=== PATIENT | female | born 1945 | race African-American/Black ===

== ENCOUNTER → 2016-08-08 | Day surgery (SDC) | payer MEDICARE ==
[~2016-08-08] MED LIST: ACET1TAB86 PO; AMLO5 PO; APIX5TAB PO; ASPI-99 PO; ASPI325T PO; ASPI81CH PO; ATEN50TA PO; ATOR20TA15 PO; BENT20TA PO; CELE100C PO; CIPR-9 PO; CLON.1 PO; CLON.2 PO; CLOTCRE TOPICAL; COUG100S PO; DOCU1CAP39 PO; FAMO20TA2 PO; FERR325T20 PO; FLUO20CA12 PO; GABA100C4 PO; GLIP10TA6 PO; HYDR-3516 PO; HYDR-3533 PO; HYDR12.57 PO; ISOS10TA PO; ISOS30TA3 PO; LACTATED RINGER'S 1000 ML INJ 1,000 ML ONE; LANTINJ SQ; LATA0.002 EACH EYE; LEVEMIR SQ; LIDOCAINE HCL 1% 50 ML VIAL ONE; LISI-515 PO; METF500 PO; METF850T PO; MIDAZOLAM HCL 2 MG/2 ML VIAL ONE; NALO1TAB2 PO; NEXI40CA PO; NORC5TAB PO; OXYB5TAB PO; OXYB5TAB10 PO; PANT40TA3 PO; PERC7.5T13 PO; POLY17S PO; PRAV40TA PO; PRAV40TA2 PO; PROPOFOL 200 MG/20 ML AMP IV ONE; TRIAMCINOLONE ACETONIDE 40 MG/ML VIAL ONE; VITA500T2 PO; XARE20TA PO
--- NOTE | 2016-08-08 14:06 | TN ---
cc: KATHLEEN MACDONALD M.D. DATE OF SURGERY: 08/08/2016 PREOPERATIVE DIAGNOSIS Right hip osteoarthritis, arthrogryposis (hip stiffness). POSTOPERATIVE DIAGNOSIS Right hip osteoarthritis, arthrogryposis (hip stiffness). PROCEDURE Right hip manipulation, intraarticular steroid injection, fluoroscopic guidance of needle under anesthesia. SURGEON Patrice Macdonald MD ASSESSMENT Staff SPECIMEN None. ESTIMATED BLOOD LOSS None. COMPLICATIONS None. ANESTHESIA General, TIVA. DRAINS None. CONDITION Stable PLAN OF ACTIVITY Per orders. DETAILS OF PROCEDURE The patient was brought into the operating room, had satisfactory TIVA anesthesia by the Department of Anesthesia. The right hip and lower extremity was prepped and draped in the usual sterile manner. Under fluoroscopic guidance an 18-gauge spinal needle was introduced into the right hip joint. The hip was injected with 1 cc of Kenalog 40 and 5 cc of 1% plain lidocaine. The needle was withdrawn. A Band-Aid was placed over the injection site. The hip was manipulated under anesthesia. Flexion was to 110 degrees, abduction was to 40 degrees with good rotation. The patient tolerated the procedure well and arrived in the recovery room in stable and satisfactory addition. X-ray of the right hip, one view AP, shows status post right hip manipulation, satisfactory position of the 18-gauge spinal needle in the right hip joint. Right hip osteoarthritis. No obvious fracture, dislocation or subluxation. MD LOKI Ngo/MARIELY /1:49 PM /2:01 PM
== END | disposition home or self-care (01) ==
LOC: ESDC 12:04
PROVIDERS: ATTEND Orthopaedic Surgery Orthopaedic Surgery of the Spine
DX: M16.11 Unilateral primary osteoarthritis, right hip (principal); Q68.8 Other specified congenital musculoskeletal deformities; E11.9 Type 2 diabetes mellitus without complications; Z79.4 Long term (current) use of insulin
CPT/HCPCS: 01200; 27275; 73501; 76000; 82948; J2250; J3010; J3301; J7120

== ENCOUNTER 2016-10-30 12:01 | Day surgery (SDC) | payer MEDICARE ==
[~2016-10-30] VITALS: Ht 160 cm; Wt 95.5 kg
[~2016-10-30 12:01] MED LIST changes: -ACET1TAB86 PO; -AMLO5 PO; -APIX5TAB PO; -ASPI-99 PO; -ASPI325T PO; -ATOR20TA15 PO; -CIPR-9 PO; -CLON.1 PO; -CLON.2 PO; -COUG100S PO; -DOCU1CAP39 PO; -FAMO20TA2 PO; -FERR325T20 PO; -FLUO20CA12 PO; -GABA100C4 PO; -HYDR-3516 PO; -ISOS10TA PO; -ISOS30TA3 PO; +LACTATED RINGER'S 1000 ML INJ 1,000 ML IV ONE; -LACTATED RINGER'S 1000 ML INJ 1,000 ML ONE; -LEVEMIR SQ; -LIDOCAINE HCL 1% 50 ML VIAL ONE; -LISI-515 PO; -METF500 PO; -MIDAZOLAM HCL 2 MG/2 ML VIAL ONE; +NEOSTIGMINE 3 MG/3 ML SYR IV ONE; +ONDANSETRON HCL 4 MG/2 ML VIAL IV PUSH ONE; -OXYB5TAB10 PO; -PANT40TA3 PO; -PERC7.5T13 PO; +PHENYLEPH/NS 1000 MCG/10 ML SYR IV ONE; -POLY17S PO; -PRAV40TA PO; -TRIAMCINOLONE ACETONIDE 40 MG/ML VIAL ONE; -VITA500T2 PO; -XARE20TA PO; +ePHEDrine/NS 25 MG/5 ML SYR IV ONE
[2016-10-30] MEDS ORDERED: ATOR20TA15 PO (12:59)
[2016-10-30 13:00] VITALS: BP 163/80; PULSE 79; RESP 16; TEMP 98; O2SAT 98
[2016-10-30] MEDS ORDERED: XARE20TA PO (13:23)
[2016-10-30] MEDS ORDERED: CHLORHEXIDINE GLUCONATE 4% SOLN 120 ML BTL TOPICAL SCH (13:45)
[2016-10-30] MEDS ORDERED: ceFAZolin 1,000 MG/NS 100 ML IV SCH ×2 (13:45)
[2016-10-30] MEDS ORDERED: INSULIN HUMAN REGULAR 1,000 UNITS/10 ML VIAL SQ PRN (13:45)
[2016-10-30] MEDS ORDERED: CHLORHEXIDINE GLUCONATE 2 % 1 PACK (2 CLOTHS) TOPICAL PRN (13:45)
[2016-10-30] MEDS ORDERED: METOPROLOL TARTRATE 25 MG TAB PO PRN (13:45)
[2016-10-30] MEDS ORDERED: POVIDONE IODINE 5% (ANTISEPSIS KIT) 4 APPLICATIONS EACH NARE PRN (13:45)
[2016-10-30] MEDS ORDERED: SODIUM CHLORID 0.9% 500 ML IV PRN (13:45)
[2016-10-30] MEDS ORDERED: LACTATED RINGER'S 1000 ML IV PRN (13:45)
[2016-10-30] MEDS ORDERED: ceFAZolin INJ 1,000 MG VIAL ONE (13:55)
[2016-10-30] MEDS ORDERED: GENTAMICIN SULFATE 80 MG/2 ML VIAL IRRIGATION ONE (15:30)
[2016-10-30] MEDS ORDERED: BUPIVACAINE/EPINEPHRINE 0.25% 50 ML VIAL INFIL ONE (15:30)
[2016-10-30] MEDS ORDERED: fentaNYL CITRATE 250 MCG/5 ML AMP ONE (17:15)
[2016-10-30] MEDS ORDERED: *ENALAPRILAT 1.25 MG/ML VIAL PERIprocedural Use ONLY ONE (17:32)
[2016-10-30] MEDS ORDERED: *ONDANSETRON 4 MG VIAL PERIprocedural Use ONLY ONE (17:44)
[2016-10-30] MEDS ORDERED: ACETAMINOPHEN/HYDROcodone 325 MG/7.5 MG TAB ONE (18:00)
--- NOTE | 2016-10-30 18:04 | RADRPT ---
EXAM DATE/TIME: 10/30/2016 16:26 [facility] COMPARISON: No previous studies available for comparison. INDICATIONS : Lumbar spine L4-5 laminectomy. OR. MEDICAL HISTORY : Cardiovascular disease. Hypertension Arthritis. Diabetes. SURGICAL HISTORY : Hysterectomy. ENCOUNTER: Initial ACUITY: 1 day PAIN SCORE: Non-responsive. LOCATION: Lumbar L4-5 FINDINGS: A single lateral view of the lumbar spine was performed. A localizer is identified above and below th e L5 lamina. CONCLUSION: Level localizers at the L5 level. Héctor Barrios MD on October 30, 2016 at 18:01 Board Certified Radiologist. This report was verified electronically.
[2016-10-30] MEDS ORDERED: ACETAMINOPHEN/HYDROcodone 325 MG/7.5 MG TAB PO PRN ×2 (18:15)
[2016-10-30] MEDS ORDERED: DO NOT ADM ANY ANTICOAGULANT DRUGS PRN (18:30)
[2016-10-30 18:45] VITALS: BP 175/78; PULSE 82; RESP 18; O2SAT 94
--- NOTE | 2016-10-31 15:52 | EKG ---
Date Performed: 10/30/2016 Time Performed: 13:51:19 PTAGE: 71 years EKG: Sinus rhythm LEFT VENTRICULAR HYPERTROPHY AND ST-T CHANGE POSSIBLE ANTERIOR MYOCARDIAL INFARCTION , OF INDETERMIN ATE AGE Compared to prior tracing no significant change ABNORMAL ECG PREVIOUS TRACING : 06/21/2016 10.30 DOCTOR: Evangelina Huston Interpretating Date/Time 10/31/2016 15:48:31
--- NOTE | 2016-11-01 08:16 | MP ---
cc: KATHLEEN TUCKER M.D., ELIZABETH M.D. MILLER, CRAIG D.O. DHAND, ARUN M.D. DATE OF SURGERY: 10/30/2016 PREOPERATIVE DIAGNOSIS 1. L4-5 moderately severe spinal stenosis. 2. L4-5 grade 1 spondylolisthesis. 3. Left greater right lumbar radiculitis with left greater than right lower extremity weakness, left foot drop. 4. Lumbar spine degenerative disk disease, osteoarthritis. POSTOPERATIVE DIAGNOSIS 1. L4-5 moderately severe spinal stenosis. 2. L4-5 grade 1 spondylolisthesis. 3. Left greater right lumbar radiculitis with left greater than right lower extremity weakness, left foot drop. 4. Lumbar spine degenerative disk disease, osteoarthritis. PROCEDURE L4-5 bilateral decompressive hemilaminectomy, bilateral foraminotomy, bilateral partial facetectomy with decompression of the nerve roots. SURGEON Patrice Tucker MD DAIRY LAB TECHNICIAN DESMOND Gonzalez. ESTIMATED BLOOD LOSS 200 ccs. SPECIMEN None. ANESTHESIA General. DRAIN None. CONDITION Stable. PLAN OF ACTIVITY As per orders. PROCEDURE By conventions assistant DESMOND Gonzalez was present for the entire surgical case. She was medically necessary for the entire case because of the complexity of the case and to facilitate the performance of the procedure. The OFFICIAL GREETER at the back table was not a skill set for this case to manipulate the instruments, e.g., multiple different types of soft tissue retractors and nerve root retractors. The patient was brought in the operating room and had satisfactory general endotracheal anesthesia by Dr. Drake, Department of Anesthesia. Because of the patient's obesity great care was made to protect all pressure points. The lumbosacral spine was prepped and draped in usual sterile manner. Localizing x-ray was used to confirm the L4-5 interspace. 0.25% Marcaine with epinephrine was used to infiltrate the operative site to provide postoperative analgesia and hemostasis. Small midline incision was made over L4-5. Dissection was carried through skin and subcutaneous tissue down to the tips of the posterior spinous processes. The paraspinal musculature was gently removed from the posterior elements. A bilateral localizing x-ray again was used to confirm the L4-5 interspace. A bilateral decompressive hemilaminectomy was performed at L4-5. The decompression was carried down to just below the pedicle of L5 and just to above the interspace at L4-5. The patient was found to have moderately severe to severe spinal stenosis, significant foraminal stenosis. The bilateral decompressive hemilaminectomy was performed, and also bilateral foraminotomy, partial facetectomies. With this the patient was found to have very excellent decompression of the neurological elements. There is no evidence of any CSF leaks or bleeding. SurgiFlo was used to maintain hemostasis. The wound was irrigated with copious amounts of sterile saline antibiotic solution. The wound itself was dry. The wound was closed in routine layers, fascia was closed with #2 Tycron suture, subcu layer with 2-0 Vicryl, skin was approximated with a running subcuticular 3-0 Vicryl with Dermabond on the skin. Sterile dressings were applied. The patient tolerated the procedure well and arrived in the recovery room in stable and satisfactory condition. MD LOKI Ngo/HARPER /4:57 PM /7:58 AM
== END 2016-10-30 18:45 | disposition home or self-care (01) ==
LOC: HSDC 12:01
PROVIDERS: ATTEND Orthopaedic Surgery Orthopaedic Surgery of the Spine
DX: M48.06 Spinal stenosis, lumbar region (principal); M43.16 Spondylolisthesis, lumbar region; M21.372 Foot drop, left foot; M54.16 Radiculopathy, lumbar region; R53.1 Weakness; M51.36 Other intervertebral disc degeneration, lumbar region; R94.31 Abnormal electrocardiogram [ECG] [EKG]; E11.9 Type 2 diabetes mellitus without complications; I10 Essential (primary) hypertension; I25.10 Atherosclerotic heart disease of native coronary artery without angina pectoris; Z79.4 Long term (current) use of insulin
CPT/HCPCS: 00630; 63030; 72020; 76000; 82948; 93005; J0690; J1580; J2370; J2405; J2710; J3010; J7120

== ENCOUNTER 2016-11-01 09:56 | Inpatient (IN) | payer MEDICARE ==
[~2016-11-01] VITALS: Ht 165.1 cm; Wt 103.3 kg
[2016-11-01] VITALS (14 sets, daily range): BP systolic 146–232; BP diastolic 61–106; PULSE 85–111; RESP 16–23; TEMP 98.4–102.8; O2SAT 91–100
[~2016-11-01 09:56] MED LIST changes: +ATOR20TA15 PO; -BENT20TA PO; -CLOTCRE TOPICAL; -HYDR-3533 PO; -LACTATED RINGER'S 1000 ML INJ 1,000 ML IV ONE; -NALO1TAB2 PO; -NEOSTIGMINE 3 MG/3 ML SYR IV ONE; -NORC5TAB PO; -ONDANSETRON HCL 4 MG/2 ML VIAL IV PUSH ONE; -PHENYLEPH/NS 1000 MCG/10 ML SYR IV ONE; -PRAV40TA2 PO; -PROPOFOL 200 MG/20 ML AMP IV ONE; +XARE20TA PO; -ePHEDrine/NS 25 MG/5 ML SYR IV ONE
[2016-11-01] MEDS ORDERED: PERC7.5T13 PO (10:30)
--- NOTE | 2016-11-01 10:54 | PD ---
HPI Chief Complaint: Back/ Neck Pain or Injury Time Seen by Provider: 10:15 Travel History International Travel<30 days: No Contact w/Intl Traveler<30days: No Traveled to known affect area: No History of Present Illness HPI 71yo F with PMH of HTN, IDDM presents to the ED with c/o inability to bear weight on either leg. Pt had L4-5 bilateral decompressive hemilaminectomy, bilateral foraminotomy, bilateral partial facetectomy with decompression of nerve roots by Dr. Miller on 10/30/16. As per daughter, pt has been more lethargic since the surgery and last took oxycodone at 1am today and only took half. States she has not been as active and has not gotten out of bed. States that she is having worsening pain and weakness on left leg and now is unable to bear weight on right leg which is new. Denies any new numbness. Pt feels warm at home but no documented fever. On review of systems, pt states she has chest pain but cannot elaborate on it. PFSH Past Medical History Hx Anticoagulant Therapy: No (off for a week though, xarelto) Arthritis: Yes Blood Disorders: No Cancer: No Cardiovascular Problems: Yes (htn) High Cholesterol: Yes Diabetes: Yes (metformin) Patient Takes Glucophage: Yes Diminished Hearing: No Diverticulitis: Yes Gastrointestinal Disorders: Yes (GERD) GERD: Yes Genitourinary: No Hypertension: Yes Immune Disorder: No Musculoskeletal: Yes Neurologic: Yes (FOOT DROP ON LEFT) Psychiatric: No Reproductive: No Respiratory: No Tetanus Vaccination: > 5 Years Influenza Vaccination: No ?: Not : 5 Para: 5 Miscarriage: 0 : 0 Past Surgical History Abdominal Surgery: No AICD: No Cardiac Surgery: Yes (CARDIAC CATH) Ear Surgery: No Endocrine Surgery: No Eye Surgery: No Genitourinary Surgery: No Gynecologic Surgery: No Hysterectomy: Yes Joint Replacement: No Oral Surgery: No Pacemaker: No Thoracic Surgery: No Other Surgery: Yes (partial hysterectomy 20 yrs ) Social History Alcohol Use: No Tobacco Use: No Substance Use: No Allergies-Medications (Allergen,Severity, Reaction): Coded Allergies: Darvocet-N 100 (Verified Allergy, Severe, RASH, 11/01/16) Reported Meds & Prescriptions Reported Meds & Active Scripts Active Reported Percocet (Oxycodone-Acetaminophen) 7.5-325 mg Tab 1 Tab PO Q4H PRN Xarelto (Rivaroxaban) 20 Mg Tab 20 Mg PO DAILY Atorvastatin (Atorvastatin Calcium) 20 Mg Tab 20 Mg PO DAILY Celebrex (Celecoxib) 100 Mg Cap 100 Mg PO BID Nexium (Esomeprazole DR) 40 Mg Capdr 40 Mg PO DAILY Oxybutynin ER 24 HR (Oxybutynin Chloride) 5 Mg Tab 5 Mg PO DAILY Latanoprost Opth Drops (Latanoprost) 0.005% Drops 1 Drop EACH EYE HS Refrigerate until opened. Lantus Solostar Pen Inj (Insulin Glargine) 300 Unit/3 Ml Pen 15 Units SQ BID Metformin (Metformin HCl) 850 Mg Tab 850 Mg PO TIDPC With meals Glipizide 10 Mg Tab 10 Mg PO BIDAC Take 30 minutes before a meal Atenolol 50 Mg Tab 50 Mg PO DAILY Aspirin 81 Mg Chew 81 Mg PO DAILY Review of Systems Except as stated in HPI: all other systems reviewed are Neg Physical Exam Narrative GENERAL: 71yo F not in acute distress. SKIN: Focused skin assessment warm/dry. HEAD: Atraumatic. Normocephalic. EYES: Pupils equal and round. EOMI. No scleral icterus. No injection or drainage. ENT: No nasal bleeding or discharge. Mucous membranes pink and moist. NECK: Trachea midline. No JVD. CARDIOVASCULAR: Regular rate and rhythm. No murmur appreciated. RESPIRATORY: No accessory muscle use. Clear to auscultation. Breath sounds equal bilaterally. GASTROINTESTINAL: Abdomen soft, non-tender, nondistended. BACK: +midline lumbar surgical scar, no erythema, drainage, hematoma, or mass. MUSCULOSKELETAL: No obvious deformities. No clubbing. No cyanosis. No edema. NEUROLOGICAL: Arousable and answers questions but sleepy. AAOx2. Pt is more lethargic as per family. No obvious cranial nerve deficits. Bilateral upper extremity 5/5 muscle strength. Decreased muscle strength in bilateral lower extremities, left more than right. Sensation intact. Data Data Last Documented VS Vital Signs Date Time Temp Pulse Resp B/P Pulse Ox O2 Delivery O2 Flow Rate FiO2 11/01/16 12:01 101 16 183/79 95 Nasal Cannula 2 11/01/16 09:59 98.7 Orders Electrocardiogram (11/01/16 ) Ammonia (11/01/16 10:41) Basic Metabolic Panel (Bmp) (11/01/16 10:41) Complete Blood Count With Diff (11/01/16 10:41) Creatine Kinase (Cpk) (11/01/16 10:41) Prothrombin Time / Inr (Pt) (11/01/16 10:41) Act Partial Throm Time (Ptt) (11/01/16 10:41) Troponin I (11/01/16 10:41) Thyroid Stimulating Hormone (11/01/16 10:41) Lactic Acid Sepsis Protocol (11/01/16 10:41) Urinalysis - C+S If Indicated (11/01/16 10:41) Blood Culture (11/01/16 10:41) Chest, Single Ap (11/01/16 10:41) Ct Brain W/O Iv Contrast(Rout) (11/01/16 10:41) Blood Glucose (11/01/16 10:41) Ecg Monitoring (11/01/16 10:41) Iv Access Insert/Monitor (11/01/16 10:41) Oximetry (11/01/16 10:41) Urinary Catheter Insert/Apply (11/01/16 10:41) Alcohol (Ethanol) (11/01/16 10:41) Hydralazine Inj (Apresoline Inj) (11/01/16 11:00) Beta Hydroxybutyrate (Acetone) (11/01/16 10:45) Urine Culture (11/01/16 11:05) CKMB (11/01/16 10:45) CKMB% (11/01/16 10:45) Vancomycin Inj (Vancomycin Inj) (11/01/16 12:30) Piperacil-Tazo 3.375 Gm Premix (Zosyn 3. (11/01/16 12:30) Sodium Chlor 0.9% 1000 Ml Inj (Ns 1000 M (11/01/16 12:30) Sodium Chlor 0.9% 1000 Ml Inj (Ns 1000 M (11/01/16 12:45) Mri Brain W/O Contrast (11/01/16 ) Mra Brain W/O Contrast (Cow) (11/01/16 ) Admit Order (Ed Use Only) (11/01/16 13:22) Mri L Spine W&W/O Contrast (11/01/16 ) Labs Laboratory Tests Test 11/01/16 11/01/16 10:45 11:05 White Blood Count 13.0 TH/MM3 Red Blood Count 4.19 MIL/MM3 Hemoglobin 11.9 GM/DL Hematocrit 37.1 % Mean Corpuscular Volume 88.5 FL Mean Corpuscular Hemoglobin 28.5 PG Mean Corpuscular Hemoglobin 32.2 % Concent Red Cell Distribution Width 14.5 % Platelet Count 204 TH/MM3 Mean Platelet Volume 8.9 FL Neutrophils (%) (Auto) 84.0 % Lymphocytes (%) (Auto) 9.4 % Monocytes (%) (Auto) 5.9 % Eosinophils (%) (Auto) 0.2 % Basophils (%) (Auto) 0.5 % Neutrophils # (Auto) 11.0 TH/MM3 Lymphocytes # (Auto) 1.2 TH/MM3 Monocytes # (Auto) 0.8 TH/MM3 Eosinophils # (Auto) 0.0 TH/MM3 Basophils # (Auto) 0.1 TH/MM3 CBC Comment DIFF FINAL Differential Comment Prothrombin Time 14.4 SEC Prothromb Time International 1.3 RATIO Ratio Activated Partial 32.8 SEC Thromboplast Time Sodium Level 132 MEQ/L Potassium Level 4.0 MEQ/L Chloride Level 92 MEQ/L Carbon Dioxide Level 30.2 MEQ/L Anion Gap 10 MEQ/L Blood Urea Nitrogen 8 MG/DL Creatinine 0.85 MG/DL Estimat Glomerular Filtration 80 ML/MIN Rate Random Glucose 278 MG/DL Lactic Acid Level 2.1 mmol/L Calcium Level 9.1 MG/DL Magnesium Level 1.1 MG/DL Ammonia LESS THAN 10 MCMOL/L Total Creatine Kinase 645 U/L Creatine Kinase MB 1.4 NG/ML Creatine Kinase MB % 0.2 % Troponin I 0.15 NG/ML Lipase 62 U/L Thyroid Stimulating Hormone 0.709 uIU/ML 3rd Gen Ethyl Alcohol Level LESS THAN 3 MG/DL B-Hydroxybutyrate 0.45 MMOL/L Urine Color YELLOW Urine Turbidity HAZY Urine pH 6.5 Urine Specific [place] 1.014 Urine Protein 30 mg/dL Urine Glucose (UA) 300 mg/dL Urine Ketones 10 mg/dL Urine Occult Blood TRACE Urine Nitrite NEG Urine Bilirubin NEG Urine Urobilinogen LESS THAN 2.0 MG/DL Urine Leukocyte Esterase TRACE Urine RBC 1 /hpf Urine WBC 4 /hpf Urine Squamous Epithelial 8 /hpf Cells Urine Transitional Epithelial <1 /hpf Cells Urine Bacteria RARE /hpf Urine Hyaline Casts 1 /lpf Urine Yeast (Budding) RARE Microscopic Urinalysis Comment CATH-CULTURE IND MDM Medical Decision Making Medical Screen Exam Complete: Yes Emergency Medical Condition: Yes Interpretation(s) EKG: NSR 92bpm. LAD. LVH. 1mm ST elevation V1, V2 similar to prior. PVC. Laboratory Tests Test 11/01/16 11/01/16 10:45 11:05 White Blood Count 13.0 TH/MM3 (4.0-11.0) Red Blood Count 4.19 MIL/MM3 (4.00-5.30) Hemoglobin 11.9 GM/DL (11.6-15.3) Hematocrit 37.1 % (35.0-46.0) Mean Corpuscular Volume 88.5 FL (80.0-100.0) Mean Corpuscular Hemoglobin 28.5 PG (27.0-34.0) Mean Corpuscular Hemoglobin 32.2 % Concent (32.0-36.0) Red Cell Distribution Width 14.5 % (11.6-17.2) Platelet Count 204 TH/MM3 (150-450) Mean Platelet Volume 8.9 FL (7.0-11.0) Neutrophils (%) (Auto) 84.0 % (16.0-70.0) Lymphocytes (%) (Auto) 9.4 % (9.0-44.0) Monocytes (%) (Auto) 5.9 % (0.0-8.0) Eosinophils (%) (Auto) 0.2 % (0.0-4.0) Basophils (%) (Auto) 0.5 % (0.0-2.0) Neutrophils # (Auto) 11.0 TH/MM3 (1.8-7.7) Lymphocytes # (Auto) 1.2 TH/MM3 (1.0-4.8) Monocytes # (Auto) 0.8 TH/MM3 (0-0.9) Eosinophils # (Auto) 0.0 TH/MM3 (0-0.4) Basophils # (Auto) 0.1 TH/MM3 (0-0.2) CBC Comment DIFF FINAL Differential Comment Prothrombin Time 14.4 SEC (9.8-11.6) Prothromb Time International 1.3 RATIO Ratio Activated Partial 32.8 SEC Thromboplast Time (24.3-30.1) Sodium Level 132 MEQ/L (136-145) Potassium Level 4.0 MEQ/L (3.5-5.1) Chloride Level 92 MEQ/L (98-107) Carbon Dioxide Level 30.2 MEQ/L (21.0-32.0) Anion Gap 10 MEQ/L (5-15) Blood Urea Nitrogen 8 MG/DL (7-18) Creatinine 0.85 MG/DL (0.50-1.00) Estimat Glomerular Filtration 80 ML/MIN (>89) Rate Random Glucose 278 MG/DL (74-106) Lactic Acid Level 2.1 mmol/L (0.4-2.0) Calcium Level 9.1 MG/DL (8.5-10.1) Ammonia LESS THAN 10 MCMOL/L (11-32) Total Creatine Kinase 645 U/L (26-192) Creatine Kinase MB 1.4 NG/ML (0.5-3.6) Creatine Kinase MB % 0.2 % (0.0-4.0) Troponin I 0.15 NG/ML (0.02-0.05) Thyroid Stimulating Hormone 0.709 uIU/ML 3rd Gen (0.358-3.740) Ethyl Alcohol Level LESS THAN 3 MG/DL (0-5) B-Hydroxybutyrate 0.45 MMOL/L (0.00-0.39) Urine Color YELLOW (YELLW/STRAW) Urine Turbidity HAZY (CLEAR) Urine pH 6.5 (5.0-8.5) Urine Specific [place] 1.014 (1.002-1.035) Urine Protein 30 mg/dL (NEG-TRACE) Urine Glucose (UA) 300 mg/dL (NEG) Urine Ketones 10 mg/dL (NEG) Urine Occult Blood TRACE (NEG) Urine Nitrite NEG (NEG) Urine Bilirubin NEG (NEG) Urine Urobilinogen LESS THAN 2.0 MG/DL (LESS THAN 2.0) Urine Leukocyte Esterase TRACE (NEG) Urine RBC 1 /hpf (0-3) Urine WBC 4 /hpf (0-5) Urine Squamous Epithelial 8 /hpf (0-5) Cells Urine Transitional Epithelial <1 /hpf (NONE) Cells Urine Bacteria RARE /hpf (NONE) Urine Hyaline Casts 1 /lpf (RARE) Urine Yeast (Budding) RARE (NONE) Microscopic Urinalysis Comment CATH-CULTURE IND Last Impressions Head CT 11/01/16 1041 Signed Impressions: Service Date/Time: Tuesday, November 01, 2016 11:29 - CONCLUSION: 1. No acute intracranial abnormality. 2. Pineal cyst. Zhen Arboleda MD Chest X-Ray 11/01/16 1041 Signed Impressions: Service Date/Time: Tuesday, November 01, 2016 12:04 - CONCLUSION: Cardiomegaly with patchy airspace disease as described above. Considerations include both congestive failure an a inflammatory process. Dameon Simmons MD FACR Differential Diagnosis CVA vs. hypertensive emergency vs. nerve compression vs. hematoma Narrative Course 71yo F with AMS and inability to bear weight since her surgery 2 days ago. I discussed with Dr. Galvan who thinks that left pain and weakness is expected. Surgical site looks well in lumbar spine. No erythema, drainage or abscess. Labs reviewed, leukocytosis at 13.0. Elevated lactic acid at 2.1. Glucose 278. No increased anion gap. Ammonia is negative. TSH normal. Troponin mildly elevated at 0.15. b-Hydroxybutyrate elevated at 0.45. Pt is very dry, given NS IVF. Pt did have chest pain, but elevated troponin may be secondary to sepsis, will trend. UA showed trace leukocyte. Pt empirically given vancomycin and zosyn. Blood pressure was elevated and given hydralazine 10mg IV. CXR showed cardiomegaly with patchy airspace disease. CT brain showed no acute intracranial abnormality. Discussed with Dr. Fagan and accepted to his service for altered mental status. Critical Care Narrative Aggregate critical care time was 60 minutes. Time to perform other separately billable procedures was not included in the critical care time. My time did not include minutes spent treating any other patients simultaneously or on activities that did not directly contribute to the patient's treatment. The services I provided to this patient were to treat and/or prevent clinically significant deterioration that could result in: cardiovascular collapse or . I provided critical care services requiring my management, as noted below: Chart data review, documentation time, medication orders and management, vital sign assessments/reviewing monitor data, ordering and reviewing lab tests, ordering and interpreting/reviewing x-rays and diagnostic studies, care of the patient and discussion of the patient with the admitting physicians. Diagnosis Primary Impression: Sepsis Qualified Code: A41.9 - Sepsis, due to unspecified organism Additional Impression: Altered mental state Qualified Code: R41.82 - Altered mental status, unspecified altered mental status type Admitting Information Admitting Physician Requests: it Loni Hernandez DO November 01, 2016 10:54
[2016-11-01] MEDS ORDERED: hydrALAZINE HCL 20 MG/ML VIAL IV PUSH ONE (11:00)
[2016-11-01 11:10] LABS: BASOPHIL # 0.1 TH/MM3 (0-0.2); BASOPHIL % 0.5 % (0.0-2.0); EOSINOPHIL % 0.2 % (0.0-4.0); HEMATOCRIT 37.1 % (35.0-46.0); HEMO FLAGS DIFF FINAL; LYMPH % 9.4 % (9.0-44.0); LYMPHOCYTE # 1.2 TH/MM3 (1.0-4.8); MEAN CELL VOLUME 88.5 FL (80.0-100.0); MEAN CORPUSCULAR HEMOGLOBIN 28.5 PG (27.0-34.0); MEAN CORPUSCULAR HGB CONC 32.2 % (32.0-36.0); MONO % 5.9 % (0.0-8.0); PLATELET COUNT 204 TH/MM3 (150-450); RED BLOOD COUNT 4.19 MIL/MM3 (4.00-5.30); RED CELL DISTRIBUTION WIDTH 14.5 % (11.6-17.2)
[2016-11-01 11:23] LABS: BACTERIA, URINE RARE /hpf; BLOOD, URINE TRACE (NEG); GLUCOSE,URINE 300 mg/dL (NEG); HYALINE CAST, URINE 1 /lpf (RARE); KETONE, URINE 10 mg/dL (NEG); NITRITE,URINE NEG (NEG); PH, URINE 6.5 (5.0-8.5); SQUAMOUS EPITHELIAL CELL URINE 8 /hpf (0-5); TRANSITIONAL EPI CELLS, URINE <1 /hpf; URINE COLOR YELLOW (YELLW/STRAW)
[2016-11-01 11:25] LABS: APTT (PATIENT) 32.8 SEC (24.3-30.1); INTERNATIONAL NORMALIZED RATIO 1.3 RATIO; PROTHROMBIN TIME - PATIENT 14.4 SEC (9.8-11.6)
[2016-11-01 11:29] LABS: COMMENT (UR) CATH-CULTURE IND; CULTURE IF INDICATED CATH CULTURE IND
[2016-11-01 11:35] LABS: ANION GAP 10 MEQ/L (5-15); BETA-HYDROXYBUTYRATE 0.45 MMOL/L (0.00-0.39); BICARBONATE 30.2 MEQ/L (21.0-32.0); BLOOD UREA NITROGEN 8 MG/DL (7-18); CHLORIDE 92 MEQ/L (98-107); CREATINE KINASE 645 U/L (26-192); GLOMERULAR FILTRATION RATE 80 ML/MIN (>89); SODIUM (NA) 132 MEQ/L (136-145)
--- NOTE | 2016-11-01 11:44 | RADRPT ---
EXAM DATE/TIME: 11/01/2016 11:29 [facility] COMPARISON: No previous studies available for comparison. INDICATIONS : Altered mental status, lethargic. RADIATION DOSE: 62.65 CTDIvol (mGy) MEDICAL HISTORY : Hypertension. Cardiac cath SURGICAL HISTORY : Hysterectomy. ENCOUNTER: Initial ACUITY: 1 day PAIN SCALE: 0/10 LOCATION: TECHNIQUE: Multiple contiguous axial images were obtained of the head. Using automated exposure control and adj ustment of the mA and/or kV according to patient size, radiation dose was kept as low as reasonably a chievable to obtain optimal diagnostic quality images. FINDINGS: CEREBRUM: The ventricles are normal for age. No evidence of midline shift, mass lesion, hemorrhage or acute in farction. No extra-axial fluid collections are seen. POSTERIOR FOSSA: The cerebellum and brainstem are intact. Partially calcified pineal cyst seen. The 4th ventricle is m idline. The cerebellopontine angle is unremarkable. EXTRACRANIAL: The visualized portion of the orbits is intact. SKULL: The calvaria is intact. No evidence of skull fracture. CONCLUSION: 1. No acute intracranial abnormality. 2. Pineal cyst. Zhen Arboleda MD on November 01, 2016 at 11:40 Board Certified Radiologist. This report was verified electronically.
[2016-11-01 11:50] LABS: CKMB 1.4 NG/ML (0.5-3.6)
--- NOTE | 2016-11-01 12:27 | RADRPT ---
EXAM DATE/TIME: 11/01/2016 12:04 [facility] COMPARISON: No previous studies available for comparison. INDICATIONS : Weakness and chest pain. MEDICAL HISTORY : Hypertension. Cardiac cath SURGICAL HISTORY : Hysterectomy. ENCOUNTER: Initial ACUITY: 1 day PAIN SCORE: Non-responsive. LOCATION: Bilateral chest FINDINGS: The lungs are under aerated. The heart is enlarged. Minimal patchy airspace disease is present that may be related to congestive failure. Early inflammatory process would be consideration. The portio n of the bony skeleton visualized is unremarkable. CONCLUSION: Cardiomegaly with patchy airspace disease as described above. Considerations include both congestive failure an a inflammatory process. Dameon Simmons MD FACR on November 01, 2016 at 12:23 Board Certified Radiologist. This report was verified electronically.
[2016-11-01] MEDS ORDERED: SODIUM CHLOR 0.9% 1000 ML INJ 1,000 ML IV ONE ×2 (12:30→12:45)
[2016-11-01] MEDS ORDERED: PIPERACIL-TAZO 3.375 GM PREMIX 50 ML IV ONE (12:30)
[2016-11-01] MEDS ORDERED: VANCOMYCIN INJ 1,000 MG in SODIUM CHLOR 0.9% 250 ML INJ 250 ML IV ONE (12:30)
[2016-11-01 12:59] LABS: LACTIC ACID GHOST NOT REPORTABLE
[2016-11-01] MEDS ORDERED: DEXTROSE 50% IN WATER 50 ML VIAL(D50) IV PUSH PRN (13:30)
[2016-11-01] MEDS ORDERED: Vancomycin Consult Pharmacy 1 EA OTHER SCH (13:30)
[2016-11-01] MEDS ORDERED: GLUCAGON 1 MG/ML VIAL OTHER PRN (13:30)
[2016-11-01] MEDS ORDERED: MISCELLANEOUS NURSING INFORMATION XX SCH (13:45)
[2016-11-01] MEDS ORDERED: SODIUM CHLORIDE 0.9% FLUSH 10 ML FLUSH IV FLUSH PRN ×2 (13:45→18:15)
[2016-11-01] MEDS ORDERED: CHLORHEXIDINE GLUCONATE 2 % 1 PACK (2 CLOTHS) TOP PRN (13:45)
[2016-11-01] MEDS ORDERED: RESP: ALBUTEROL 2.5 MG/3 ML NEB (PRN) INH (14:00)
[2016-11-01] MEDS ORDERED: ONDANSETRON HCL 4 MG/2 ML VIAL IV PRN (14:00)
--- NOTE | 2016-11-01 14:28 | HHI.HP ---
[facility] Service Critical Care Medicine Primary Care Physician Non-Staff Admission Diagnosis Sepsis, Altered mental status Diagnosis: (1) Abdominal pain Diagnosis: Principal (2) Altered mental state Diagnosis: Principal (3) Hypertension Diagnosis: Principal (4) Elevated troponin Diagnosis: Principal (5) Gastro-esophageal reflux Diagnosis: Principal (6) Diabetes mellitus Diagnosis: Principal (7) Left foot drop Diagnosis: Principal (8) History of DVT (deep vein thrombosis) Diagnosis: Principal (9) Overflow incontinence Diagnosis: Principal (10) UTI (urinary tract infection) Diagnosis: Principal (11) Diverticulosis Diagnosis: Principal (12) Glaucoma Diagnosis: Principal (13) History of lumbar laminectomy Diagnosis: Principal (14) Severe sepsis Diagnosis: Principal Chief Complaint: Consolidation/increasing bilateral lower extremities weakness status post L4/L5 bilateral decompressive hemilaminectomy/bilateral foraminotomy, bilateral partial facetectomy with decompression of the nerve roots by Dr. Burgess Travel History International Travel<30 Days: No Contact w/Intl Traveler <30 Da: No Traveled to Known Affected Are: No Sepsis Criteria SIRS Criteria (2 or more): WBC > 82140, < 4000 or > 10% bands Sepsis Criteria (SIRS+source): Infect source susp/known Severe Sepsis (+one): Lactate >2 Criteria Outcome: Meets severe sepsis criteria History of Present Illness 71-year-old AAF. Date of admission 11/01/2016. Past medical history includes recent (10/30/16) L4/L5 bilateral decompressive hemilaminectomy, bilateral foraminotomy, bilateral partial facet colectomy with decompression the nerve roots secondary to L4/L5 moderate severe spinal stenosis, left greater than right lumbar radiculitis with left greater than right lower extremity weakness and left foot drop. 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 She presents to [facility] with the following history. According to family,, patient has had weakness in her left leg and has been previously able to stand on her right leg. However since surgery, noticed increasing weakness in left and now in right lower extremity. She is able to walk once last night and was brought in by family for evaluation. Last received pain medication at 1 AM. There was concern that she is unable to stand/bear weight on the right foot . Upon presentation, she had a blood pressure 230 systolic. For this she was given [address] head revealed no acute intracranial findings. Chest x-ray shows no signs of focal pneumonia. He has a urinary tract infection and a rapid cell count of 13,000. Troponin was elevated 0.15. EKG revealed ST elevation in V1 and V2 with ST depression in leads a/aVF, V3 through V6, left axis deviation with sinus rhythm. There was vague complaints of chest pain radiating down her back towards her coccyx. This is not pressure. This does not radiate to her neck or down her shoulder. It is not sharp. On examination, she does have subjective weakness to her left lower extremity. She has range of motion her right lower extremity but unable to stand. Dr. Dhaval Tucker was notified by ED physician. He does not believe this is infectious etiology. He states that the patient might not recover function in her left lower extremity. On examination, the surgical site is clean dry and intact. Without erythema or drainage. There are no meningeal signs on examination. Review of Systems Constitutional: DENIES: Fever, Weight gain, Weight loss Endocrine: DENIES: Polydipsia, Polyuria Eyes: DENIES: Blurred vision, Double Vision Ears, nose, mouth, throat: DENIES: Tinnitus, Sinus Pain Respiratory: DENIES: Apneas Cardiovascular: COMPLAINS OF: Chest pain, DENIES: Claudication Gastrointestinal: COMPLAINS OF: Abdominal pain, DENIES: Constipation, Nausea, Vomiting Genitourinary: DENIES: Urinary frequency Musculoskeletal: DENIES: Joint Swelling Integumentary: DENIES: Abnormal pigmentation Hematologic/lymphatic: DENIES: Bruising Immunologic/allergic: DENIES: Eczema Neurologic: COMPLAINS OF: Abnormal gait, Localized weakness, Poor Balance, DENIES: Headache Psychiatric: COMPLAINS OF: Confusion, DENIES: Anxiety, Depression Past Family Social History Allergies: Coded Allergies: Darvocet-N 100 (Verified Allergy, Severe, RASH, 11/01/16) Past Medical History Glaucoma Chronic Xarelto use Hypertension Diverticulosis Gastroesophageal reflux disease Diabetes mellitus Left foot drop Spinal stenosis Overflow incontinence History of left lower extremity DVT Past Surgical History L4/L5 decompressive hemilaminectomy Partial hysterectomy cardiac catheterization - Dr. Shae Patel - per family negative Reported Medications Xarelto 20 mg by mouth daily Atenolol 50 mg by mouth daily Oxybutynin 5 mg by mouth 3 times a day Metformin 850 mill grams by mouth 3 times a day Glipizide 10 mg by mouth twice a day Nexium 40 mg by mouth daily Latanoprost 0.005 percent one drop each eye at night Celebrex 100 mg by mouth twice a day Aspirin 81 mg by mouth daily Active Ordered Medications Reviewed in EMR Family History Systolic hypertension. Social History No tobacco, alcohol or IV drug use ever Physical Exam Vital Signs Vital Signs Date Time Temp Pulse Resp B/P Pulse Ox O2 Delivery O2 Flow Rate FiO2 11/01/16 12:01 101 16 183/79 95 Nasal Cannula 2 11/01/16 10:58 18 94 Room Air 11/01/16 10:10 94 20 11/01/16 09:59 98.7 85 18 232/106 91 Physical Exam GENERAL: 71-year-old critically ill female currently resting in bed in no acute distress SKIN: Warm and dry. No rash. Lumbar postsurgical incision site clean dry and intact without erythema or drainage HEAD: Atraumatic. Normocephalic. EYES: Pupils equal and round about 3 mm bilaterally and reactive. No scleral icterus. No injection or drainage. ENT: No nasal bleeding or discharge. Mucous membranes pink and moist. NECK: Trachea midline. No JVD. No meningismus signs CARDIOVASCULAR: Regular rate and rhythm. S1, S2. No S4 without murmur RESPIRATORY: Clear to auscultation. Breath sounds equal bilaterally. GASTROINTESTINAL: Abdomen soft, non-tender, nondistended. Hypoactive bowel sounds are apparent MUSCULOSKELETAL: Extremities with trace bilateral lower extremity nonpitting edema. No obvious deformities. NEURO: Cranial nerves II through XII grossly intact. Strength is 5 out of 5 in the bilateral upper extremity. 3 out of 5 in the left lower extremity. 4 out of 5 in the right lower extremity. Normal sensation to light touch and pinprick. Awake and oriented to person and time. Not place. Knows she is 71. Recognizes sister and daughter at bedside. Laboratory Laboratory Tests Test 11/01/16 11/01/16 10:45 11:05 White Blood Count 13.0 Red Blood Count 4.19 Hemoglobin 11.9 Hematocrit 37.1 Mean Corpuscular Volume 88.5 Mean Corpuscular Hemoglobin 28.5 Mean Corpuscular Hemoglobin 32.2 Concent Red Cell Distribution Width 14.5 Platelet Count 204 Mean Platelet Volume 8.9 Neutrophils (%) (Auto) 84.0 Lymphocytes (%) (Auto) 9.4 Monocytes (%) (Auto) 5.9 Eosinophils (%) (Auto) 0.2 Basophils (%) (Auto) 0.5 Neutrophils # (Auto) 11.0 Lymphocytes # (Auto) 1.2 Monocytes # (Auto) 0.8 Eosinophils # (Auto) 0.0 Basophils # (Auto) 0.1 CBC Comment DIFF FINAL Differential Comment Prothrombin Time 14.4 Prothromb Time International 1.3 Ratio Activated Partial 32.8 Thromboplast Time Sodium Level 132 Potassium Level 4.0 Chloride Level 92 Carbon Dioxide Level 30.2 Anion Gap 10 Blood Urea Nitrogen 8 Creatinine 0.85 Estimat Glomerular Filtration 80 Rate Random Glucose 278 Lactic Acid Level 2.1 Calcium Level 9.1 Ammonia LESS THAN 10 Total Creatine Kinase 645 Creatine Kinase MB 1.4 Creatine Kinase MB % 0.2 Troponin I 0.15 Thyroid Stimulating Hormone 0.709 3rd Gen Ethyl Alcohol Level LESS THAN 3 B-Hydroxybutyrate 0.45 Urine Color YELLOW Urine Turbidity HAZY Urine pH 6.5 Urine Specific [place] 1.014 Urine Protein 30 Urine Glucose (UA) 300 Urine Ketones 10 Urine Occult Blood TRACE Urine Nitrite NEG Urine Bilirubin NEG Urine Urobilinogen LESS THAN 2.0 Urine Leukocyte Esterase TRACE Urine RBC 1 Urine WBC 4 Urine Squamous Epithelial 8 Cells Urine Transitional Epithelial <1 Cells Urine Bacteria RARE Urine Hyaline Casts 1 Urine Yeast (Budding) RARE Microscopic Urinalysis Comment CATH-CULTURE IND Date/Time Procedure Status Source Growth 11/01/16 11:05 Urine Culture Received Urine Catheterized Urine Pending 11/01/16 10:45 Aerobic Blood Culture Received Blood Peripheral Pending 11/01/16 10:45 Anaerobic Blood Culture Received Blood Peripheral Pending Result Diagram: 11/01/16 1045 11/01/16 1045 Imaging Last Impressions Head CT 11/01/16 1041 Signed Impressions: Service Date/Time: Tuesday, November 01, 2016 11:29 - CONCLUSION: 1. No acute intracranial abnormality. 2. Pineal cyst. Zhen Arboleda MD Chest X-Ray 11/01/16 1041 Signed Impressions: Service Date/Time: Tuesday, November 01, 2016 12:04 - CONCLUSION: Cardiomegaly with patchy airspace disease as described above. Considerations include both congestive failure an a inflammatory process. Dameon Simmons MD FACR Septic Shock Reassessment Heart: Regular rate and rhythm Lungs: Clear Skin: Warm, Dry Peripheral Pulses: Bounding Right Radial Bounding Left Radial Bounding Right Popliteal Bounding Left Popliteal Bounding Right Dorsalis Pedis Bounding Left Dorsalis Pedis Bounding Right Posterior Tibial Bounding Left Posterior Tibial Capillary Refill: Brisk Assessment and Plan Assessment and Plan Neuro/Psych: Acute encephalopathy - toxic metabolic # Left foot drop Glaucoma Postop day #3 L4/5 bilateral decompressive hemilaminectomy, bilateral foraminotomy , bilateral partial facetectomy with depression nerve roots secondary to L4/5 severe spinal stenosis, right lumbar radiculitis with left greater than right lower extremity weakness, left foot drop CT head 11/01 revealed no acute intracranial findings. 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 EEG ordered Check MRI brain/MRA brain and neck and MRI L-spine today rule out subclinical CVA/hematoma with underlying altered mental status and left lower extremity weakness Holding aspirin 81 mg daily light of recent surgery Neurochecks Acetaminophen for fever Continue with latanoprost 0.005-1 drop each eye at night CV: Hypertensive crisis Elevated troponin On atenolol 50 mg by mouth daily at home Cycle troponins every 6 hours 3 Resp: Nasal cannula to maintain saturations greater than equal to 92% GI: Gastroesophageal reflux disease History diverticulosis Currently nothing by mouth Protonix for GI prophylaxis. On Nexium 40 mg daily at home Colace/as needed Senokot for bowel regimen : Overflow incontinence Continue treatment Ditropan 5 mg by mouth 3 times a day UA with elevated with gastritis Endo: Diabetes mellitus Home medication Lantus 15 units subcutaneous twice a day with sliding scale insulin along with metformin 850 3 times a day and glipizide 10 mg twice a day currently on hold Sliding scale insulin/low with Accu-Cheks every 4 hours to maintain euglycemia TSH within normal limits Renal: Creatinine currently within normal limits. Recheck BMP in a.m. Heme: Leukocytosis Monitor CBC daily. Follow trends ID: Given vancomycin/Zosyn the ED. We'll place on cefepime/vancomycin for recent lumbar/neurosurgery per Becker recommendations Blood cultures 2, urine pending MSK: Osteoarthritis PT evaluate and treat FEN: Replace electrolytes as clinically indicated. Access - Utilize peripheral IV. Central line if indicated Prophylaxis - GI - Protonix - DVT - SCD/holding pharmacological prophylaxis in light of recent lumbar surgery Critical Care: The total critical care time was 55 minutes. Time to perform other separately billable procedures was not included in the critical care time. Addendum Spoke with Dr. Dhaval Tucker, surgeon. MRI brain revealed a couple areas of decreased diffusion in the centrum semiovale ovale and in KAMLESH distribution. He is okay with full dose aspirin. He would not recommend anticoagulation 1 week post lumbar surgery due to high risk of bleeding/lumbar hematoma. MRA brain revealed significant atherosclerotic disease. We will consult neurology, however stroke could've happened within the past 2 days. She is not a candidate for TPA secondary to recent lumbar surgery and unknown timing of stroke.. Started on aspirin, lipid-lowering agent and will monitor blood pressure closely. PT/OT will evaluate and treat. Echocardiogram revealed EF 70%. Mildly thickened aortic valve/calcification but knows obvious signs of embolic source currently. Code Status Full code Discussed Condition With Patient's daughter and sister. Dr. Hernandez/ED physician. Patient. Care plan discussed all questions answered. Problem Qualifiers (1) Abdominal pain: Qualified Code: R10.9 - Abdominal pain, unspecified location (2) Altered mental state: Qualified Code: R41.82 - Altered mental status, unspecified altered mental status type (3) Hypertension: Qualified Code: I10 - Essential hypertension (4) Gastro-esophageal reflux: Qualified Code: K21.9 - Gastroesophageal reflux disease, esophagitis presence not specified (5) Diabetes mellitus: Qualified Code: E11.8 - Type 2 diabetes mellitus with complication, with long- term current use of insulin (6) UTI (urinary tract infection): Qualified Code: N30.00 - Acute cystitis without hematuria (7) Diverticulosis: (8) Glaucoma: Qualified Code: H40.9 - Glaucoma of both eyes, unspecified glaucoma García Fagan MD November 01, 2016 14:28
[2016-11-01 14:46] LABS: MAGNESIUM 1.1 MG/DL (1.5-2.5)
[2016-11-01] MEDS: SODIUM CHLOR 0.9% 1000 ML INJ 1,000 ML IV SCH (15:08)
[2016-11-01] MEDS: hydrALAZINE HCL 20 MG/ML VIAL IV PUSH PRN (15:08)
[2016-11-01] MEDS: CEFEPIME INJ 2,000 MG in SODIUM CHLORIDE 0.9% INJ 100 ML IV SCH ×2 (15:17→20:56)
[2016-11-01] MEDS: RESP: ALBUTEROL 2.5 MG/IPRATROPIUM 0.5 MG NEB (SCH) INH ×2 (15:26→21:38)
[2016-11-01] MEDS ORDERED: POTASSIUM PHOSPHATE MONOBASIC 500 MG TAB PO/TUBE PRN (15:30)
[2016-11-01] MEDS ORDERED: POTASSIUM CHLOR 20 MEQ PREMIX 100 ML IV PRN ×2 (15:30)
[2016-11-01] MEDS ORDERED: MAGNESIUM SULFATE INJ 4 GM in SODIUM CHLORIDE 0.9% INJ 92 ML IV PRN (15:30)
[2016-11-01] MEDS ORDERED: POTASSIUM PHOSPHATE MONOBASIC 500 MG TAB PO PRN (15:30)
[2016-11-01] MEDS ORDERED: MAGNESIUM OXIDE 400 MG TAB PO PRN (15:30)
[2016-11-01] MEDS ORDERED: POTASSIUM CHLORIDE 25 MEQ EFFERVESCENT TAB PO PRN (15:30)
[2016-11-01] MEDS ORDERED: MAGNESIUM SULFATE INJ 2 GM in SODIUM CHLORIDE 0.9% INJ 96 ML IV PRN (15:30)
[2016-11-01] MEDS ORDERED: SODIUM PHOSPHATE INJ 30 MMOL in SODIUM CHLOR 0.9% 250 ML INJ 240 ML IV PRN (15:30)
[2016-11-01] MEDS ORDERED: POTASSIUM CHLOR 40 MEQ PREMIX 100 ML IV PRN ×2 (15:30)
[2016-11-01] MEDS: LABETALOL HCL 100 MG/20 ML VIAL IV PUSH PRN (15:56)
[2016-11-01] MEDS: INSULIN NovoLIN REGULAR SUPPLEMENTAL SCALE SQ SCH ×2 (16:03→20:00)
--- NOTE | 2016-11-01 17:23 | RADRPT ---
EXAM DATE/TIME: 11/01/2016 16:35 [facility] COMPARISON: No previous studies available for comparison. INDICATIONS : Altered mental status. MEDICAL HISTORY : Hypertension. Diabetes mellitus type 2. Gastroesophageal reflux disease. SURGICAL HISTORY : Hysterectomy. Lumbar laminectomy. ENCOUNTER: Initial ACUITY: 2 day PAIN SCORE: 0/10 LOCATION: Head Please note a normal MRA of the brain does not entirely exclude the possibility of a small aneurysm, nor the possibility of distal intracranial vessel disease. TECHNIQUE: 3D time of flight MRA was performed. Source images, multiplanar STS MIP, and 3D volume MIP reconstru ctions were reviewed. FINDINGS: Moderate atherosclerotic and cranial vascular disease is present. Focal stenoses are seen throughout most of the first and second order branches evident. There is no major branch vessel occlusion. CONCLUSION: Significant intracranial atherosclerotic vascular disease. Dameon Simmons MD FACR on November 01, 2016 at 17:16 Board Certified Radiologist. This report was verified electronically.
[2016-11-01] MEDS ORDERED: GADODIAMIDE PF 287 MG/ML 20 ML VIAL (for RAD MRI) IV ONE (17:36)
--- NOTE | 2016-11-01 17:39 | RADRPT ---
EXAM DATE/TIME: 11/01/2016 16:35 [facility] COMPARISON: No previous studies available for comparison. INDICATIONS : Altered mental status. MEDICAL HISTORY : Diabetes mellitus type 2. Gastroesophageal reflux disease. Hypertension. SURGICAL HISTORY : Hysterectomy. Lumbar laminectomy. ENCOUNTER: Initial ACUITY: 2 day PAIN SCORE: 0/10 LOCATION: Head TECHNIQUE: Multiplanar, multisequence MRI of the brain was performed without contrast. FINDINGS: Patchy areas of restricted diffusion are seen high in the right centrum semiovale and i n the corpus callosum. There is mild central and cortical atrophy with dilatation of ventricular and sulcal spaces. There is no parenchymal hemorrhage identified. The patient has a very prominent empty sella. CONCLUSION: Focal areas of restricted diffusion as described above. Location is unusual for an e mbolic process. However, this can occur with isolated embolus to the pericallosal artery. The secon d area of ischemia is in the distal anterior cerebral artery branches, both on the same side of the h emisphere. Dameon Simmons MD FACR on November 01, 2016 at 17:16 Board Certified Radiologist. This report was verified electronically.
--- NOTE | 2016-11-01 17:50 | EC ---
Study Study Date:11/01/2016 STUDY CONCLUSIONS SUMMARY - Left ventricle: The cavity size was normal. Wall thickness was increased in a pattern of mild LVH. Systolic function was normal. The estimated ejection fraction was 70%. Wall motion was normal; there were no regional wall motion abnormalities. - Pulmonary arteries: Systolic pressure was mildly increased. PA peak pressure: 43mm Hg (S). If LV function is below 40, please consider prescribing an ACEI or ARB or document rationale for non-use. PROCEDURE DATA STUDY STATUS: Elective. Procedure: Transthoracic echocardiography. Image quality was good. Scanning was performed from the parasternal, apical, and subcostal acoustic windows. Study completion: The patient tolerated the procedure well. Transthoracic echocardiography. M-mode, complete 2D, complete spectral Doppler, and color Doppler. Height: Height: 63in. Weight: Weight: 208.6lb. Body mass index: BMI: 37kg/m^2. Body surface area: BSA: 1.97m^2. Patient status: Inpatient. CARDIAC ANATOMY LEFT VENTRICLE: The cavity size was normal. Wall thickness was increased in a pattern of mild LVH. Systolic function was normal. The estimated ejection fraction was 70%. Wall motion was normal; there were no regional wall motion abnormalities. AORTIC VALVE: Trileaflet; mildly thickened, mildly calcified leaflets. Doppler: Transvalvular velocity was within the normal range. There was no stenosis. No regurgitation. Valve area: 2.23cm^2(VTI). Indexed valve area: 1.13cm^2/m^2 (VTI). Valve area: 1.91cm^2 (Vmax). Indexed valve area: 0.97cm^2/m^2 (Vmax). Mean gradient: 4mm Hg (S). AORTA: Aortic root: The aortic root was normal in size. MITRAL VALVE: Structurally normal valve. Doppler: Transvalvular velocity was within the normal range. There was no evidence for stenosis. Trace regurgitation. LEFT ATRIUM: The atrium was normal in size. RIGHT VENTRICLE: The cavity size was normal. Wall thickness was normal. PULMONIC VALVE: Doppler: Transvalvular velocity was within the normal range. There was no evidence for stenosis. No regurgitation. TRICUSPID VALVE: Structurally normal valve. Doppler: Transvalvular velocity was within the normal range. Trace regurgitation. PULMONARY ARTERY: The main pulmonary artery was normal-sized. Systolic pressure was mildly increased. RIGHT ATRIUM: The atrium was normal in size. PERICARDIUM: There was no pericardial effusion. SYSTEMIC VEINS: Inferior vena cava: The vessel was normal in size. Patient weight: 208.6lb _Ejection fraction:_ 65-75% _Fractional shortening:_ 32% up to 5Kg 5-11.5Kg 11.6-22.9Kg 23-45Kg 45-57Kg Aortic Root 7-13 <17 13-22 17-27 17-27 LA diam 6-13 <23 24-38 33-47 37-40 RVID 10-17 7-15 7-15 7-18 8-17 LVIDd 12-22 <32 24-38 33-47 37-40 LVPW 2-4 3-6 5-7 6-8 7-8 IVS 2-4 3-6 5-7 6-8 7-8 BASIC MEASUREMENTS ADULT NORMAL Left ventricle LV internal dimension, ED, chordal *38.8 mm 43-52 level, PLAX LV internal dimension, ES, chordal 24.7 mm 23-38 level, PLAX Fractional shortening, chordal level, 36 % >29 PLAX LV posterior wall thickness, ED 13 mm IVS/LVPW ratio, ED 1 <1.3 Ventricular septum Septal thickness, ED 13 mm Aortic valve Leaflet separation 19 mm 15-26 Aorta Root diameter, ED 24 mm Left atrium Anterior-posterior dimension 30 mm Anterior-posterior dimension index 1.52 cm/m^2 <2.2 BASIC MEASUREMENTS ADULT NORMAL Aortic valve Leaflet separation 19 mm 15-26 DOPPLER MEASUREMENTS ADULT NORMAL Main pulmonary artery Pressure, S *43 mm Hg =30 Aortic valve Peak velocity, S 134 cm/s Mean velocity, S 90.5 cm/s VTI, S 19.6 cm Mean gradient, S 4 mm Hg Valve area, VTI 2.23 cm^2 Valve area index, VTI 1.13 cm^2/m^2 Valve area, Vmax 1.91 cm^2 Valve area index, Vmax 0.97 cm^2/m^2 Mitral valve Peak E-wave velocity 64.7 cm/s Peak A-wave velocity 99.2 cm/s Deceleration time 173 ms 150-230 Peak E/A ratio 0.7 Tricuspid valve Regurgitant peak velocity 233 cm/s Peak RV-RA gradient, S 22 mm Hg Maximal regurgitant velocity 233 cm/s Systemic veins Estimated CVP 10 mm Hg Right ventricle RV pressure, S *45 mm Hg <30 Pulmonic valve Peak velocity, S 78.2 cm/s LEGEND: Mean values are shown as u=mean value. Asterisk (*) lopez values outside specified normal range. Bandar Elizabeth [id number]
--- NOTE | 2016-11-01 17:55 | RADRPT ---
EXAM DATE/TIME: 11/01/2016 16:35 [facility] COMPARISON: No previous studies available for comparison. INDICATIONS : Unable to bear weight post laminectomy 2 days ago. CONTRAST: 20 cc Omniscan (gadodiamide) IV MEDICAL HISTORY : Hypertension. Diabetes mellitus type 2. SURGICAL HISTORY : Hysterectomy. Lumbar laminectomy. ENCOUNTER: Initial ACUITY: 2 day PAIN SCORE: 3/10 LOCATION: L- spine TECHNIQUE: Multiplanar multisequence MRI of the lumbar spine was performed with and without contr ast. FINDINGS: Postsurgical changes are seen at the L4-5 level. There is no evidence for a hematoma. There are postsurgical enhancements in the operative site. Very small fluid collection is seen in the subcutaneous tissues, nonspecific. There are minimal degenerative changes at the L3-4 and L1-2 levels. CONCLUSION: Postoperative changes as described above. I do not see an etiology for the patient's inability to bear weight. Dameon Simmons MD FACR on November 01, 2016 at 17:43 Board Certified Radiologist. This report was verified electronically.
[2016-11-01] MEDS: MAGNESIUM SULFATE 1 GM PREMIX 100 ML IV SCH ×3 (17:56→20:56)
[2016-11-01] MEDS: ARTIFICIAL TEARS OPTH SOLN 15 ML BTL EACH EYE SCH (17:56)
[2016-11-01] MEDS: ACETAMINOPHEN 325 MG TAB PO PRN (17:57)
[2016-11-01] MEDS ORDERED: ASPIRIN 81 MG CHEW TAB CHEW ONE (18:15)
--- NOTE | 2016-11-01 19:10 | EKG ---
Date Performed: 11/01/2016 Time Performed: 10:48:58 PTAGE: 71 years EKG: Sinus rhythm WITH OCCASIONAL VENTRICULAR PREMATURE COMPLEXES BORDERLINE LEFT AXIS DEVIATION LEFT VENTRICULAR HYPE RTROPHY AND ST-T CHANGE ABNORMAL ECG PREVIOUS TRACING : 10/30/2016 13.51 Compared to prior tracing no significant change DOCTOR: Bandar Alfaro Interpretating Date/Time 11/01/2016 19:08:45
[2016-11-01] MEDS: PRAVASTATIN SOD 40 MG TAB PO SCH (20:54)
[2016-11-01] MEDS: VANCOMYCIN INJ 1,500 MG in SODIUM CHLORID 0.9% 500 ML INJ 500 ML IV SCH (20:54)
[2016-11-01] MEDS: DOCUSATE SODIUM 100 MG CAP PO SCH (20:54)
[2016-11-01] MEDS: SODIUM CHLORIDE 0.9% FLUSH 10 ML FLUSH IV FLUSH SCH (20:54)
[2016-11-01] MEDS: LATANOPROST 0.005% OPHT SOLN 2.5 ML BTL EACH EYE SCH (20:55)
[2016-11-01] MEDS ORDERED: SODIUM CHLORIDE 0.9% FLUSH 10 ML FLUSH IV FLUSH SCH (21:00)
--- NOTE | 2016-11-01 22:22 | PD.ORT.PN ---
Subjective Subjective Remarks POD#2 L4-5 Kofi decompressive laminectomy fo spinal stenosis. Pre-op patient had L>R LE weakness with foot drop;post-op patient and family stated that she had excellent recovery of LE weakness Patient today developed L UE/LE weakness;we told her and family to go to ED for evaluation Reviewed MRI Lumbar spine: satisfactory decompression,no evidence of post op hematoma MRI Brain c/w R sided CVA Since patient has been in hospital,good improvement of L UE motor,speech and mental status alertness;patient still has L LE weakness Objective Vitals Vital Signs Date Time Temp Pulse Resp B/P Pulse Ox O2 Delivery O2 Flow Rate FiO2 11/01/16 18:00 108 11/01/16 18:00 102.8 108 18 192/86 98 11/01/16 17:37 102.8 111 18 181/78 96 Nasal Cannula 2 11/01/16 16:08 111 18 179/78 94 Nasal Cannula 2 11/01/16 15:41 96 21 11/01/16 15:32 108 18 193/81 96 Nasal Cannula 2 11/01/16 15:22 97 Nasal Cannula 2.00 11/01/16 14:40 101 18 199/84 96 Nasal Cannula 2 11/01/16 13:30 101 18 194/81 96 Nasal Cannula 2 11/01/16 12:01 101 16 183/79 95 Nasal Cannula 2 11/01/16 10:58 18 94 Room Air 11/01/16 10:10 94 20 11/01/16 09:59 98.7 85 18 232/106 91 Result Diagram: 11/01/16 1045 11/01/16 1045 Other Results Laboratory Tests Test 11/01/16 10:45 Prothrombin Time 14.4 SEC (9.8-11.6) Prothromb Time International 1.3 RATIO Ratio Imaging Last [address] 11/01/16 1041 Signed Impressions: Service Date/Time: Tuesday, November 01, 2016 11:29 - CONCLUSION: 1. No acute intracranial abnormality. 2. Pineal cyst. Zhen Arboleda MD Chest X-Ray 11/01/16 1041 Signed Impressions: Service Date/Time: Tuesday, November 01, 2016 12:04 - CONCLUSION: Cardiomegaly with patchy airspace disease as described above. Considerations include both congestive failure an a inflammatory process. Dameon Simmons MD FACR Head Magnetic Resonance Angiography 11/01/16 0000 Signed Impressions: Service Date/Time: Tuesday, November 01, 2016 16:35 - CONCLUSION: Significant intracranial atherosclerotic vascular disease. Dameon Simmons MD FACR Brain MRI 11/01/16 0000 Signed Impressions: Service Date/Time: Tuesday, November 01, 2016 16:35 - CONCLUSION: Focal areas of restricted diffusion as described above. Location is unusual for an embolic process. However, this can occur with isolated embolus to the pericallosal artery. The second area of ischemia is in the distal anterior cerebral artery branches, both on the same side of the hemisphere. Dameon Simmons MD FACR Objective Remarks Lumbar spine wound looks good;no swelling Excellent L UE strength,L LE 0/5 Assessment & Plan Assessment and Plan Spoke at length with patient,2 daughters,son,and granddaughter.Explained to them her clinical condition;answered multiple questions Continue medical management Dhaval Tucker MD November 01, 2016 22:22
[2016-11-01 22:33] LABS: HEMOGLOBIN A1a 2.2 %; HEMOGLOBIN A1b 3.3 %; HEMOGLOBIN Ao 75.9 %
[2016-11-02] VITALS (15 sets, daily range): BP systolic 160–190; BP diastolic 69–83; PULSE 82–103; RESP 19–24; TEMP 98.2–99; O2SAT 93–100
[2016-11-02] MEDS: SODIUM CHLOR 0.9% 1000 ML INJ 1,000 ML IV SCH ×2 (01:26→13:21)
[2016-11-02] MEDS: LABETALOL HCL 100 MG/20 ML VIAL IV PUSH PRN ×2 (03:04→13:19)
[2016-11-02] MEDS: CHLORHEXIDINE GLUCONATE 2 % 1 PACK (2 CLOTHS) TOP SCH (03:48)
[2016-11-02] MEDS: INSULIN NovoLIN REGULAR SUPPLEMENTAL SCALE SQ SCH ×3 (03:52→07:50)
--- NOTE | 2016-11-02 05:10 | RADRPT ---
EXAM DATE/TIME: 11/02/2016 04:04 [facility] COMPARISON: CHEST SINGLE AP, November 01, 2016, 12:04. INDICATIONS : Shortness of breath, possible pulmonary disease. MEDICAL HISTORY : Hypertension. SURGICAL HISTORY : Hysterectomy. ENCOUNTER: Subsequent ACUITY: 2 days PAIN SCORE: Non-responsive. LOCATION: Bilateral chest FINDINGS: Breathing motion artifact degrades the current study. Heart small enlarged. Lungs are grossly clear. No effusions. Degenerative spine. CONCLUSION: Limited by breathing motion artifact. Clear lungs. Flash Kinsey Jr., MD on November 02, 2016 at 5:08 Board Certified Radiologist. This report was verified electronically.
[2016-11-02] MEDS: RESP: ALBUTEROL 2.5 MG/IPRATROPIUM 0.5 MG NEB (SCH) INH ×4 (05:12→22:19)
--- NOTE | 2016-11-02 05:28 | MG ---
cc: CARLI SMILEY M.D. Lab No: [id number] Date: 11/01/2016 Age: 71 Sex: F Race: DATE OF 1945 AGE [age] years old EEG NUMBER [id number] REFERRING PHYSICIAN MD Rylan ROOM E57 NOTE With photic stimulation only. Awake, drowsy, asleep study. INDICATIONS CT shows pineal cyst, bilateral decompression hemilaminectomy, bilateral facetectomy with decompression of the nerve roots. This is probably not on CT of the head. CT of the head showed only pineal cyst. She is apparently more lethargic since surgery and not able to get out of bed with a history of hypertension, weakness, confusion, hyperlipidemia. CURRENT MEDICINES 1. Zosyn. 2. Vancomycin. 3. Hydralazine. DESCRIPTION OF RECORD The patient does exhibit some slowing predominately 5 Hz theta frequency. Some muscle artifact. Apparently she is moving about, talking. Photic stimulation shows minimal driving response. EKG artifactual, difficult to interpret. No epileptic activity. IMPRESSION Background slowing, predominately of theta frequency without any epileptiform features. May be due to diffuse encephalopathic process of various etiology but no epileptiform features in this one recording. Clinical correlation. MD SHAN Galvez/MICHELLE /8:51 PM /5:13 AM
[2016-11-02] MEDS: CEFEPIME INJ 2,000 MG in SODIUM CHLORIDE 0.9% INJ 100 ML IV SCH ×3 (06:01→22:24)
[2016-11-02] MEDS: DOCUSATE SODIUM 100 MG CAP PO SCH ×2 (07:53→20:48)
[2016-11-02] MEDS: PANTOPRAZOLE SOD 40 MG DELAYED RELEASE TAB PO SCH (07:53)
[2016-11-02] MEDS: ASPIRIN 325 MG TAB PO SCH (07:54)
[2016-11-02 08:30] LABS: AUTOMATED NEUTROPHIL # 7.4 TH/MM3 (1.8-7.7); BASOPHIL % 0.2 % (0.0-2.0); EOSINOPHIL % 0.2 % (0.0-4.0); HEMATOCRIT 32.2 % (35.0-46.0); HEMO FLAGS DIFF FINAL; LYMPHOCYTE # 1.2 TH/MM3 (1.0-4.8); MEAN CELL VOLUME 86.5 FL (80.0-100.0); MEAN CORPUSCULAR HEMOGLOBIN 29.6 PG (27.0-34.0); MEAN CORPUSCULAR HGB CONC 34.2 % (32.0-36.0); MONO % 8.4 % (0.0-8.0); NEUT % 78.2 % (16.0-70.0); PLATELET COUNT 181 TH/MM3 (150-450); RED BLOOD COUNT 3.73 MIL/MM3 (4.00-5.30); RED CELL DISTRIBUTION WIDTH 14.5 % (11.6-17.2); WHITE BLOOD COUNT 9.5 TH/MM3 (4.0-11.0)
[2016-11-02 08:31] LABS: APTT (PATIENT) 35.3 SEC (24.3-30.1); INTERNATIONAL NORMALIZED RATIO 1.2 RATIO; PROTHROMBIN TIME - PATIENT 12.8 SEC (9.8-11.6)
[2016-11-02] MEDS: ARTIFICIAL TEARS OPTH SOLN 15 ML BTL EACH EYE SCH ×3 (08:46→17:24)
[2016-11-02] MEDS ORDERED: PANTOPRAZOLE SODIUM 40 MG VIAL IV SCH (09:00)
[2016-11-02] MEDS ORDERED: ATENOLOL 50 MG TAB PO SCH (09:00)
[2016-11-02 09:12] LABS: ALKALINE PHOSPHATASE 60 U/L (45-117); ALT (GPT) 15 U/L (10-53); ANION GAP 9 MEQ/L (5-15); AST (GOT) 15 U/L (15-37); BICARBONATE 29.9 MEQ/L (21.0-32.0); BLOOD UREA NITROGEN 7 MG/DL (7-18); CHLORIDE 96 MEQ/L (98-107); GLOMERULAR FILTRATION RATE 105 ML/MIN (>89); HDL CHOLESTEROL 42.8 MG/DL (40.0-60.0); LDL CHOLESTEROL 83 MG/DL (0-99); MAGNESIUM 1.9 MG/DL (1.5-2.5); SODIUM (NA) 135 MEQ/L (136-145); TOTAL BILIRUBIN ADULT 0.5 MG/DL (0.2-1.0)
[2016-11-02 09:16] LABS: POTASSIUM 2.9 MEQ/L (3.5-5.1)
[2016-11-02] MEDS: VANCOMYCIN INJ 1,500 MG in SODIUM CHLORID 0.9% 500 ML INJ 500 ML IV SCH ×2 (09:49→20:50)
[2016-11-02] MEDS: SODIUM CHLORIDE 0.9% FLUSH 10 ML FLUSH IV FLUSH SCH ×3 (09:49→20:51)
[2016-11-02] MEDS ORDERED: SODIUM PHOSPHATE INJ 30 MMOL in SODIUM CHLOR 0.9% 250 ML INJ 250 ML IV ONE (10:00)
[2016-11-02] MEDS: POTASSIUM CHLORIDE 20 MEQ CONTROLLED RELEASE TAB PO SCH ×2 (10:36→20:48)
[2016-11-02] MEDS: TOLTERODINE TARTRATE 2 MG CAP LA PO SCH (10:37)
--- NOTE | 2016-11-02 11:49 | RADRPT ---
EXAM DATE/TIME: 11/02/2016 10:56 [facility] COMPARISON: No previous studies available for comparison. INDICATIONS : Weakness. MEDICAL HISTORY : Hypertension. Hypercholesterolemia. Diverticulitis. Abdominal pain. GERD. Arthritis. Gait problems. D iabetes. Anticoagulant therapy, Xarelto. SURGICAL HISTORY : Hysterectomy. Cardiac cath. Laminectomy. ENCOUNTER: Initial ACUITY: 1 day PAIN SCORE: 1/10 LOCATION: Bilateral neck PEAK SYSTOLIC VELOCITIES (cm/sec): ICA/CCA RATIO: Right: 0.7 Left: 0.9 ICA: Right: 65 Left: 83 CCA: Right: 90 Left: 87 ECA: Right: 116 Left: 84 VERTEBRAL: Right: 60 antegrade Left: 62 antegrade Elevated flow velocities and ICA/CCA ratios have been found to correlate with increased degrees of vessel stenosis, calculated as percentage of diameter relative to a normal segment of distal ICA/CCA FINDINGS: RIGHT CAROTID: No significant stenosis is visualized. The waveforms are within normal limits. LEFT CAROTID: No significant stenosis is visualized. The waveforms are within normal limits. VERTEBRAL ARTERIES: Antegrade flow is seen in both vertebral arteries. MISCELLANEOUS: None. CONCLUSION: 1. Calcified plaque noted in the carotid arteries bilaterally especially around the carotid bifurcati ons but without hemodynamically significant stenosis. Vertebral artery flow antegrade bilaterally. Kurt Bolanos MD on November 02, 2016 at 11:44 Board Certified Radiologist. This report was verified electronically.
--- NOTE | 2016-11-02 13:20 | PD.ORT.PN ---
Subjective Subjective Remarks pt has no orthopedic complaints, still unable to move left leg two grandchildren in room with her Objective Vitals Vital Signs Date Time Temp Pulse Resp B/P Pulse Ox O2 Delivery O2 Flow Rate FiO2 11/02/16 12:00 98.6 85 22 190/83 100 11/02/16 12:00 85 11/02/16 10:00 82 11/02/16 08:00 98.2 84 20 175/69 100 11/02/16 08:00 84 11/02/16 07:17 99 Nasal Cannula 2.00 11/02/16 06:00 93 11/02/16 04:00 92 11/02/16 04:00 98.8 92 19 185/79 93 11/02/16 02:00 90 11/02/16 00:00 98.4 87 19 160/71 100 11/02/16 00:00 87 11/01/16 22:00 85 11/01/16 21:38 100 Nasal Cannula 2.00 11/01/16 20:00 93 11/01/16 20:00 98.4 93 23 146/61 94 11/01/16 18:00 108 11/01/16 18:00 102.8 108 18 192/86 98 11/01/16 17:37 102.8 111 18 181/78 96 Nasal Cannula 2 11/01/16 16:08 111 18 179/78 94 Nasal Cannula 2 11/01/16 15:41 96 21 11/01/16 15:32 108 18 193/81 96 Nasal Cannula 2 11/01/16 15:22 97 Nasal Cannula 2.00 11/01/16 14:40 101 18 199/84 96 Nasal Cannula 2 11/01/16 13:30 101 18 194/81 96 Nasal Cannula 2 I/O 11/01/16 11/01/16 11/01/16 11/02/16 11/02/16 11/02/16 07:00 15:00 23:00 07:00 15:00 23:00 Intake Total 1119 ml 579 ml Output Total 400 ml 640 ml Balance 719 ml -61 ml Intake Oral 0 ml 0 ml IV Total 1119 ml 579 ml Output Urine Total 400 ml 640 ml Stool Total 0 ml 0 ml Result Diagram: 11/02/16 0755 11/02/16 0755 Other Results Laboratory Tests Test 11/02/16 07:55 Prothrombin Time 12.8 SEC (9.8-11.6) Prothromb Time International 1.2 RATIO Ratio Imaging Last [address] 11/01/16 1041 Signed Impressions: Service Date/Time: Tuesday, November 01, 2016 11:29 - CONCLUSION: 1. No acute intracranial abnormality. 2. Pineal cyst. Zhen Arboleda MD Chest X-Ray 11/01/16 1041 Signed Impressions: Service Date/Time: Tuesday, November 01, 2016 12:04 - CONCLUSION: Cardiomegaly with patchy airspace disease as described above. Considerations include both congestive failure an a inflammatory process. Dameon Simmons MD FACR Head Magnetic Resonance Angiography 11/01/16 0000 Signed Impressions: Service Date/Time: Tuesday, November 01, 2016 16:35 - CONCLUSION: Significant intracranial atherosclerotic vascular disease. Dameon Simmons MD FACR Brain MRI 11/01/16 0000 Signed Impressions: Service Date/Time: Tuesday, November 01, 2016 16:35 - CONCLUSION: Focal areas of restricted diffusion as described above. Location is unusual for an embolic process. However, this can occur with isolated embolus to the pericallosal artery. The second area of ischemia is in the distal anterior cerebral artery branches, both on the same side of the hemisphere. Dameon Simmons MD FACR Objective Remarks Lumbar spine wound healing well, dressing in place Good motor strength to RLE and bilateral upper extremities L LE 0/5, does have sensation to touch though Assessment & Plan Assessment and Plan POD # 3 s/p L4-5 laminectomy dry dressing daily await neurology consult aspirin now, may resume xarelto on sunday from orthopedic point of view in regards to back sx Continue medical management Cammy Castillo November 02, 2016 13:20
--- NOTE | 2016-11-02 13:28 | HHI.CCPN ---
Subjective Remarks/Hospital Course 71-year-old AAF. Date of admission 11/01/2016. Past medical history includes recent (10/30/16) L4/L5 bilateral decompressive hemilaminectomy, bilateral foraminotomy, bilateral partial facet colectomy with decompression the nerve roots secondary to L4/L5 moderate severe spinal stenosis, left greater than right lumbar radiculitis with left greater than right lower extremity weakness and left foot drop. 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 She presents to [facility] with the following history. According to family,, patient has had weakness in her left leg and has been previously able to stand on her right leg. However since surgery, noticed increasing weakness in left and now in right lower extremity. She is able to walk once last night and was brought in by family for evaluation. Last received pain medication at 1 AM. There was concern that she is unable to stand/bear weight on the right foot . Upon presentation, she had a blood pressure 230 systolic. For this she was given [address] head revealed no acute intracranial findings. Chest x-ray shows no signs of focal pneumonia. He has a urinary tract infection and a rapid cell count of 13,000. Troponin was elevated 0.15. EKG revealed ST elevation in V1 and V2 with ST depression in leads a/aVF, V3 through V6, left axis deviation with sinus rhythm. There was vague complaints of chest pain radiating down her back towards her coccyx. This is not pressure. This does not radiate to her neck or down her shoulder. It is not sharp. On examination, she does have subjective weakness to her left lower extremity. She has range of motion her right lower extremity but unable to stand. Dr. Dhaval Tucker was notified by ED physician. He does not believe this is infectious etiology. He states that the patient might not recover function in her left lower extremity. On examination, the surgical site is clean dry and intact. Without erythema or drainage. There are no meningeal signs on examination. Subjective 11/02: Noted CVA/right side. Discussed with family at bedside yesterday and today. Patient more awake and alert and functional today. Currently afebrile. Objective Vital Signs Date Time Temp Pulse Resp B/P Pulse Ox O2 Delivery O2 Flow Rate FiO2 11/02/16 12:00 98.6 85 22 190/83 100 11/02/16 07:17 Nasal Cannula 2.00 11/01/16 15:41 21 Intake and Output 11/01/16 11/01/16 11/02/16 08:00 16:00 00:00 Intake Total 1119 ml Output Total 400 ml Balance 719 ml Result Diagram: 11/02/16 0755 11/02/16 0755 Other Results Microbiology Date/Time Procedure Status Source Growth 11/01/16 11:05 Urine Culture - Preliminary Resulted Urine Catheterized Urine NO GROWTH IN 24 HOURS. 11/01/16 10:45 Aerobic Blood Culture - Preliminary Resulted Blood Peripheral NO GROWTH IN 1 DAY 11/01/16 10:45 Anaerobic Blood Culture - Preliminary Resulted Blood Peripheral NO GROWTH IN 1 DAY Imaging Last Impressions Chest X-Ray 11/02/16 0000 Signed Impressions: Service Date/Time: October 04:04 - CONCLUSION: Limited by breathing motion artifact. Clear lungs. Flash Kinsey Jr., MD Carotid Artery Ultrasound 11/02/16 0000 Signed Impressions: Service Date/Time: October 10:56 - CONCLUSION: 1. Calcified plaque noted in the carotid arteries bilaterally especially around the carotid bifurcations but without hemodynamically significant stenosis. Vertebral artery flow antegrade bilaterally. Kurt Bolanos MD Head CT 11/01/16 1041 Signed Impressions: Service Date/Time: Tuesday, November 01, 2016 11:29 - CONCLUSION: 1. No acute intracranial abnormality. 2. Pineal cyst. Zhen Arboleda MD Head Magnetic Resonance Angiography 11/01/16 0000 Signed Impressions: Service Date/Time: Tuesday, November 01, 2016 16:35 - CONCLUSION: Significant intracranial atherosclerotic vascular disease. Dameon Simmons MD FACR Brain MRI 11/01/16 0000 Signed Impressions: Service Date/Time: Tuesday, November 01, 2016 16:35 - CONCLUSION: Focal areas of restricted diffusion as described above. Location is unusual for an embolic process. However, this can occur with isolated embolus to the pericallosal artery. The second area of ischemia is in the distal anterior cerebral artery branches, both on the same side of the hemisphere. Dameon Simmons MD FACR Objective Remarks GENERAL: 71-year-old critically ill female currently resting in bed in no acute distress SKIN: Warm and dry. No rash. Lumbar postsurgical incision site clean dry and intact without erythema or drainage HEAD: Atraumatic. Normocephalic. EYES: Pupils equal and round about 3 mm bilaterally and reactive. No scleral icterus. No injection or drainage. ENT: No nasal bleeding or discharge. Mucous membranes pink and moist. NECK: Trachea midline. No JVD. No meningismus signs CARDIOVASCULAR: Regular rate and rhythm. S1, S2. No S4 without murmur RESPIRATORY: Clear to auscultation. Breath sounds equal bilaterally. GASTROINTESTINAL: Abdomen soft, non-tender, nondistended. Hypoactive bowel sounds are apparent MUSCULOSKELETAL: Extremities with trace bilateral lower extremity nonpitting edema. No obvious deformities. NEURO: Cranial nerves II through XII grossly intact. Strength is 5 out of 5 in the bilateral upper extremity. 3 out of 5 in the left lower extremity. 4 out of 5 in the right lower extremity. Normal sensation to light touch and pinprick. 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 EEG 11/01 revealed no epileptiform activity MRI brain revealed CVA and right KAMLESH distribution along with right centrum semiovale ovale and corpus callosum MRA brain revealed significant efforts chronic disease without focal stenosis Carotid Dopplers revealed plaquing at the carotid bulb without hemodynamic limiting flow MRI L-spine revealed no surgical findings with no hematoma/abscess noted Holding aspirin 81 mg daily light of recent surgery Neurochecks Acetaminophen for fever Continue with latanoprost 0.005-1 drop each eye at night Neurologist been consulted/routine. Okay for aspirin 325 daily per orthopedics Okay to resume Xarelto on Sunday per orthopedics. CV: Hypertensive crisis Elevated troponin On atenolol 50 mg by mouth daily at home Are trending down currently 0.21. Currently chest pain-free Echocardiogram revealed EF of 70% She sees Dr. Shae Patel as an outpatient Resp: Nasal cannula to maintain saturations greater than equal to 92% Incentive spirometry while awake GI: Gastroesophageal reflux disease History diverticulosis ADA diet Protonix for GI prophylaxis. On Nexium 40 mg daily at home Colace/as needed Senokot for bowel regimen : Overflow incontinence Continue treatment Ditropan 5 mg by mouth 3 times a day UA with elevated leukoesterase Endo: Diabetes mellitus Home medication Lantus 15 units subcutaneous twice a day with sliding scale insulin along with metformin 850 3 times a day and glipizide 10 mg twice a day currently on hold Sliding scale insulin/low with Accu-Cheks every 4 hours to maintain euglycemia TSH within normal limits Renal: Creatinine currently within normal limits. Recheck BMP in a.m. Heme: Normocytic anemia Monitor CBC daily. Follow trends ID: Given vancomycin/Zosyn the ED. We'll place on cefepime/vancomycin for recent lumbar/neurosurgery per Becker recommendations Blood cultures 2, urine pending MSK: POD # 3 s/p L4-5 laminectomy Osteoarthritis PT /OT evaluate and treat Followed by Dr. Tucker FEN: Hypokalemia Receiving 40 mEq by mouth twice a day today recheck in a.m. Replace electrolytes as clinically indicated. Access - Utilize peripheral IV. Central line if indicated Prophylaxis - GI - Protonix - DVT - SCD/holding pharmacological prophylaxis in light of recent lumbar surgery Critical Care: The total care time was 35 minutes. Time to perform other separately billable procedures was not included in the critical care time. Patient is stable from a critical care medicine standpoint. We will assign care to hospitalist in a.m. 11/03 García Fagan MD November 02, 2016 13:28
[2016-11-02] MEDS ORDERED: INSULIN NovoLIN REGULAR SUPPLEMENTAL SCALE SQ SCH (16:00)
[2016-11-02] MEDS ORDERED: SODIUM CHLORIDE 0.9% FLUSH 10 ML FLUSH IV FLUSH PRN (20:45)
[2016-11-02] MEDS ORDERED: GLUCAGON 1 MG/ML VIAL IM/SQ PRN (20:45)
[2016-11-02] MEDS ORDERED: DEXTROSE 50% IN WATER 50 ML VIAL(D50) IV PUSH PRN (20:45)
[2016-11-02] MEDS: ATENOLOL 50 MG TAB PO SCH (20:48)
[2016-11-02] MEDS: PRAVASTATIN SOD 40 MG TAB PO SCH (20:48)
[2016-11-02] MEDS: LATANOPROST 0.005% OPHT SOLN 2.5 ML BTL EACH EYE SCH (20:50)
--- NOTE | 2016-11-02 20:52 | MB ---
cc: TY FARIAS M.D. DATE OF CONSULTATION: 11/02/2016 REASON FOR CONSULTATION: Stroke. HISTORY OF PRESENT ILLNESS: Ms. Contreras is a very pleasant 71-year-old female who has a history of lumbar stenosis. She underwent lumbar spine surgery last Sunday and was discharged home. Apparently she became hypertensive and developed some symptoms of confusion and left leg weakness. PAST MEDICAL HISTORY: 1. She has a history of lumbar spine spondylosis and stenosis. 2. History of left leg DVT for which she was on Xarelto which was on hold for the surgery. 3. History of glaucoma. 4. Hypertension. 5. Diverticulosis. 6. Gastroesophageal reflux. 7. Diabetes. 8. Left foot drop from spinal stenosis. 9. Partial hysterectomy. MEDICATIONS: Her current medications are: 1. Lipitor 20 milligrams daily. 2. Apresoline 25 milligrams q. 8 hours. 3. Atenolol 50 milligrams twice a day. 4. Protonix 40 milligrams daily. 5. Detrol. 6. Aspirin 325 milligrams daily. NEUROLOGICAL EXAMINATION: VITAL SIGNS: Blood pressure is 186/79, pulse 93 and she is in sinus rhythm, respiratory rate is 24, temperature 99 degrees. HIGHER CORTICAL FUNCTIONS: Higher cortical functions are normal. CRANIAL NERVES: Cranial nerves intact. MOTOR: On motor exam, she has normal strength in both upper extremities. She is weak in the left leg rated about 2/5 in the iliopsoas, quadriceps, hamstrings, tibialis anterior and she has normal strength in the right leg. SENSORY: Sensory exam is diminished in the left leg diffusely. REFLEXES: Reflexes are 1+ symmetric for the biceps, triceps, brachioradialis, 2+ patella symmetric and absent ankle reflexes. Babinski is equivocal bilaterally. IMAGING STUDIES: CT scan of the brain shows no acute change. MRI of the brain on diffusion images indicates areas of restricted diffusion in the high right centrum semiovale adjacent to the corpus callosum as well as in the corpus callosum. No hemorrhage is seen. They both are in the distribution of the pericallosal artery as well as the anterior cerebral artery. MR angiogram of the brain reveals significant atherosclerosis throughout the cerebral hemispheres. Carotid ultrasound reveals calcified plaque noted but no significant stenosis. Echocardiogram showed an ejection fraction of 70%. Left ventricular function normal with no regional wall motion abnormalities. The aortic valve is normal. Aortic root was normal. Mitral valve was within normal limits. A trace regurgitation. Left atrial size is normal. Right ventricle was normal. Pulmonic valve normal. Tricuspid valve was normal with trace regurgitation. Pulmonary artery systolic pressure mildly decreased. The right atrium is normal in size. Pericardium is normal. LABORATORY DATA: The white count is 9500, hemoglobin 11, hematocrit 32.2% platelet count is 181,000. Sodium is 135, potassium 2.9, chloride 96, the BUN is 7, creatinine 0.67, glucose 177, AST 15, ALT 15. LDL cholesterol 83, cholesterol 143, HDL 42.8. IMPRESSION: The patient has evidence of stroke in the right anterior cerebral artery territory and the pericallosal artery. RECOMMENDATIONS: 1. Continue the aspirin. 2. We will get a CT angiogram of the vessels in the neck to further evaluate the carotid arteries as well. 3. Will consult physical therapy as well. MD RENETTA Jarrell/ELIANA /8:29 PM /8:39 PM
[2016-11-02] MEDS: INSULIN ASPART SUPPLEMENTAL SCALE SQ SCH (21:00)
[2016-11-02] MEDS: ISOSORBIDE DINITRATE 10 MG TAB PO SCH (22:24)
[2016-11-02] MEDS: hydrALAZINE HCL 25 MG TAB PO SCH (22:24)
[2016-11-03] VITALS (14 sets, daily range): BP systolic 154–178; BP diastolic 68–79; PULSE 86–98; RESP 17–31; TEMP 97.8–101; O2SAT 95–100
[2016-11-03] MEDS: RESP: ALBUTEROL 2.5 MG/IPRATROPIUM 0.5 MG NEB (SCH) INH ×4 (03:21→21:02)
[2016-11-03] MEDS: CHLORHEXIDINE GLUCONATE 2 % 1 PACK (2 CLOTHS) TOP SCH (04:00)
[2016-11-03] MEDS: CEFEPIME INJ 2,000 MG in SODIUM CHLORIDE 0.9% INJ 100 ML IV SCH ×3 (05:52→23:32)
[2016-11-03] MEDS: ISOSORBIDE DINITRATE 10 MG TAB PO SCH ×3 (05:52→22:44)
[2016-11-03] MEDS: hydrALAZINE HCL 25 MG TAB PO SCH ×3 (05:52→22:12)
[2016-11-03] MEDS: INSULIN ASPART SUPPLEMENTAL SCALE SQ SCH ×4 (06:54→22:45)
--- NOTE | 2016-11-03 07:46 | PD.ORT.PN ---
Subjective Subjective Remarks pt slightly agitated this morning, does have feeling in left leg but no motor strength \ daughter Jolene in room Objective Vitals Vital Signs Date Time Temp Pulse Resp B/P Pulse Ox O2 Delivery O2 Flow Rate FiO2 11/03/16 07:18 97 21 11/03/16 06:00 91 11/03/16 04:00 96 11/03/16 04:00 97.8 96 31 166/72 100 11/03/16 02:00 93 11/03/16 00:00 99.0 97 23 154/68 99 11/03/16 00:00 97 11/02/16 23:00 102 11/02/16 22:21 100 High Flow Nasal Cannula 2.00 11/02/16 22:00 97 11/02/16 20:00 98.9 103 21 182/79 99 11/02/16 20:00 103 11/02/16 18:00 85 11/02/16 16:00 99.0 93 24 186/79 100 11/02/16 16:00 93 11/02/16 14:00 90 11/02/16 13:16 22 11/02/16 12:00 98.6 85 22 190/83 100 11/02/16 12:00 85 11/02/16 10:00 82 11/02/16 08:00 98.2 84 20 175/69 100 11/02/16 08:00 84 I/O 11/02/16 11/02/16 11/02/16 11/03/16 11/03/16 11/03/16 07:00 15:00 23:00 07:00 15:00 23:00 Intake Total 579 ml 2104 ml 1328 ml 885 ml Output Total 640 ml 800 ml 600 ml 600 ml Balance -61 ml 1304 ml 728 ml 285 ml Intake Oral 0 ml 640 ml 480 ml 240 ml IV Total 579 ml 1464 ml 848 ml 645 ml Output Urine Total 640 ml 800 ml 600 ml 600 ml Stool Total 0 ml 0 ml 0 ml Result Diagram: 11/02/16 0755 11/02/16 0755 Other Results Laboratory Tests Test 11/02/16 07:55 Prothrombin Time 12.8 SEC (9.8-11.6) Prothromb Time International 1.2 RATIO Ratio Imaging Last [address] 5/10/17 1041 Signed Impressions: Service Date/Time: Tuesday, November 01, 2016 11:29 - CONCLUSION: 1. No acute intracranial abnormality. 2. Pineal cyst. Zhen Arboleda MD Chest X-Ray 11/01/161040 Signed Impressions: Service Date/Time: Tuesday, November 01, 2016 12:04 - CONCLUSION: Cardiomegaly with patchy airspace disease as described above. Considerations include both congestive failure an a inflammatory process. Dameon Simmons MD FACR Head Magnetic Resonance Angiography 11/01/16 0000 Signed Impressions: Service Date/Time: Tuesday, November 01, 2016 16:35 - CONCLUSION: Significant intracranial atherosclerotic vascular disease. Dameon Simmons MD FACR Brain MRI 11/01/16 0000 Signed Impressions: Service Date/Time: Tuesday, November 01, 2016 16:35 - CONCLUSION: Focal areas of restricted diffusion as described above. Location is unusual for an embolic process. However, this can occur with isolated embolus to the pericallosal artery. The second area of ischemia is in the distal anterior cerebral artery branches, both on the same side of the hemisphere. Dameon Simmons MD FACR Objective Remarks Lumbar spine wound healing well, dressing in place Satisfactory motor strength to RLE and bilateral upper extremities L LE 0/5, does have sensation to touch Assessment & Plan Assessment and Plan POD # 4 s/p L4-5 laminectomy patient has evidence of stroke in right cerebral artery dry dressing daily blood pressure still running very high, they are holding off on therapy until in better control aspirin now, may resume xarelto on sunday from orthopedic point of view in regards to back sx Continue medical management Cammy Castillo November 03, 2016 07:46
[2016-11-03] MEDS: ATORVASTATIN 20 MG TAB PO SCH (08:19)
[2016-11-03] MEDS: PANTOPRAZOLE SOD 40 MG DELAYED RELEASE TAB PO SCH (08:19)
[2016-11-03 08:29] LABS: BASOPHIL # 0.1 TH/MM3 (0-0.2); BASOPHIL % 0.8 % (0.0-2.0); EOSINOPHIL % 0.3 % (0.0-4.0); HEMATOCRIT 31.5 % (35.0-46.0); HEMO FLAGS DIFF FINAL; LYMPH % 11.1 % (9.0-44.0); LYMPHOCYTE # 1.2 TH/MM3 (1.0-4.8); MEAN CELL VOLUME 87.9 FL (80.0-100.0); MEAN CORPUSCULAR HEMOGLOBIN 28.2 PG (27.0-34.0); MEAN CORPUSCULAR HGB CONC 32.1 % (32.0-36.0); MONO % 7.5 % (0.0-8.0); NEUT % 80.3 % (16.0-70.0); PLATELET COUNT 201 TH/MM3 (150-450); RED BLOOD COUNT 3.58 MIL/MM3 (4.00-5.30); RED CELL DISTRIBUTION WIDTH 14.6 % (11.6-17.2); WHITE BLOOD COUNT 11.2 TH/MM3 (4.0-11.0)
[2016-11-03] MEDS ORDERED: PHARMACY ORDERED LAB ONE (08:45)
[2016-11-03] MEDS: SODIUM CHLORIDE 0.9% FLUSH 10 ML FLUSH IV FLUSH SCH ×4 (09:00→21:00)
[2016-11-03] MEDS: ASPIRIN 325 MG TAB PO SCH (09:00)
[2016-11-03] MEDS: ATENOLOL 50 MG TAB PO SCH ×2 (09:00→22:13)
[2016-11-03] MEDS: ARTIFICIAL TEARS OPTH SOLN 15 ML BTL EACH EYE SCH ×3 (09:00→18:00)
[2016-11-03] MEDS: TOLTERODINE TARTRATE 2 MG CAP LA PO SCH (09:00)
[2016-11-03] MEDS: DOCUSATE SODIUM 100 MG CAP PO SCH ×2 (09:00→22:12)
[2016-11-03 09:05] LABS: ALKALINE PHOSPHATASE 67 U/L (45-117); ALT (GPT) 16 U/L (10-53); ANION GAP 10 MEQ/L (5-15); AST (GOT) 19 U/L (15-37); BICARBONATE 26.9 MEQ/L (21.0-32.0); BLOOD UREA NITROGEN 8 MG/DL (7-18); CHLORIDE 96 MEQ/L (98-107); GLOMERULAR FILTRATION RATE 117 ML/MIN (>89); MAGNESIUM 1.8 MG/DL (1.5-2.5); POTASSIUM 3.6 MEQ/L (3.5-5.1); SODIUM (NA) 133 MEQ/L (136-145); TOTAL BILIRUBIN ADULT 0.7 MG/DL (0.2-1.0)
[2016-11-03] MEDS: VANCOMYCIN INJ 1,500 MG in SODIUM CHLORID 0.9% 500 ML INJ 500 ML IV SCH (10:33)
--- NOTE | 2016-11-03 10:34 | HHI.PR ---
Subjective Remarks in no acute distress. somewhat lethargic although the daughter says that she was awake during the night. denies pain. Objective Vitals Vital Signs Date Time Temp Pulse Resp B/P Pulse Ox O2 Delivery O2 Flow Rate FiO2 11/03/16 08:00 91 11/03/16 08:00 98.6 89 20 157/73 98 11/03/16 07:18 97 21 11/03/16 07:00 91 11/03/16 06:00 91 11/03/16 04:00 96 11/03/16 04:00 97.8 96 31 166/72 100 11/03/16 02:00 93 11/03/16 00:00 99.0 97 23 154/68 99 11/03/16 00:00 97 11/02/16 23:00 102 11/02/16 22:21 100 High Flow Nasal Cannula 2.00 11/02/16 22:00 97 11/02/16 20:00 98.9 103 21 182/79 99 11/02/16 20:00 103 11/02/16 18:00 85 11/02/16 16:00 99.0 93 24 186/79 100 11/02/16 16:00 93 11/02/16 14:00 90 11/02/16 13:16 22 11/02/16 12:00 98.6 85 22 190/83 100 11/02/16 12:00 85 I/O 11/02/16 11/02/16 11/02/16 11/03/16 11/03/16 11/03/16 07:00 15:00 23:00 07:00 15:00 23:00 Intake Total 579 ml 2104 ml 1328 ml 885 ml Output Total 640 ml 800 ml 600 ml 600 ml Balance -61 ml 1304 ml 728 ml 285 ml Intake Oral 0 ml 640 ml 480 ml 240 ml IV Total 579 ml 1464 ml 848 ml 645 ml Output Urine Total 640 ml 800 ml 600 ml 600 ml Stool Total 0 ml 0 ml 0 ml Result Diagram: 11/03/16 0748 11/03/16 0748 Imaging Last Impressions Chest X-Ray 11/02/16 0000 Signed Impressions: Service Date/Time: October 04:04 - CONCLUSION: Limited by breathing motion artifact. Clear lungs. Flash Kinsey Jr., MD Carotid Artery Ultrasound 11/02/16 0000 Signed Impressions: Service Date/Time: October 10:56 - CONCLUSION: 1. Calcified plaque noted in the carotid arteries bilaterally especially around the carotid bifurcations but without hemodynamically significant stenosis. Vertebral artery flow antegrade bilaterally. Kurt Bolanos MD Head CT 11/01/16 1041 Signed Impressions: Service Date/Time: Tuesday, November 01, 2016 11:29 - CONCLUSION: 1. No acute intracranial abnormality. 2. Pineal cyst. Zhen Arboleda MD Head Magnetic Resonance Angiography 11/01/16 0000 Signed Impressions: Service Date/Time: Tuesday, November 01, 2016 16:35 - CONCLUSION: Significant intracranial atherosclerotic vascular disease. Dameon Simmons MD FACR Brain MRI 11/01/16 0000 Signed Impressions: Service Date/Time: Tuesday, November 01, 2016 16:35 - CONCLUSION: Focal areas of restricted diffusion as described above. Location is unusual for an embolic process. However, this can occur with isolated embolus to the pericallosal artery. The second area of ischemia is in the distal anterior cerebral artery branches, both on the same side of the hemisphere. Dameon Simmons MD FACR Objective Remarks GENERAL: This is a well-nourished, well-developed patient, in no apparent distress. CARDIOVASCULAR: Regular rate and regular rhythm without murmurs, gallops, or rubs. RESPIRATORY: Clear to auscultation. Breath sounds equal bilaterally. No wheezes , rales, or rhonchi. GASTROINTESTINAL: Abdomen soft, non-tender, nondistended. Normal, active bowel sounds MUSCULOSKELETAL: Extremities without clubbing, cyanosis, or edema. NEURO: mildly lethargic and easily arousable- left sided weakness Medications and IVs Current Medications Hydralazine HCl 10 mg 10 mg ONCE ONCE IV PUSH Last administered on 11/01/16 11:07; Start 11/01/16 at 11:00; Stop 11/01/16 at 11:01; Status DC Vancomycin HCl 1000 mg/Sodium Chloride 250 ml @ 250 mls/hr ONCE ONCE IV Last administered on 11/01/16 13:29; Start 11/01/16 at 12:30; Stop 11/01/16 at 13:29 ; Status DC Piperacillin Sod/ Tazobactam Sod 50 ml @ 100 mls/hr ONCE ONCE IV Last administered on 11/01/16 12:53; Start 11/01/16 at 12:30; Stop 11/01/16 at 12:59 ; Status DC Sodium Chloride 1,000 ml @ 999 mls/hr BOLUS ONCE IV Last administered on 11/01 12:53; Start 11/01/16 at 12:30; Stop 11/01/16 at 13:30; Status DC Sodium Chloride 1,000 ml @ 999 mls/hr BOLUS ONCE IV Last administered on 11/01 13:30; Start 11/01/16 at 12:45; Stop 11/01/16 at 13:45; Status DC Pharmacy Profile Note 0 ml @ 0 mls/hr UNSCH OTHER ; Start 11/01/16 at 13:30 Cefepime HCl/ Sodium Chloride (Maxipime Inj/NS Inj) 100 ml @ 200 mls/hr Q8H IV Last administered on 11/03/16 05:52; Start 11/01/16 at 14:00 Atenolol (Tenormin) 50 mg DAILY PO Last administered on 11/02/16 07:54; Start 11/02/16 at 09:00; Stop 11/02/16 at 15:51; Status DC Latanoprost (Xalatan 0.005% Opt Soln) 1 drop HS EACH EYE Last administered on 11/02/16 20:50; Start 11/01/16 at 21:00 Pantoprazole Sodium (Protonix) 40 mg DAILY PO Last administered on 11/03/16 08 :19; Start 11/02/16 at 09:00 Tolterodine Tartrate (Detrol La) 2 mg DAILY PO Last administered on 11/02/16 10:37; Start 11/02/16 at 09:00 Dextrose (D50w (Vial) Inj) 25 ml UNSCH PRN IV PUSH HYPOGLYCEMIA-SEE COMMENTS; Start 11/01/16 at 13:30; Stop 11/02/16 at 22:22; Status DC Glucagon (Glucagon Inj) 1 mg UNSCH PRN OTHER HYPOGLYCEMIA-SEE COMMENTS; Start 11/01/16 at 13:30; Stop 11/02/16 at 22:22; Status DC Insulin Human Regular (NovoLIN R SUPPLEMENTAL SCALE) 1 Q4HR SQ Last administered on 11/02/16 07:50; Start 11/01/16 at 16:00; Stop 11/02/16 at 13:38 ; Status DC Labetalol HCl (Trandate Inj) 10 mg Q1HR PRN IV PUSH SBP>180, DBP>100, HR>65 Last administered on 11/02/16 13:19; Start 11/01/16 at 14:00 Hydralazine HCl (Apresoline Inj) 10 mg Q1HR PRN IV PUSH SBP>180, DBP>95 Last administered on 11/01/16 15:08; Start 11/01/16 at 14:00 Nitroglycerin 2 inch 2 inch Q6HR PRN TOPICAL SBP>180, DBP>95; Start 11/01/16 at 14:00 Sodium Chloride (NS 1000 ml Inj) 1,000 ml @ 84 mls/hr [id number] IV Last administered on 11/02/16 13:21; Start 11/01/16 at 13:31 Sodium Chloride (NS Flush) 2 ml UNSCH PRN IV FLUSH FLUSH AFTER USING IV ACCESS ; Start 11/01/16 at 13:45 Sodium Chloride (NS Flush) 2 ml BID IV FLUSH Last administered on 11/02/16 20: 49; Start 11/01/16 at 21:00 Acetaminophen (Tylenol) 650 mg Q6H PRN PO FEVER >100F Last administered on 11/01 17:57; Start 11/01/16 at 14:00 Acetaminophen/ Hydrocodone Bitart ([place] 5-325 Mg) 1 tab Q4H PRN PO PAIN SCALE 1 TO 5; Start 11/01/16 at 14:00 Fentanyl Citrate (fentaNYL INJ) 50 mcg Q1H PRN IV PUSH Pain scale 6-10 &/or sedation Last administered on 11/03/16 06:05; Start 11/01/16 at 14:00 Pantoprazole Sodium (Protonix Inj) 40 mg DAILY IV ; Start 11/02/16 at 09:00; Stop 11/02/16 at 09:00; Status DC Artificial Tears (Tears Naturale Opth Soln) 1 drop TID EACH EYE Last administered on 11/02/16 13:00; Start 11/01/16 at 18:00 Ondansetron HCl (Zofran Inj) 4 mg Q6H PRN IV NAUSEA OR VOMITING; Start at 14:00 Docusate Sodium (Colace) 100 mg BID PO Last administered on 11/02/16 20:48; Start 11/01/16 at 21:00 Sennosides (Senokot) 17.2 mg Q12HR PRN PO CONSTIPATION; Start 11/01/16 at 21:00 Albuterol/ Ipratropium (Duoneb Neb) 1 ampule Q6HR NEB INH Last administered on 11/03/16 08:30; Start 11/01/16 at 16:00 Albuterol Sulfate (Albuterol Neb) 2.5 mg Q2HR NEB PRN INH SOB/WHEEZING; Start 11/01/16 at 14:00 Miscellaneous Information 1 Q361D XX ; Start 11/01/16 at 13:45 Chlorhexidine Gluconate (Chlorhexidine 2% Cloth) 3 pack Taper DAILY@04 TOP Last administered on 11/03/16 04:00; Start 11/02/16 at 04:00; Stop 10/29/17 at 03:59 Chlorhexidine Gluconate 3 pack 3 pack UNSCH PRN TOP HYGIENIC CARE; Start at 13:45 Vancomycin HCl/ Sodium Chloride (Vancomycin Inj/ NS 500 ml Inj) 515 ml @ 250 mls/hr Q12H IV Last administered on 11/02/16 20:50; Start 11/01/16 at 21:00 Miscellaneous Information SPECIFIC LAB TO BE DRAWN:VANCOMYCIN TROUGH DATE TO... ONCE ONCE .XX ; Start 11/03/16 at 08:45; Stop 11/03/16 at 08:46; Status DC Magnesium Sulfate/ Dextrose 100 ml @ 100 mls/hr Q1H IV Last administered on 20:56; Start 11/01/16 at 16:00; Stop 11/01/16 at 18:59; Status DC Potassium Chloride 100 ml @ 50 mls/hr Q2H PRN IV For Potassium 2.8 - 3.2 mEq/L ; Start 11/01/16 at 15:30 Potassium Chloride (KCl 20 Meq Premix Inj) 100 ml @ 50 mls/hr Q2H PRN IV For Potassium 2.8 - 3.2 mEq/L Last administered on 11/02/16 09:50; Start 11/01/16 at 15:30 Potassium Bicarb/ Potassium Chloride 50 meq 50 meq UNSCH PRN PO For Potassium 3.3 - 3.5 mEq/L; Start 11/01/16 at 15:30 Potassium Chloride 100 ml @ 25 mls/hr UNSCH PRN IV For Potassium 3.3 - 3.5 mEq /L; Start 11/01/16 at 15:30 Potassium Chloride 100 ml @ 50 mls/hr Q2H PRN IV For Potassium 3.3 - 3.5 mEq/L ; Start 11/01/16 at 15:30 Magnesium Sulfate/ Sodium Chloride (Magnesium Sulfate Inj/NS Inj) 100 ml @ 50 mls/hr UNSCH PRN IV For Magnesium 0.9 - 1.1 mg/dL; Start 11/01/16 at 15:30 Magnesium Oxide 800 mg 800 mg UNSCH PRN PO For Magnesium 1.2 - 1.6 mg/dL; Start 11/01/16 at 15:30 Magnesium Sulfate/ Sodium Chloride (Magnesium Sulfate Inj/NS Inj) 100 ml @ 50 mls/hr UNSCH PRN IV For Magnesium 1.2 - 1.6 mg/dL; Start 11/01/16 at 15:30 Potassium Phosphate 2000 mg 2,000 mg Q4H PRN PO For Phosphorus < 2.5 mg/dL; Start 11/01/16 at 15:30 Sodium Phosphate/ Sodium Chloride (Sodium Phosphate Inj/NS 250 ml Inj) 250 ml @ 42 mls/hr UNSCH PRN IV For Phosphorus < 2.5 mg/dL; Start 11/01/16 at 15:30 Potassium Phosphate (K-Phos) 2,000 mg UNSCH PRN PO/TUBE SEE LABEL COMMENTS; Start 11/01/16 at 15:30 Gadodiamide (Omniscan Pf Inj) 20 ml STK-MED ONCE IV Last administered on t 17:36; Start 11/01/16 at 17:36; Stop 11/01/16 at 17:37; Status DC Sodium Chloride (NS Flush) 2 ml BID IV FLUSH ; Start 11/01/16 at 21:00; Stop 04/10 at 21:00; Status DC Sodium Chloride (NS Flush) 2 ml UNSCH PRN IV FLUSH FLUSH AFTER USING IV ACCESS ; Start 11/01/16 at 18:15; Stop 11/01/16 at 18:15; Status DC Aspirin (Aspirin) 325 mg DAILY PO Last administered on 11/02/16 07:54; Start 11/02/16 at 09:00 Pravastatin Sodium (Pravachol) 40 mg HS PO Last administered on 11/02/16 20:48 ; Start 11/01/16 at 21:00 Aspirin (Aspirin Chew) 162 mg ONCE ONCE CHEW Last administered on 11/01/16 18 :24; Start 11/01/16 at 18:15; Stop 11/01/16 at 18:16; Status DC Potassium Chloride 40 meq 40 meq Q12HR PO Last administered on 11/02/16 20:48 ; Start 11/02/16 at 10:15; Stop 11/02/16 at 21:01; Status DC Sodium Phosphate/ Sodium Chloride (Sodium Phosphate Inj/NS 250 ml Inj) 260 ml @ 43.333 mls/ hr ONCE ONCE IV Last administered on 11/02/16 12:17; Start 05/11 at 10:00; Stop 11/02/16 at 15:59; Status DC Insulin Human Regular (NovoLIN R SUPPLEMENTAL SCALE) 1 ACHS SLIDING SCALE SQ Last administered on 11/02/16 15:36; Start 11/02/16 at 16:00; Stop 11/02/16 at 22:22; Status DC Atenolol (Tenormin) 50 mg BID PO Last administered on 11/02/16 20:48; Start at 21:00 Atorvastatin Calcium (Lipitor) 20 mg DAILY PO Last administered on 11/03/16 08 :19; Start 11/03/16 at 09:00 Hydralazine HCl (Apresoline) 25 mg Q8HR PO Last administered on 11/03/16 05:52 ; Start 11/02/16 at 22:00 Isosorbide Dinitrate (Isordil) 10 mg Q8HR PO Last administered on 11/03/16 05: 52; Start 11/02/16 at 22:00 Sodium Chloride (NS Flush) 2 ml BID IV FLUSH Last administered on 11/02/16 20: 51; Start 11/02/16 at 21:00 Sodium Chloride (NS Flush) 2 ml UNSCH PRN IV FLUSH FLUSH AFTER USING IV ACCESS ; Start 11/02/16 at 20:45 Insulin Aspart (NovoLOG SUPPLEMENTAL SCALE) 1 ACHS SLIDING SCALE SQ Last administered on 11/03/16t 06:54; Start 11/02/16 at 21:00 Dextrose (D50w (Vial) Inj) 25 ml UNSCH PRN IV PUSH HYPOGLYCEMIA-SEE COMMENTS; Start 11/02/16 at 20:45 Glucagon (Glucagon Inj) 1 mg UNSCH PRN IM/SQ HYPOGLYCEMIA-SEE COMMENTS; Start 11/02/16 at 20:45 A/P Assessment and Plan 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 EEG 11/01 revealed no epileptiform activity MRI brain revealed CVA and right KAMLESH distribution along with right centrum semiovale ovale and corpus callosum MRA brain revealed significant efforts chronic disease without focal stenosis Carotid Dopplers revealed plaquing at the carotid bulb without hemodynamic limiting flow MRI L-spine revealed no surgical findings with no hematoma/abscess noted continue aspirin and statin Neurochecks Okay for aspirin 325 daily per orthopedics Okay to resume Xarelto on Sunday per orthopedics. neurology consult appreciated CTA head and neck today- continue with rehab efforts; PT/OT /ST Hypertensive crisis- BP trend overall improving. Elevated troponin On atenolol,hydralazine and Isordil continue to monitor BP and adjust the regimen as needed. troponin trending down currently 0.21. Currently chest pain-free Echocardiogram revealed EF of 70% She sees Dr. Shae Patel as an outpatient Gastroesophageal reflux disease History diverticulosis ADA diet Protonix for GI prophylaxis. On Nexium 40 mg daily at home Colace/as needed Senokot for bowel regimen Overflow incontinence Continue treatment Ditropan 5 mg by mouth 3 times a day Diabetes mellitus Home medication Lantus 15 units subcutaneous twice a day with sliding scale insulin along with metformin 850 3 times a day and glipizide 10 mg twice a day currently on hold Sliding scale insulin/low with Accu-Cheks every 4 hours to maintain euglycemia TSH within normal limits Normocytic anemia Given vancomycin/Zosyn the ED. started on cefepime/vancomycin for recent lumbar/neurosurgery per Becker recommendations follow the blood cultures and if remain negative will deescalate the antibiotics soon. POD # 3 s/p L4-5 laminectomy Osteoarthritis PT /OT evaluate and treat Followed by Dr. Tucker Hypokalemia-replaced. Prophylaxis - GI - Protonix - DVT - SCD/holding pharmacological prophylaxis in light of recent lumbar surgery transfer to telemetry today if ok with neurology. Tommie Szymanski MD November 03, 2016 10:34
--- NOTE | 2016-11-03 10:53 | PD.CONS ---
[facility] Service Rehabilitation Medicine Consult Requested By Reason for Consult Comprehensive rehabilitation evaluation. Primary Care Physician Unknown History of Present Illness Harriet Contreras is a 71 year old right hand dominant female admitted to [facility] 11/01/16 with increasing right LE weakness. SBP 230. Patient had undergone L4-L5 bilateral decompressive hemilaminectomy, bilateral foraminotomy and bilateral facetectomy with nerve root decompression on 10/30/16. Pre-operatively, she was noted to have moderate to severe spinal stenosis and left greater than right radiculitis/weakness and left footdrop. Head CT showed no acute intracranial changes. Brain MRI 11/01/16 showed focal area of restricted diffusion in the high right centrum semiovale and corpus callosum. Carotid ultrasound showed no significant stenosis. CT angio is pending. Review of Systems Constitutional: COMPLAINS OF: Fatigue Eyes: DENIES: Diplopia Ears, nose, mouth, throat: DENIES: Throat pain Respiratory: DENIES: Shortness of breath Cardiovascular: DENIES: Chest pain Gastrointestinal: COMPLAINS OF: Constipation Genitourinary: COMPLAINS OF: Urinary incontinence Integumentary: DENIES: Pruritus Hematologic/lymphatic: DENIES: Bruising Immunologic/allergic: DENIES: Urticaria Neurologic: COMPLAINS OF: Localized weakness, Paresthesias, Speech Problems, DENIES: Headache Psychiatric: DENIES: Confusion Past Family Social History Allergies: Coded Allergies: Darvocet-N 100 (Verified Allergy, Severe, RASH, 11/01/16) Past Medical History Glaucoma History of DVT HTN Diverticulosis GERD DM Spinal stenosis Overflow urinary incontinence Past Surgical History Hysterectomy Current Medications Current Medications Medications (Trade) Dose Ordered Sig/Taisha Route Start Time Stop Time Status Last Admin Pharmacy Profile Note 0 ml @ 0 mls/hr UNSCH OTHER 11/01/16 13:30 (Maxipime Inj/NS Inj) 100 ml @ 200 mls/hr Q8H IV 11/01/16 14:00 11/03/16 05:52 (Xalatan 0.005% Opt Soln) 1 drop HS EACH EYE 11/01/16 21:00 11/02/16 20:50 (Protonix) 40 mg DAILY PO 11/02/16 09:00 11/03/16 08:19 (Detrol La) 2 mg DAILY PO 11/02/16 09:00 11/02/16 10:37 (Trandate Inj) 10 mg Q1HR PRN IV PUSH 11/01/16 14:00 11/02/16 13:19 (Apresoline Inj) 10 mg Q1HR PRN IV PUSH 11/01/16 14:00 11/01/16 15:08 Nitroglycerin 2 inch 2 inch Q6HR PRN TOPICAL 11/01/16 14:00 (NS 1000 ml Inj) 1,000 ml @ 84 mls/hr [id number] IV 11/01/16 13:31 11/02/16 13:21 (NS Flush) 2 ml UNSCH PRN IV FLUSH 11/01/16 13:45 (NS Flush) 2 ml BID IV FLUSH 11/01/16 21:00 11/02/16 20:49 (Tylenol) 650 mg Q6H PRN PO 11/01/16 14:00 11/01/16 17:57 ([place] 5-325 Mg) 1 tab Q4H PRN PO 11/01/16 14:00 (fentaNYL INJ) 50 mcg Q1H PRN IV PUSH 11/01/16 14:00 11/03/16 06:05 (Tears Naturale Opth Soln) 1 drop TID EACH EYE 11/01/16 18:00 11/02/16 13:00 (Zofran Inj) 4 mg Q6H PRN IV 11/01/16 14:00 (Colace) 100 mg BID PO 11/01/16 21:00 11/02/16 20:48 (Senokot) 17.2 mg Q12HR PRN PO 11/01/16 21:00 Miscellaneous Information 1 Q361D XX 11/01/16 13:45 (Chlorhexidine 2% Cloth) 3 pack Taper DAILY@04 TOP 11/02/16 04:00 10/29/17 03:59 11/03/16 04:00 Chlorhexidine Gluconate 3 pack 3 pack UNSCH PRN TOP 11/01/16 13:45 Vancomycin HCl 1500 mg/Sodium Chloride 515 ml @ 250 mls/hr Q12H IV 11/01/16 21:00 11/03/16 10:33 Potassium Chloride 100 ml @ 50 mls/hr Q2H PRN IV 11/01/16 15:30 (KCl 20 Meq Premix Inj) 100 ml @ 50 mls/hr Q2H PRN IV 11/01/16 15:30 11/02/16 09:50 Potassium Bicarb/ Potassium Chloride 50 meq 50 meq UNSCH PRN PO 11/01/16 15:30 Potassium Chloride 100 ml @ 25 mls/hr UNSCH PRN IV 11/01/16 15:30 Potassium Chloride 100 ml @ 50 mls/hr Q2H PRN IV 11/01/16 15:30 (Magnesium Sulfate Inj/NS Inj) 100 ml @ 50 mls/hr UNSCH PRN IV 11/01/16 15:30 Magnesium Oxide 800 mg 800 mg UNSCH PRN PO 11/01/16 15:30 (Magnesium Sulfate Inj/NS Inj) 100 ml @ 50 mls/hr UNSCH PRN IV 11/01/16 15:30 Potassium Phosphate 2000 mg 2,000 mg Q4H PRN PO 11/01/16 15:30 (Sodium Phosphate Inj/NS 250 ml Inj) 250 ml @ 42 mls/hr UNSCH PRN IV 11/01/16 15:30 (K-Phos) 2,000 mg UNSCH PRN PO/TUBE 11/01/16 15:30 (Aspirin) 325 mg DAILY PO 11/02/16 09:00 11/02/16 07:54 (Pravachol) 40 mg HS PO 11/01/16 21:00 11/02/16 20:48 (Tenormin) 50 mg BID PO 11/02/16 21:00 11/02/16 20:48 (Lipitor) 20 mg DAILY PO 11/03/16 09:00 11/03/16 08:19 (Apresoline) 25 mg Q8HR PO 11/02/16 22:00 11/03/16 05:52 (Isordil) 10 mg Q8HR PO 11/02/16 22:00 11/03/16 05:52 (NS Flush) 2 ml BID IV FLUSH 11/02/16 21:00 11/02/16 20:51 (NS Flush) 2 ml UNSCH PRN IV FLUSH 11/02/16 20:45 (D50w (Vial) Inj) 25 ml UNSCH PRN IV PUSH 11/02/16 20:45 (Glucagon Inj) 1 mg UNSCH PRN IM/SQ 11/02/16 20:45 Family History HTN Social History No tobacco or ETOH Lives in [place], [place] and daughter nearby and able to assist. Exam I&O / VS 11/02/16 11/02/16 11/03/16 15:00 23:00 07:00 Intake Total 2104 ml 1328 ml 885 ml Output Total 800 ml 600 ml 600 ml Balance 1304 ml 728 ml 285 ml Intake Oral 640 ml 480 ml 240 ml IV Total 1464 ml 848 ml 645 ml Output Urine Total 800 ml 600 ml 600 ml Stool Total 0 ml 0 ml Vital Signs Date Time Temp Pulse Resp B/P Pulse Ox O2 Delivery O2 Flow Rate FiO2 11/03/16 08:00 91 11/03/16 08:00 98.6 89 20 157/73 98 11/03/16 07:18 97 21 11/03/16 07:00 91 11/03/16 06:00 91 11/03/16 04:00 96 11/03/16 04:00 97.8 96 31 166/72 100 11/03/16 02:00 93 11/03/16 00:00 99.0 97 23 154/68 99 11/03/16 00:00 97 11/02/16 23:00 102 11/02/16 22:21 100 High Flow Nasal Cannula 2.00 11/02/16 22:00 97 11/02/16 20:00 98.9 103 21 182/79 99 11/02/16 20:00 103 11/02/16 18:00 85 11/02/16 16:00 99.0 93 24 186/79 100 11/02/16 16:00 93 11/02/16 14:00 90 11/02/16 13:16 22 11/02/16 12:00 98.6 85 22 190/83 100 11/02/16 12:00 85 General: No acute distress Respiratory: Lungs CTA, Non-labored respirations, BS equal Gastrointestinal: Positive Bowel Sounds, Non-Distended, Non-Tender Cardiovascular: Normal rate, Regular Rhythm Musculoskeletal: ROM (Within functional limits) Psychiatric: Cooperative, Appropriate mood & affect Orientation: oriented to Self, oriented to Place, oriented to Time, oriented to Situation Neurologic: Pupils (PERRLA), EOM (Intact), Speech (Dsyarthric but itelligible) Motor: Right Upper Extremity (5/5), Left Upper Extremity (4/5), Right Lower Extremity (5/5), Left Lower Extremity (3/5 except for ankle DF 1/5) Sensory Present but decreased in left LE DTRs: Normal (1+) Clonus: Negative Assessment and Plan Assessment 1. 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 PT evaluation in progress. Mobilize as medical and neurologically cleared. Neurology has cleared to mobilize after 11/03/16 at 1000 2. OT for ADL's and currently dependent 3. ST for swallow evaluation and cognition 4. Anticipate that patient will need ongoing inpatient rehabilitation at discharge given stroke combined with recent back surgery. Case management is addressing 5. Will follow while hospitalized and at discharge. Rehabilitation plan of care discussed with patient and daughter. Thanks you for this consult. Christine Bonilla MD November 03, 2016 10:53
[2016-11-03] MEDS: SODIUM CHLOR 0.9% 1000 ML INJ 1,000 ML IV SCH ×2 (13:11→16:58)
[2016-11-03] MEDS: hydrALAZINE HCL 20 MG/ML VIAL IV PUSH PRN (15:43)
--- NOTE | 2016-11-03 18:50 | HHI.PR ---
Review/Management Diagnosis right anterior cerebral artery/pericallosal artery stroke Plan follow up CTA brain and neck continue aspirin Diagnosis/Plan: Daily Summary right anterior cerebral artery/pericallosal artery stroke Subjective Subjective Comments No acute events reported Left le weakness without change Active Medications Current Medications Medications (Trade) Dose Ordered Sig/Taisha Route Start Time Stop Time Status Last Admin Pharmacy Profile Note 0 ml @ 0 mls/hr UNSCH OTHER 11/01/16 13:30 (Maxipime Inj/NS Inj) 100 ml @ 200 mls/hr Q8H IV 11/01/16 14:00 11/03/16 13:32 (Xalatan 0.005% Opth Soln) 1 drop HS EACH EYE 11/01/16 21:00 11/02/16 20:50 (Protonix) 40 mg DAILY PO 11/02/16 09:00 11/03/16 08:19 (Detrol La) 2 mg DAILY PO 11/02/16 09:00 11/03/16 09:00 (Trandate Inj) 10 mg Q1HR PRN IV PUSH 11/01/16 14:00 11/02/16 13:19 (Apresoline Inj) 10 mg Q1HR PRN IV PUSH 11/01/16 14:00 11/03/16 15:43 Nitroglycerin 2 inch 2 inch Q6HR PRN TOPICAL 11/01/16 14:00 (NS 1000 ml Inj) 1,000 ml @ 84 mls/hr [id number] IV 11/01/16 13:31 11/03/16 16:58 (NS Flush) 2 ml UNSCH PRN IV FLUSH 11/01/16 13:45 (NS Flush) 2 ml BID IV FLUSH 11/01/16 21:00 11/03/16 13:33 (Tylenol) 650 mg Q6H PRN PO 11/01/16 14:00 11/01/16 17:57 ([place] 5-325 Mg) 1 tab Q4H PRN PO 11/01/16 14:00 (fentaNYL INJ) 50 mcg Q1H PRN IV PUSH 11/01/16 14:00 11/03/16 17:24 (Tears Naturale Opth Soln) 1 drop TID EACH EYE 11/01/16 18:00 11/02/16 13:00 (Zofran Inj) 4 mg Q6H PRN IV 11/01/16 14:00 (Colace) 100 mg BID PO 11/01/16 21:00 11/03/16 09:00 (Senokot) 17.2 mg Q12HR PRN PO 11/01/16 21:00 Miscellaneous Information 1 Q361D XX 11/01/16 13:45 (Chlorhexidine 2% Cloth) 3 pack Taper DAILY@04 TOP 11/02/16 04:00 10/29/17 03:59 11/03/16 04:00 Chlorhexidine Gluconate 3 pack 3 pack UNSCH PRN TOP 11/01/16 13:45 Potassium Chloride 100 ml @ 50 mls/hr Q2H PRN IV 11/01/16 15:30 (KCl 20 Meq Premix Inj) 100 ml @ 50 mls/hr Q2H PRN IV 11/01/16 15:30 11/02/16 09:50 Potassium Bicarb/ Potassium Chloride 50 meq 50 meq UNSCH PRN PO 11/01/16 15:30 Potassium Chloride 100 ml @ 25 mls/hr UNSCH PRN IV 11/01/16 15:30 Potassium Chloride 100 ml @ 50 mls/hr Q2H PRN IV 11/01/16 15:30 (Magnesium Sulfate Inj/NS Inj) 100 ml @ 50 mls/hr UNSCH PRN IV 11/01/16 15:30 Magnesium Oxide 800 mg 800 mg UNSCH PRN PO 11/01/16 15:30 (Magnesium Sulfate Inj/NS Inj) 100 ml @ 50 mls/hr UNSCH PRN IV 11/01/16 15:30 Potassium Phosphate 2000 mg 2,000 mg Q4H PRN PO 11/01/16 15:30 (Sodium Phosphate Inj/NS 250 ml Inj) 250 ml @ 42 mls/hr UNSCH PRN IV 11/01/16 15:30 (K-Phos) 2,000 mg UNSCH PRN PO/TUBE 11/01/16 15:30 (Aspirin) 325 mg DAILY PO 11/02/16 09:00 11/03/16 09:00 (Pravachol) 40 mg HS PO 11/01/16 21:00 11/02/16 20:48 (Tenormin) 50 mg BID PO 11/02/16 21:00 11/03/16 09:00 (Lipitor) 20 mg DAILY PO 11/03/16 09:00 11/03/16 08:19 (Apresoline) 25 mg Q8HR PO 11/02/16 22:00 11/03/16 13:32 (Isordil) 10 mg Q8HR PO 11/02/16 22:00 11/03/16 13:33 (NS Flush) 2 ml BID IV FLUSH 11/02/16 21:00 11/03/16 09:00 (NS Flush) 2 ml UNSCH PRN IV FLUSH 11/02/16 20:45 (D50w (Vial) Inj) 25 ml UNSCH PRN IV PUSH 11/02/16 20:45 Glucagon 1 mg 1 mg UNSCH PRN IM/SQ 11/02/16 20:45 (Vancomycin Inj/ NS 500 ml Inj) 517.5 ml @ 250 mls/hr Q12H IV 11/03/16 21:00 Miscellaneous Information SPECIFIC LAB TO BE DRAWN:VANCO TROUGH DATE TO BE DR... ONCE ONCE .XX 11/05/16 08:45 11/05/16 08:46 Allergies Allergies Coded Allergies Darvocet-N 100 (Verified Allergy, Severe, RASH, 11/01/16) Exam I&O / VS 11/02/16 11/02/16 11/03/16 15:00 23:00 07:00 Intake Total 2104 ml 1328 ml 885 ml Output Total 800 ml 600 ml 600 ml Balance 1304 ml 728 ml 285 ml Intake Oral 640 ml 480 ml 240 ml IV Total 1464 ml 848 ml 645 ml Output Urine Total 800 ml 600 ml 600 ml Stool Total 0 ml 0 ml Vital Signs Date Time Temp Pulse Resp B/P Pulse Ox O2 Delivery O2 Flow Rate FiO2 11/03/16 18:00 96 11/03/16 16:00 98 11/03/16 16:00 98.5 95 22 178/79 11/03/16 14:00 86 11/03/16 12:00 98 11/03/16 12:00 99.0 88 24 168/72 11/03/16 10:00 96 11/03/16 08:00 91 11/03/16 08:00 98.6 89 20 157/73 98 11/03/16 07:18 97 21 11/03/16 07:00 91 11/03/16 06:00 91 11/03/16 04:00 96 11/03/16 04:00 97.8 96 31 166/72 100 11/03/16 02:00 93 11/03/16 00:00 99.0 97 23 154/68 99 11/03/16 00:00 97 11/02/16 23:00 102 11/02/16 22:21 100 High Flow Nasal Cannula 2.00 11/02/16 22:00 97 11/02/16 20:00 98.9 103 21 182/79 99 11/02/16 20:00 103 Respiratory: Lungs CTA, Non-labored respirations, BS equal Cardiology: Normal rate, Regular Rhythm Musculoskeletal: ROM (Within functional limits) Exam Comments lethargic cn intact motor LLE weakness without change Objective Radiology Results CTA neck and brain---pending Micro and Labs Laboratory Tests Test 11/03/16 11/03/16 07:48 10:29 White Blood Count 11.2 Red Blood Count 3.58 Hemoglobin 10.1 Hematocrit 31.5 Mean Corpuscular Volume 87.9 Mean Corpuscular Hemoglobin 28.2 Mean Corpuscular Hemoglobin 32.1 Concent Red Cell Distribution Width 14.6 Platelet Count 201 Mean Platelet Volume 9.1 Neutrophils (%) (Auto) 80.3 Lymphocytes (%) (Auto) 11.1 Monocytes (%) (Auto) 7.5 Eosinophils (%) (Auto) 0.3 Basophils (%) (Auto) 0.8 Neutrophils # (Auto) 9.0 Lymphocytes # (Auto) 1.2 Monocytes # (Auto) 0.8 Eosinophils # (Auto) 0.0 Basophils # (Auto) 0.1 CBC Comment DIFF FINAL Differential Comment Sodium Level 133 Potassium Level 3.6 Chloride Level 96 Carbon Dioxide Level 26.9 Anion Gap 10 Blood Urea Nitrogen 8 Creatinine 0.61 Estimat Glomerular Filtration 117 Rate Random Glucose 220 Calcium Level 8.8 Phosphorus Level 1.8 Magnesium Level 1.8 Total Bilirubin 0.7 Aspartate Amino Transf 19 (AST/SGOT) Alanine Aminotransferase 16 (ALT/SGPT) Alkaline Phosphatase 67 Total Protein 7.2 Albumin 2.4 Vancomycin Level Trough 10.1 Date/Time Procedure Status Source Growth 11/01/16 11:05 Urine Culture - Final Complete Urine Catheterized Urine NO GROWTH IN 48 HOURS. 11/01/16 10:45 Aerobic Blood Culture - Preliminary Resulted Blood Peripheral Staph Sp Coagulase Negative 11/01/16 10:45 Anaerobic Blood Culture - Preliminary Resulted Gram Positive Cocci Khoi Nath PhD November 03, 2016 18:50
[2016-11-03] MEDS: VANCOMYCIN INJ 1,750 MG in SODIUM CHLORID 0.9% 500 ML INJ 500 ML IV SCH (22:09)
[2016-11-03] MEDS: ACETAMINOPHEN 325 MG TAB PO PRN (22:12)
[2016-11-03] MEDS: PRAVASTATIN SOD 40 MG TAB PO SCH (22:12)
[2016-11-03] MEDS: LATANOPROST 0.005% OPHT SOLN 2.5 ML BTL EACH EYE SCH (22:44)
[2016-11-04] VITALS (9 sets, daily range): BP systolic 160–189; BP diastolic 70–89; PULSE 82–96; RESP 18–20; TEMP 97.3–99.5; O2SAT 93–98
[2016-11-04] MEDS: SODIUM CHLOR 0.9% 1000 ML INJ 1,000 ML IV SCH ×3 (01:06→19:33)
[2016-11-04] MEDS: CHLORHEXIDINE GLUCONATE 2 % 1 PACK (2 CLOTHS) TOP SCH (04:00)
[2016-11-04] MEDS: RESP: ALBUTEROL 2.5 MG/IPRATROPIUM 0.5 MG NEB (SCH) INH ×4 (05:00→19:52)
[2016-11-04] MEDS: ACETAMINOPHEN/HYDROcodone 325 MG/5 MG TAB PO PRN ×2 (05:11→10:03)
[2016-11-04] MEDS: ISOSORBIDE DINITRATE 10 MG TAB PO SCH ×3 (05:12→23:29)
[2016-11-04] MEDS: hydrALAZINE HCL 25 MG TAB PO SCH ×3 (05:12→23:29)
[2016-11-04] MEDS: CEFEPIME INJ 2,000 MG in SODIUM CHLORIDE 0.9% INJ 100 ML IV SCH ×3 (05:12→23:29)
[2016-11-04] MEDS: INSULIN ASPART SUPPLEMENTAL SCALE SQ SCH ×3 (06:44→16:46)
[2016-11-04] MEDS ORDERED: IOHEXOL 350 MG/ML 10 ML VIAL (for RAD DIAG) IV ONE (08:11)
[2016-11-04] MEDS: TOLTERODINE TARTRATE 2 MG CAP LA PO SCH (08:31)
[2016-11-04] MEDS: DOCUSATE SODIUM 100 MG CAP PO SCH ×2 (08:32→23:32)
[2016-11-04] MEDS: ASPIRIN 325 MG TAB PO SCH (08:32)
[2016-11-04] MEDS: ATENOLOL 50 MG TAB PO SCH ×2 (08:33→23:32)
[2016-11-04] MEDS: PANTOPRAZOLE SOD 40 MG DELAYED RELEASE TAB PO SCH (08:33)
[2016-11-04] MEDS: ATORVASTATIN 20 MG TAB PO SCH (08:33)
[2016-11-04] MEDS: VANCOMYCIN INJ 1,750 MG in SODIUM CHLORID 0.9% 500 ML INJ 500 ML IV SCH ×2 (08:35→23:28)
[2016-11-04] MEDS: SODIUM CHLORIDE 0.9% FLUSH 10 ML FLUSH IV FLUSH SCH ×3 (08:35→23:28)
[2016-11-04] MEDS: ARTIFICIAL TEARS OPTH SOLN 15 ML BTL EACH EYE SCH ×3 (09:00→16:47)
--- NOTE | 2016-11-04 09:09 | RADRPT ---
EXAM DATE/TIME: 11/04/2016 07:57 [facility] COMPARISON: MRA BRAIN W/O CONTRAST, November 01, 2016, 16:35. INDICATIONS : Altered mental status. IV CONTRAST: 80 cc Omnipaque 350 (iohexol) IV RADIATION DOSE: 18.27 CTDIvol (mGy) ; Reconstructed from previous dataset MEDICAL HISTORY : Hypertension. diabetes SURGICAL HISTORY : None. ENCOUNTER: Initial ACUITY: 1 day PAIN SCALE: 0/10 LOCATION: Bilateral head TECHNIQUE: Volumetric scanning was performed using a multi-row detector CT scanner. The data was post processed with a variety of visualization algorithms including full volume maximum intensity projection, multi -planar sliding thin slab reformation, curved planar reformation, and surface rendering techniques. Using automated exposure control and adjustment of the mA and/or kV according to patient size, radiat ion dose was kept as low as reasonably achievable to obtain optimal diagnostic quality images. FINDINGS: There is multifocal areas of moderate narrowing of the M1 and M2 segments of both middle cerebral art eries. Intraluminal irregularities and areas of narrowing are seen throughout the anterior cerebral a rteries and posterior cerebral arteries. Basilar artery intact. Dominant left vertebral artery. No an eurysm or vascular malformation. CONCLUSION: Extensive atherosclerotic changes with multifocal areas of narrowing throughout the middle, anterior and posterior cerebral arteries. Zhen Arboleda MD on November 04, 2016 at 9:02 Board Certified Radiologist. This report was verified electronically.
--- NOTE | 2016-11-04 09:13 | RADRPT ---
EXAM DATE/TIME: 11/04/2016 07:57 [facility] COMPARISON: No previous studies available for comparison. INDICATIONS : Altered mental status IV CONTRAST: 80 cc Omnipaque 350 (iohexol) IV ; Cumulative dose for multiple exams. RADIATION DOSE: 18.27 CTDIvol (mGy) ; Combined studies MEDICAL HISTORY : Hypertension. diabetes SURGICAL HISTORY : None. ENCOUNTER: Initial ACUITY: 1 day PAIN SCALE: 0/10 LOCATION: Bilateral neck Elevated flow velocities and ICA/CCA ratios have been found to correlate with increased degrees of vessel stenosis, calculated as percentage of diameter relative to a normal segment of distal ICA/CCA. TECHNIQUE: Volumetric scanning was performed using a multirow detector CT scanner. The data was post processed with a variety of visualization algorithms including full-volume maximum intensity projection, multip lanar sliding thin-slab reformation, curved-planar reformation, and surface-rendering techniques. Us ing automated exposure control and adjustment of the mA and/or kV according to patient size, radiatio n dose was kept as low as reasonably achievable to obtain optimal diagnostic quality images. FINDINGS: AORTIC ARCH: There is a three-vessel origin of the great vessels from the aorta. No evidence of ostial narrowing. RIGHT CAROTID: The common carotid artery is intact. Mild calcified plaque at the bulb without significant stenosis. The external carotid artery is intact. LEFT CAROTID: The common carotid artery is intact. Mild calcified plaque at the bulb without significant stenosis. The external carotid artery is intact. VERTEBRALS: Dominant left vertebral artery. No stenotic lesions are seen. CONCLUSION: No significant stenosis within either carotid artery. Zhen Arboleda MD on November 04, 2016 at 9:08 Board Certified Radiologist. This report was verified electronically.
[2016-11-04] MEDS ORDERED: SOD PHOSPHATE/SOD BIPHOSPHATE (ADULT) ENEMA 133ML RECTAL PRN (10:00)
[2016-11-04] MEDS ORDERED: LACTULOSE SYRUP 20 GM/30 ML CUP PO ONE (10:00)
[2016-11-04] MEDS ORDERED: GLYCERIN ADULT 2 GM SUPP RECTAL ONE (10:00)
--- NOTE | 2016-11-04 10:30 | HHI.PR ---
Subjective Remarks This is a pleasant 71 y/o Female stable in her bedroom no discussed with patient and her Daughter Mrs Jolene Contreras her other Daughter by the Phone, has constipation and pain increased pain medicine, Neck CTA performed in awaiting final recommendations by Neurology and Orthopedic Surgery for transfer to [facility]. No nausea, vomit and Diarrhea. complaint of generalized pain, Constipation. Blood culture positive for Coagulase Negative Staph aureus continue Vancomycin and Cefepime. Objective Vital Signs Date Time Temp Pulse Resp B/P Pulse Ox O2 Delivery O2 Flow Rate FiO2 11/04/16 08:35 98.2 89 20 169/77 96 11/04/16 04:15 98.0 82 18 175/78 97 11/04/16 00:20 98.6 82 18 160/70 97 11/03/16 21:02 95 21 11/03/16 20:00 101.0 97 17 175/74 95 11/03/16 18:00 96 11/03/16 16:00 98 11/03/16 16:00 98.5 95 22 178/79 11/03/16 14:00 86 11/03/16 12:00 98 11/03/16 12:00 99.0 88 24 168/72 I/O 11/03/16 11/03/16 11/03/16 11/04/16 11/04/16 11/04/16 06:59 14:59 22:59 06:59 14:59 22:59 Intake Total 885 ml 1065 ml 50 ml 825 ml Output Total 600 ml 600 ml Balance 285 ml 465 ml 50 ml 825 ml Intake Oral 240 ml 340 ml 50 ml 825 ml IV Total 645 ml 725 ml Output Urine Total 600 ml 600 ml Stool Total 0 ml 0 ml # Voids 2 1 3 # Bowel Movements 0 0 Result Diagram: 11/03/16 0748 11/03/16 0748 Imaging Last Impressions Neck CTA 11/02/16 0000 Signed Impressions: Service Date/Time: Friday, November 04, 2016 07:57 - CONCLUSION: No significant stenosis within either carotid artery. Zhen Arboleda MD Head CTA 11/02/16 0000 Signed Impressions: Service Date/Time: Friday, November 04, 2016 07:57 - CONCLUSION: Extensive atherosclerotic changes with multifocal areas of narrowing throughout the middle, anterior and posterior cerebral arteries. Zhen Arboleda MD Chest X-Ray 11/02/16 0000 Signed Impressions: Service Date/Time: October 04:04 - CONCLUSION: Limited by breathing motion artifact. Clear lungs. Flash Kinsey Jr., MD Carotid Artery Ultrasound 11/02/16 0000 Signed Impressions: Service Date/Time: October 10:56 - CONCLUSION: 1. Calcified plaque noted in the carotid arteries bilaterally especially around the carotid bifurcations but without hemodynamically significant stenosis. Vertebral artery flow antegrade bilaterally. Kurt Bolanos MD Head CT 11/01/16 1041 Signed Impressions: Service Date/Time: Tuesday, November 01, 2016 11:29 - CONCLUSION: 1. No acute intracranial abnormality. 2. Pineal cyst. Zhen Arboleda MD Lumbar Spine MRI 11/01/16 0000 Signed Impressions: Service Date/Time: Tuesday, November 01, 2016 16:35 - CONCLUSION: Postoperative changes as described above. I do not see an etiology for the patient's inability to bear weight. Dameon Simmons MD FACR Head Magnetic Resonance Angiography 11/01/16 0000 Signed Impressions: Service Date/Time: Tuesday, November 01, 2016 16:35 - CONCLUSION: Significant intracranial atherosclerotic vascular disease. Dameon Simmons MD FACR Brain MRI 11/01/16 0000 Signed Impressions: Service Date/Time: Tuesday, November 01, 2016 16:35 - CONCLUSION: Focal areas of restricted diffusion as described above. Location is unusual for an embolic process. However, this can occur with isolated embolus to the pericallosal artery. The second area of ischemia is in the distal anterior cerebral artery branches, both on the same side of the hemisphere. Dameon Simmons MD FACR Procedures No procedures performed. Other Results Laboratory Tests Test 11/01/16 11/01/16 11/01/16 11/02/16 10:45 11:05 17:10 01:00 Hemoglobin A1c 10.4 % Ammonia LESS THAN 10 MCMOL/L Total Creatine Kinase 645 U/L Creatine Kinase MB 1.4 NG/ML Creatine Kinase MB % 0.2 % Lipase 62 U/L Thyroid Stimulating Hormone 0.709 uIU/ML 3rd Gen Ethyl Alcohol Level LESS THAN 3 MG/DL B-Hydroxybutyrate 0.45 MMOL/L Urine Color YELLOW Urine Turbidity HAZY Urine pH 6.5 Urine Specific [place] 1.014 Urine Protein 30 mg/dL Urine Glucose (UA) 300 mg/dL Urine Ketones 10 mg/dL Urine Occult Blood TRACE Urine Nitrite NEG Urine Bilirubin NEG Urine Urobilinogen LESS THAN 2.0 MG/DL Urine Leukocyte Esterase TRACE Urine RBC 1 /hpf Urine WBC 4 /hpf Urine Squamous Epithelial 8 /hpf Cells Urine Transitional Epithelial <1 /hpf Cells Urine Bacteria RARE /hpf Urine Hyaline Casts 1 /lpf Urine Yeast (Budding) RARE Microscopic Urinalysis Comment CATH-CULTURE IND Nasal Screen MRSA (PCR) MRSA NOT DETECTED Troponin I 0.21 NG/ML Test 11/02/16 11/03/16 11/03/16 07:55 07:48 10:29 Prothrombin Time 12.8 SEC Prothromb Time International 1.2 RATIO Ratio Activated Partial 35.3 SEC Thromboplast Time Lactic Acid Level 1.3 mmol/L Triglycerides Level 87 MG/DL Cholesterol Level 143 MG/DL LDL Cholesterol 83 MG/DL HDL Cholesterol 42.8 MG/DL Cholesterol/HDL Ratio 3.34 RATIO White Blood Count 11.2 TH/MM3 Red Blood Count 3.58 MIL/MM3 Hemoglobin 10.1 GM/DL Hematocrit 31.5 % Mean Corpuscular Volume 87.9 FL Mean Corpuscular Hemoglobin 28.2 PG Mean Corpuscular Hemoglobin 32.1 % Concent Red Cell Distribution Width 14.6 % Platelet Count 201 TH/MM3 Mean Platelet Volume 9.1 FL Neutrophils (%) (Auto) 80.3 % Lymphocytes (%) (Auto) 11.1 % Monocytes (%) (Auto) 7.5 % Eosinophils (%) (Auto) 0.3 % Basophils (%) (Auto) 0.8 % Neutrophils # (Auto) 9.0 TH/MM3 Lymphocytes # (Auto) 1.2 TH/MM3 Monocytes # (Auto) 0.8 TH/MM3 Eosinophils # (Auto) 0.0 TH/MM3 Basophils # (Auto) 0.1 TH/MM3 CBC Comment DIFF FINAL Differential Comment Sodium Level 133 MEQ/L Potassium Level 3.6 MEQ/L Chloride Level 96 MEQ/L Carbon Dioxide Level 26.9 MEQ/L Anion Gap 10 MEQ/L Blood Urea Nitrogen 8 MG/DL Creatinine 0.61 MG/DL Estimat Glomerular Filtration 117 ML/MIN Rate Random Glucose 220 MG/DL Calcium Level 8.8 MG/DL Phosphorus Level 1.8 MG/DL Magnesium Level 1.8 MG/DL Total Bilirubin 0.7 MG/DL Aspartate Amino Transf 19 U/L (AST/SGOT) Alanine Aminotransferase 16 U/L (ALT/SGPT) Alkaline Phosphatase 67 U/L Total Protein 7.2 GM/DL Albumin 2.4 GM/DL Vancomycin Level Trough 10.1 MCG/ML Objective Remarks GENERAL: Obese patient in no apparent distress. CARDIOVASCULAR: Regular rate and regular rhythm without murmurs, gallops, or rubs. RESPIRATORY: Clear to auscultation. Breath sounds equal bilaterally. No wheezes , rales, or rhonchi. GASTROINTESTINAL: Abdomen soft, non-tender, nondistended. Normal, active bowel sounds MUSCULOSKELETAL: Extremities without clubbing, cyanosis, or edema. NEURO: mildly lethargic and easily arousable- left sided weakness Medications and IVs Current Medications Medications (Trade) Dose Ordered Sig/Taisha Route Start Time Stop Time Status Last Admin Pharmacy Profile Note 0 ml @ 0 mls/hr UNSCH OTHER 11/01/16 13:30 (Maxipime Inj/NS Inj) 100 ml @ 200 mls/hr Q8H IV 11/01/16 14:00 11/04/16 05:12 (Xalatan 0.005% Opth Soln) 1 drop HS EACH EYE 11/01/16 21:00 11/03/16 22:44 (Protonix) 40 mg DAILY PO 11/02/16 09:00 11/04/16 08:33 (Detrol La) 2 mg DAILY PO 11/02/16 09:00 11/04/16 08:31 (Trandate Inj) 10 mg Q1HR PRN IV PUSH 11/01/16 14:00 11/02/16 13:19 (Apresoline Inj) 10 mg Q1HR PRN IV PUSH 11/01/16 14:00 11/03/16 15:43 Nitroglycerin 2 inch 2 inch Q6HR PRN TOPICAL 11/01/16 14:00 (NS 1000 ml Inj) 1,000 ml @ 84 mls/hr [id number] IV 11/01/16 13:31 11/03/16 16:58 (NS Flush) 2 ml UNSCH PRN IV FLUSH 11/01/16 13:45 (NS Flush) 2 ml BID IV FLUSH 11/01/16 21:00 11/04/16 08:35 (Tylenol) 650 mg Q6H PRN PO 11/01/16 14:00 11/03/16 22:12 ([place] 5-325 Mg) 1 tab Q4H PRN PO 11/01/16 14:00 11/04/16 10:03 (fentaNYL INJ) 50 mcg Q1H PRN IV PUSH 11/01/16 14:00 11/03/16 17:24 (Tears Naturale Opth Soln) 1 drop TID EACH EYE 11/01/16 18:00 11/02/16 13:00 (Zofran Inj) 4 mg Q6H PRN IV 11/01/16 14:00 (Colace) 100 mg BID PO 11/01/16 21:00 11/04/16 08:32 (Senokot) 17.2 mg Q12HR PRN PO 11/01/16 21:00 Miscellaneous Information 1 Q361D XX 11/01/16 13:45 (Chlorhexidine 2% Cloth) 3 pack Taper DAILY@04 TOP 11/02/16 04:00 10/29/17 03:59 11/03/16 04:00 Chlorhexidine Gluconate 3 pack 3 pack UNSCH PRN TOP 11/01/16 13:45 Potassium Chloride 100 ml @ 50 mls/hr Q2H PRN IV 11/01/16 15:30 (KCl 20 Meq Premix Inj) 100 ml @ 50 mls/hr Q2H PRN IV 11/01/16 15:30 11/02/16 09:50 Potassium Bicarb/ Potassium Chloride 50 meq 50 meq UNSCH PRN PO 11/01/16 15:30 Potassium Chloride 100 ml @ 25 mls/hr UNSCH PRN IV 11/01/16 15:30 Potassium Chloride 100 ml @ 50 mls/hr Q2H PRN IV 11/01/16 15:30 (Magnesium Sulfate Inj/NS Inj) 100 ml @ 50 mls/hr UNSCH PRN IV 11/01/16 15:30 Magnesium Oxide 800 mg 800 mg UNSCH PRN PO 11/01/16 15:30 (Magnesium Sulfate Inj/NS Inj) 100 ml @ 50 mls/hr UNSCH PRN IV 11/01/16 15:30 Potassium Phosphate 2000 mg 2,000 mg Q4H PRN PO 11/01/16 15:30 (Sodium Phosphate Inj/NS 250 ml Inj) 250 ml @ 42 mls/hr UNSCH PRN IV 11/01/16 15:30 (K-Phos) 2,000 mg UNSCH PRN PO/TUBE 11/01/16 15:30 (Aspirin) 325 mg DAILY PO 11/02/16 09:00 11/04/16 08:32 (Pravachol) 40 mg HS PO 11/01/16 21:00 11/03/16 22:12 (Tenormin) 50 mg BID PO 11/02/16 21:00 11/04/16 08:33 (Lipitor) 20 mg DAILY PO 11/03/16 09:00 11/04/16 08:33 (Apresoline) 25 mg Q8HR PO 11/02/16 22:00 11/04/16 05:12 (Isordil) 10 mg Q8HR PO 11/02/16 22:00 11/04/16 05:12 (NS Flush) 2 ml BID IV FLUSH 11/02/16 21:00 11/04/16 08:35 (NS Flush) 2 ml UNSCH PRN IV FLUSH 11/02/16 20:45 (D50w (Vial) Inj) 25 ml UNSCH PRN IV PUSH 11/02/16 20:45 Glucagon 1 mg 1 mg UNSCH PRN IM/SQ 11/02/16 20:45 (Vancomycin Inj/ NS 500 ml Inj) 517.5 ml @ 250 mls/hr Q12H IV 11/03/16 21:00 11/04/16 08:35 Miscellaneous Information SPECIFIC LAB TO BE DRAWN:VANCO TROUGH DATE TO BE DR... 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 EEG / revealed no epileptiform activity MRI brain revealed CVA and right KAMLESH distribution along with right centrum semiovale ovale and corpus callosum MRA brain revealed significant efforts chronic disease without focal stenosis Carotid Dopplers revealed plaquing at the carotid bulb without hemodynamic limiting flow MRI L-spine revealed no surgical findings with no hematoma/abscess noted continue aspirin and statin Neurochecks Okay for aspirin 325 daily per orthopedics Okay to resume Xarelto on Sunday per orthopedics. neurology consult appreciated CTA head and neck today- continue with rehab efforts; PT/OT /ST Hypertensive crisis- BP trend overall improving. Elevated troponin On atenolol,hydralazine and Isordil continue to monitor BP and adjust the regimen as needed. troponin trending down currently 0.21. Currently chest pain-free Echocardiogram revealed EF of 70% She sees Dr. Shae Patel as an outpatient Gastroesophageal reflux disease History diverticulosis ADA diet Protonix for GI prophylaxis. On Nexium 40 mg daily at home Colace/as needed Senokot for bowel regimen Overflow incontinence Continue treatment Ditropan 5 mg by mouth 3 times a day Diabetes mellitus continue ADA diabetic diet and sliding scale. Levemir. TSH within normal limits Normocytic anemia positive blood culture for Coagulase negative Staph aureus, only one bottle found, continue cefepime and Vancomycin and follow, May be Contaminant. started on cefepime/vancomycin for recent lumbar/neurosurgery per [facility] recommendations POD # 3 s/p L4-5 laminectomy Osteoarthritis PT /OT evaluate and treat Followed by Dr. Tucker Hypokalemia-replaced. Prophylaxis - GI - Protonix - DVT - SCD/holding pharmacological prophylaxis in light of recent lumbar surgery Discharge Planning Not yet cleared for discharge. Bc Oneill MD November 04, 2016 10:29
[2016-11-04] MEDS ORDERED: SODIUM PHOSPHATE INJ 15 MMOL in SODIUM CHLORIDE 0.9% INJ 150 ML IV ONE (10:45)
[2016-11-04] MEDS ORDERED: POTASSIUM CHLORIDE 20 MEQ CONTROLLED RELEASE TAB PO ONE (10:45)
[2016-11-04] MEDS: ACETAMINOPHEN/HYDROcodone 325 MG/10 MG TAB PO PRN ×2 (14:26→20:47)
[2016-11-04] MEDS: SENNOSIDES 8.6 MG TAB PO PRN (20:47)
[2016-11-04] MEDS: LATANOPROST 0.005% OPHT SOLN 2.5 ML BTL EACH EYE SCH (23:27)
[2016-11-04] MEDS: PRAVASTATIN SOD 40 MG TAB PO SCH (23:32)
[2016-11-05] VITALS (9 sets, daily range): BP systolic 174–202; BP diastolic 79–96; PULSE 81–101; RESP 18–22; TEMP 96.9–99.3; O2SAT 93–100
[2016-11-05] MEDS: INSULIN ASPART SUPPLEMENTAL SCALE SQ SCH ×5 (00:44→22:03)
[2016-11-05] MEDS: SODIUM CHLOR 0.9% 1000 ML INJ 1,000 ML IV SCH ×3 (00:56→23:54)
[2016-11-05] MEDS: NITROGLYCERIN 2% OINT 1 GM PACKET TOPICAL PRN (01:11)
[2016-11-05] MEDS: CHLORHEXIDINE GLUCONATE 2 % 1 PACK (2 CLOTHS) TOP SCH (03:15)
[2016-11-05] MEDS: RESP: ALBUTEROL 2.5 MG/IPRATROPIUM 0.5 MG NEB (SCH) INH ×3 (03:58→15:59)
[2016-11-05] MEDS: ACETAMINOPHEN/HYDROcodone 325 MG/10 MG TAB PO PRN ×2 (04:59→18:38)
[2016-11-05] MEDS: ISOSORBIDE DINITRATE 10 MG TAB PO SCH ×3 (05:00→21:55)
[2016-11-05] MEDS: hydrALAZINE HCL 25 MG TAB PO SCH (05:00)
[2016-11-05] MEDS: CEFEPIME INJ 2,000 MG in SODIUM CHLORIDE 0.9% INJ 100 ML IV SCH ×2 (05:02→14:05)
[2016-11-05] MEDS ORDERED: PHARMACY ORDERED LAB ONE (08:45)
[2016-11-05] MEDS ORDERED: amLODIPine BESYLATE 5 MG TAB PO SCH (09:00)
[2016-11-05] MEDS ORDERED: cloNIDine HCL 0.1 MG TAB PO SCH ×2 (09:00→21:00)
--- NOTE | 2016-11-05 10:49 | HHI.PR ---
Subjective Remarks This is a pleasant 71 y/o Female stable in her bedroom no discussed with patient and her Daughter Mrs Jolene Contreras her other Daughter by the Phone, has constipation and pain increased pain medicine, Neck CTA performed in awaiting final recommendations by Neurology and Orthopedic Surgery for transfer to [facility]. No nausea, vomit and Diarrhea. complaint of generalized pain, Constipation. Blood culture positive for Coagulase Negative Staph aureus continue Vancomycin and Cefepime. 11/05: Seen in her bedroom and discussed with his Two daughters in the room also her Son present continue adjustment of blood pressure medicines and blood sugar medicines. no nausea, vomit or diarrhea. Objective Vital Signs Date Time Temp Pulse Resp B/P Pulse Ox O2 Delivery O2 Flow Rate FiO2 11/05/16 08:33 98 21 11/05/16 08:00 98.3 89 20 195/88 97 11/05/16 06:20 180/82 11/05/16 05:35 96.9 94 18 202/95 93 11/05/16 04:00 93 21 11/05/16 00:47 98.0 99 18 192/96 100 11/04/16 20:54 97.7 93 20 189/89 95 11/04/16 19:55 93 21 11/04/16 19:38 96 11/04/16 16:00 99.5 96 20 185/88 94 11/04/16 12:00 97.3 82 18 181/81 97 11/04/16 11:21 98 21 I/O 11/04/16 11/04/16 11/04/16 11/05/16 11/05/16 11/05/16 07:00 15:00 23:00 07:00 15:00 23:00 Intake Total 825 ml 240 ml 1000 ml Balance 825 ml 240 ml 1000 ml Intake Oral 825 ml 240 ml IV Total 1000 ml # Voids 3 7 2 2 # Bowel Movements 0 1 Result Diagram: 11/03/1648 11/03/1648 Imaging Last Impressions Neck CTA 11/02/16 0000 Signed Impressions: Service Date/Time: Friday, November 04, 2016 07:57 - CONCLUSION: No significant stenosis within either carotid artery. Zhen Arboleda MD Head CTA 11/02/16 0000 Signed Impressions: Service Date/Time: Friday, November 04, 2016 07:57 - CONCLUSION: Extensive atherosclerotic changes with multifocal areas of narrowing throughout the middle, anterior and posterior cerebral arteries. Zhen Arboleda MD Chest X-Ray 11/02/16 0000 Signed Impressions: Service Date/Time: October 04:04 - CONCLUSION: Limited by breathing motion artifact. Clear lungs. Flash Kinsey Jr., MD Carotid Artery Ultrasound 11/02/16 0000 Signed Impressions: Service Date/Time: October 10:56 - CONCLUSION: 1. Calcified plaque noted in the carotid arteries bilaterally especially around the carotid bifurcations but without hemodynamically significant stenosis. Vertebral artery flow antegrade bilaterally. Kurt Bolanos MD Head CT 11/01/16 1041 Signed Impressions: Service Date/Time: Tuesday, November 01, 2016 11:29 - CONCLUSION: 1. No acute intracranial abnormality. 2. Pineal cyst. Zhen Arboleda MD Lumbar Spine MRI 11/01/16 0000 Signed Impressions: Service Date/Time: Tuesday, November 01, 2016 16:35 - CONCLUSION: Postoperative changes as described above. I do not see an etiology for the patient's inability to bear weight. Dameon Simmons MD FACR Head Magnetic Resonance Angiography 11/01/16 0000 Signed Impressions: Service Date/Time: Tuesday, November 01, 2016 16:35 - CONCLUSION: Significant intracranial atherosclerotic vascular disease. Dameon Simmons MD FACR Brain MRI 11/01/16 0000 Signed Impressions: Service Date/Time: Tuesday, November 01, 2016 16:35 - CONCLUSION: Focal areas of restricted diffusion as described above. Location is unusual for an embolic process. However, this can occur with isolated embolus to the pericallosal artery. The second area of ischemia is in the distal anterior cerebral artery branches, both on the same side of the hemisphere. Dameon Simmons MD FACR Procedures No procedures performed. Other Results Laboratory Tests Test 11/01/16 11/01/16 11/01/16 11/02/16 10:45 11:05 17:10 01:00 Hemoglobin A1c 10.4 % Ammonia LESS THAN 10 MCMOL/L Total Creatine Kinase 645 U/L Creatine Kinase MB 1.4 NG/ML Creatine Kinase MB % 0.2 % Lipase 62 U/L Thyroid Stimulating Hormone 0.709 uIU/ML 3rd Gen Ethyl Alcohol Level LESS THAN 3 MG/DL B-Hydroxybutyrate 0.45 MMOL/L Urine Color YELLOW Urine Turbidity HAZY Urine pH 6.5 Urine Specific Bowers 1.014 Urine Protein 30 mg/dL Urine Glucose (UA) 300 mg/dL Urine Ketones 10 mg/dL Urine Occult Blood TRACE Urine Nitrite NEG Urine Bilirubin NEG Urine Urobilinogen LESS THAN 2.0 MG/DL Urine Leukocyte Esterase TRACE Urine RBC 1 /hpf Urine WBC 4 /hpf Urine Squamous Epithelial 8 /hpf Cells Urine Transitional Epithelial <1 /hpf Cells Urine Bacteria RARE /hpf Urine Hyaline Casts 1 /lpf Urine Yeast (Budding) RARE Microscopic Urinalysis Comment CATH-CULTURE IND Nasal Screen MRSA (PCR) MRSA NOT DETECTED Troponin I 0.21 NG/ML Test 11/02/16 11/03/16 11/03/16 07:55 07:48 10:29 Prothrombin Time 12.8 SEC Prothromb Time International 1.2 RATIO Ratio Activated Partial 35.3 SEC Thromboplast Time Lactic Acid Level 1.3 mmol/L Triglycerides Level 87 MG/DL Cholesterol Level 143 MG/DL LDL Cholesterol 83 MG/DL HDL Cholesterol 42.8 MG/DL Cholesterol/HDL Ratio 3.34 RATIO White Blood Count 11.2 TH/MM3 Red Blood Count 3.58 MIL/MM3 Hemoglobin 10.1 GM/DL Hematocrit 31.5 % Mean Corpuscular Volume 87.9 FL Mean Corpuscular Hemoglobin 28.2 PG Mean Corpuscular Hemoglobin 32.1 % Concent Red Cell Distribution Width 14.6 % Platelet Count 201 TH/MM3 Mean Platelet Volume 9.1 FL Neutrophils (%) (Auto) 80.3 % Lymphocytes (%) (Auto) 11.1 % Monocytes (%) (Auto) 7.5 % Eosinophils (%) (Auto) 0.3 % Basophils (%) (Auto) 0.8 % Neutrophils # (Auto) 9.0 TH/MM3 Lymphocytes # (Auto) 1.2 TH/MM3 Monocytes # (Auto) 0.8 TH/MM3 Eosinophils # (Auto) 0.0 TH/MM3 Basophils # (Auto) 0.1 TH/MM3 CBC Comment DIFF FINAL Differential Comment Sodium Level 133 MEQ/L Potassium Level 3.6 MEQ/L Chloride Level 96 MEQ/L Carbon Dioxide Level 26.9 MEQ/L Anion Gap 10 MEQ/L Blood Urea Nitrogen 8 MG/DL Creatinine 0.61 MG/DL Estimat Glomerular Filtration 117 ML/MIN Rate Random Glucose 220 MG/DL Calcium Level 8.8 MG/DL Phosphorus Level 1.8 MG/DL Magnesium Level 1.8 MG/DL Total Bilirubin 0.7 MG/DL Aspartate Amino Transf 19 U/L (AST/SGOT) Alanine Aminotransferase 16 U/L (ALT/SGPT) Alkaline Phosphatase 67 U/L Total Protein 7.2 GM/DL Albumin 2.4 GM/DL Vancomycin Level Trough 10.1 MCG/ML Objective Remarks GENERAL: Obese patient in no apparent distress. CARDIOVASCULAR: Regular rate and regular rhythm without murmurs, gallops, or rubs. RESPIRATORY: Clear to auscultation. Breath sounds equal bilaterally. No wheezes , rales, or rhonchi. GASTROINTESTINAL: Abdomen soft, non-tender, nondistended. Normal, active bowel sounds MUSCULOSKELETAL: Extremities without clubbing, cyanosis, or edema. NEURO: Alert and oriented x 3. left sided weakness, and left facial palsy. Medications and IVs Current Medications Medications (Trade) Dose Ordered Sig/Taisha Route Start Time Stop Time Status Last Admin Pharmacy Profile Note 0 ml @ 0 mls/hr UNSCH OTHER 11/01/16 13:30 (Maxipime Inj/NS Inj) 100 ml @ 200 mls/hr Q8H IV 11/01/16 14:00 11/05/16 05:02 (Xalatan 0.005% Opth Soln) 1 drop HS EACH EYE 11/01/16 21:00 11/04/16 23:27 (Protonix) 40 mg DAILY PO 11/02/16 09:00 11/04/16 08:33 (Detrol La) 2 mg DAILY PO 11/02/16 09:00 11/04/16 08:31 Nitroglycerin 2 inch 2 inch Q6HR PRN TOPICAL 11/01/16 14:00 11/05/16 01:11 (NS 1000 ml Inj) 1,000 ml @ 84 mls/hr [id number] IV 11/01/16 13:31 11/04/16 19:33 (Tylenol) 650 mg Q6H PRN PO 11/01/16 14:00 11/03/16 22:12 ([place] 5-325 Mg) 1 tab Q4H PRN PO 11/01/16 14:00 11/04/16 10:03 (Tears Naturale Opth Soln) 1 drop TID EACH EYE 11/01/16 18:00 11/04/16 16:47 (Zofran Inj) 4 mg Q6H PRN IV 11/01/16 14:00 (Colace) 100 mg BID PO 11/01/16 21:00 11/04/16 23:32 (Senokot) 17.2 mg Q12HR PRN PO 11/01/16 21:00 11/04/16 20:47 Miscellaneous Information 1 Q361D XX 11/01/16 13:45 (Chlorhexidine 2% Cloth) 3 pack Taper DAILY@04 TOP 11/02/16 04:00 10/29/17 03:59 11/03/16 04:00 (Chlorhexidine 2% Cloth) 3 pack UNSCH PRN TOP 11/01/16 13:45 (Mag-Ox) 800 mg UNSCH PRN PO 11/01/16 15:30 (Aspirin) 325 mg DAILY PO 11/02/16 09:00 11/04/16 08:32 (Pravachol) 40 mg HS PO 11/01/16 21:00 11/04/16 23:32 (Tenormin) 50 mg BID PO 11/02/16 21:00 11/04/16 23:32 (Lipitor) 20 mg DAILY PO 11/03/16 09:00 11/04/16 08:33 (Isordil) 10 mg Q8HR PO 11/02/16 22:00 11/05/16 05:00 (NS Flush) 2 ml BID IV FLUSH 11/02/16 21:00 11/04/16 23:28 (NS Flush) 2 ml UNSCH PRN IV FLUSH 11/02/16 20:45 (D50w (Vial) Inj) 25 ml UNSCH PRN IV PUSH 11/02/16 20:45 Glucagon 1 mg 1 mg UNSCH PRN IM/SQ 11/02/16 20:45 (Vancomycin Inj/ NS 500 ml Inj) 517.5 ml @ 250 mls/hr Q12H IV 11/03/16 21:00 11/04/16 23:28 (Fleets Enema (Adult)) 133 ml UNSCH PRN RECTAL 11/04/16 10:00 11/04/16 23:45 ([place] 10-325 Mg) 1 tab Q4H PRN PO 11/04/16 12:15 11/05/16 04:59 (Catapres) 0.1 mg BID PO 11/05/16 09:00 (Norvasc) 5 mg DAILY PO 11/05/16 09:00 A/P Assessment and Plan 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 EEG 11/01 revealed no epileptiform activity MRI brain revealed CVA and right KAMLESH distribution along with right centrum semiovale ovale and corpus callosum MRA brain revealed significant efforts chronic disease without focal stenosis Carotid Dopplers revealed plaquing at the carotid bulb without hemodynamic limiting flow MRI L-spine revealed no surgical findings with no hematoma/abscess noted continue aspirin and statin Neurochecks Okay for aspirin 325 daily per orthopedics Resumed Xarelto CTA head and neck performed no obstruction. continue with rehab efforts; PT/OT /ST Accelerated Hypertension Elevated troponin On atenolol,hydralazine, added Clonidine. continue to monitor BP and adjust the regimen as needed. troponin trending down currently 0.21. Currently chest pain-free Echocardiogram revealed EF of 70% She sees Dr. Shae Patel as an outpatient Gastroesophageal reflux disease History diverticulosis ADA diet Protonix for GI prophylaxis. On Nexium 40 mg daily at home Colace/as needed Senokot for bowel regimen Overflow incontinence Continue treatment Ditropan 5 mg by mouth 3 times a day Diabetes mellitus continue ADA diabetic diet and sliding scale. Levemir. added Insulin with every meal. TSH within normal limits Normocytic anemia positive blood culture for Coagulase negative Staph aureus, only one bottle found, continue cefepime and Vancomycin and follow, May be Contaminant. started on cefepime/vancomycin for recent lumbar/neurosurgery per Becker recommendations s/p L4-5 laminectomy Osteoarthritis PT /OT evaluate and treat Followed by Dr. Tucker Prophylaxis - GI - Protonix - DVT - SCD/holding pharmacological prophylaxis in light of recent lumbar surgery Discussed with patient and her two daughters and her son in the room, all questions answered to the best of my abilities. Discharge Planning Not yet cleared for discharge. Bc Oneill MD November 05, 2016 10:49
[2016-11-05] MEDS: TOLTERODINE TARTRATE 2 MG CAP LA PO SCH (11:20)
[2016-11-05] MEDS: SODIUM CHLORIDE 0.9% FLUSH 10 ML FLUSH IV FLUSH SCH ×2 (11:20→21:00)
[2016-11-05] MEDS: ATORVASTATIN 20 MG TAB PO SCH (11:20)
[2016-11-05] MEDS: ATENOLOL 50 MG TAB PO SCH ×2 (11:20→21:36)
[2016-11-05] MEDS: DOCUSATE SODIUM 100 MG CAP PO SCH ×2 (11:20→21:36)
[2016-11-05] MEDS: PANTOPRAZOLE SOD 40 MG DELAYED RELEASE TAB PO SCH (11:21)
[2016-11-05] MEDS: ASPIRIN 325 MG TAB PO SCH (11:21)
[2016-11-05] MEDS: ARTIFICIAL TEARS OPTH SOLN 15 ML BTL EACH EYE SCH ×3 (11:32→17:51)
[2016-11-05] MEDS: INSULIN DETEMIR 100 UNITS/ML VIAL SQ SCH ×2 (12:05→22:02)
[2016-11-05] MEDS: VANCOMYCIN INJ 2,000 MG in SODIUM CHLORID 0.9% 500 ML INJ 500 ML IV SCH ×2 (12:45→23:54)
[2016-11-05] MEDS: ACETAMINOPHEN/HYDROcodone 325 MG/5 MG TAB PO PRN (14:06)
--- NOTE | 2016-11-05 17:01 | MB ---
cc: JOB MARCOS MD DATE OF CONSULTATION: 11/05/2016. REASON FOR CONSULTATION: Bacteremia secondary to Staphylococcus coagulase-negative. REQUESTING PHYSICIAN: Dr. Belle. HISTORY OF PRESENT ILLNESS: This is a 71-year white female who was brought to the emergency department because of inability to bear weight on the legs. The patient is status post recent L4-L5 bilateral decompressive hemilaminectomy and bilateral foraminotomy by Dr. Tucker on 10/30/16. She had become more lethargic and apparently was having pain and weakness in the left leg. The patient was admitted and has been worked up. She has been found to have a CVA. She has a right anterior cerebral artery pericallosal artery stroke. She is being followed by neurology. She has left lower extremity weakness. She appears awake. I am unable to get any meaningful information from her and therefore information is obtained from the medical record. The patient had temperature of 102.8 degrees on 11/01 at the time the blood cultures were drawn. The blood cultures came back with Staph coagulase negative in two bottles of one set. Her white blood cell count was elevated at 13.0 at the time. Urine culture was unremarkable. A chest x-ray showed patchy airspace disease. Another chest x-ray was taken 11/02 and it showed clear lungs. The patient has no cough. She is now afebrile and the last maximum temperature was 101 degrees on the evening of 11/03, which is almost 48 hours ago. Repeat blood cultures have been obtained and results are not available. PAST MEDICAL HISTORY: 1. Hypertension. 2. Gastroesophageal reflux disease (GERD). 3. Diabetes mellitus. 4. Spinal stenosis. 5. Glaucoma. 6. Overflow incontinence. 7. History of left lower extremity deep venous thrombosis. 8. L4-5 decompressive hemilaminectomy. 9. Partial hysterectomy. ALLERGIES: DARVOCET N-100 MEDICATIONS: 1. Vancomycin. 2. Levemir. 3. Catapres. 4. Norvasc. 5. Manito 10 PRN. 6. Lipitor. 7. Isordil. 8. Tenormin. 9. Protonix. 10. Detrol LA. 11. Aspirin. 12. Colace. 13. Pravachol. 14. Cefepime. SOCIAL HISTORY: No tobacco, no alcohol, no illicit drugs. FAMILY HISTORY: Noncontributory. REVIEW OF SYSTEMS: Unable to obtain. PHYSICAL EXAMINATION GENERAL: This is a well-developed female who is in no acute distress. She is laying in bed and is awake. She does verbalize. She appears to have difficulty communicating. VITAL SIGNS: Temperature 99.2, blood pressure 184/83, respirations 22, heart rate 101. HEAD, EYES, EARS, NOSE, THROAT: The head is atraumatic. Extraocular movements grossly intact. Pupils reactive to light. No icterus. Oropharynx with moist mucosa without lesions. NECK: The neck is supple. LUNGS: Clear breath sounds. HEART: Regular S1 and S2. No audible murmurs, rubs or gallops. ABDOMEN: Abdomen distended. Positive bowel sounds. Mild tenderness. No palpable mass. RECTAL: Not performed. EXTREMITIES: Trace edema of the left lower extremity. No clubbing or cyanosis. SKIN: No rash. NEUROLOGIC: Weakness of the left lower extremity and to some extent the left upper extremity. PSYCHIATRIC: Unable to fully assess. LABORATORY DATA: WBCs 11.2, platelets 201,000, 80% neutrophils, hemoglobin 10.1. Creatinine 0.61, BUN 8, sodium 133. IMPRESSION: Bacteremia due to Staph coagulase negative in one of two sets of blood cultures. The culture is growing in both the aerobic and anaerobic bottle of that blood culture set. The patient has no clinical evidence suggesting that she is toxic. There is no clear source for the Staph coagulase-negative, and it very well could be contamination. I think it is a contamination; however, I would follow up on the new blood cultures and if it is negative, discontinue Vancomycin. I also recommend discontinuing cefepime, which she has been receiving since 11/01. Thank you for this consultation. The patient's cultures will be followed and if it becomes positive, further recommendations will be given. If it is negative, vancomycin can be discontinued. Job Marcos MD FD/ELIANA /4:09 PM /4:49 PM
[2016-11-05] MEDS: LATANOPROST 0.005% OPHT SOLN 2.5 ML BTL EACH EYE SCH (21:00)
[2016-11-05] MEDS: PRAVASTATIN SOD 40 MG TAB PO SCH (21:36)
[2016-11-05] MEDS: cloNIDine HCL 0.1 MG TAB PO SCH ×2 (21:36→21:55)
[2016-11-06] VITALS (8 sets, daily range): BP systolic 125–195; BP diastolic 65–91; PULSE 71–94; RESP 18–20; TEMP 97–99.1; O2SAT 93–97
[2016-11-06] MEDS ORDERED: ENALAPRILAT 1.25 MG/ML VIAL IV PUSH PRN (01:15)
[2016-11-06] MEDS ORDERED: hydrALAZINE HCL 10 MG TAB PO ONE (01:15)
[2016-11-06] MEDS: CHLORHEXIDINE GLUCONATE 2 % 1 PACK (2 CLOTHS) TOP SCH (03:01)
[2016-11-06] MEDS: ISOSORBIDE DINITRATE 10 MG TAB PO SCH ×3 (05:38→22:03)
[2016-11-06] MEDS: cloNIDine HCL 0.1 MG TAB PO SCH ×3 (05:38→22:03)
[2016-11-06] MEDS: INSULIN ASPART SUPPLEMENTAL SCALE SQ SCH ×4 (06:42→22:01)
[2016-11-06 06:59] LABS: AUTOMATED NEUTROPHIL # 5.5 TH/MM3 (1.8-7.7); BASOPHIL % 0.4 % (0.0-2.0); EOSINOPHIL # 0.1 TH/MM3 (0-0.4); HEMATOCRIT 26.9 % (35.0-46.0); HEMO FLAGS DIFF FINAL; LYMPH % 12.7 % (9.0-44.0); MEAN CELL VOLUME 86.3 FL (80.0-100.0); MEAN CORPUSCULAR HEMOGLOBIN 29.6 PG (27.0-34.0); MEAN CORPUSCULAR HGB CONC 34.3 % (32.0-36.0); MONO % 12.1 % (0.0-8.0); NEUT % 73.8 % (16.0-70.0); PLATELET COUNT 209 TH/MM3 (150-450); RED BLOOD COUNT 3.12 MIL/MM3 (4.00-5.30); RED CELL DISTRIBUTION WIDTH 14.6 % (11.6-17.2); WHITE BLOOD COUNT 7.5 TH/MM3 (4.0-11.0)
[2016-11-06 07:25] LABS: BICARBONATE 27.9 MEQ/L (21.0-32.0); MAGNESIUM 1.8 MG/DL (1.5-2.5); POTASSIUM 3.1 MEQ/L (3.5-5.1)
[2016-11-06] MEDS: SODIUM CHLORIDE 0.9% FLUSH 10 ML FLUSH IV FLUSH SCH ×2 (09:00→21:00)
[2016-11-06] MEDS ORDERED: ATENOLOL 50 MG TAB PO SCH (09:00)
[2016-11-06] MEDS: ARTIFICIAL TEARS OPTH SOLN 15 ML BTL EACH EYE SCH ×3 (09:25→18:18)
[2016-11-06] MEDS: ATORVASTATIN 20 MG TAB PO SCH (09:25)
[2016-11-06] MEDS: PANTOPRAZOLE SOD 40 MG DELAYED RELEASE TAB PO SCH (09:26)
[2016-11-06] MEDS: ATENOLOL 50 MG TAB PO SCH ×2 (09:26→22:03)
[2016-11-06] MEDS: ASPIRIN 325 MG TAB PO SCH (09:26)
[2016-11-06] MEDS: amLODIPine BESYLATE 5 MG TAB PO SCH (09:27)
[2016-11-06] MEDS: DOCUSATE SODIUM 100 MG CAP PO SCH ×2 (09:27→22:03)
[2016-11-06] MEDS: TOLTERODINE TARTRATE 2 MG CAP LA PO SCH (09:33)
[2016-11-06] MEDS: INSULIN DETEMIR 100 UNITS/ML VIAL SQ SCH ×2 (09:35→22:01)
[2016-11-06] MEDS: ACETAMINOPHEN/HYDROcodone 325 MG/10 MG TAB PO PRN ×2 (11:10→15:37)
[2016-11-06] MEDS: VANCOMYCIN INJ 2,000 MG in SODIUM CHLORID 0.9% 500 ML INJ 500 ML IV SCH ×2 (11:34→23:26)
[2016-11-06] MEDS ORDERED: POTASSIUM CHLORIDE 20 MEQ CONTROLLED RELEASE TAB PO ONE ×2 (12:00→14:00)
[2016-11-06] MEDS: SODIUM CHLOR 0.9% 1000 ML INJ 1,000 ML IV SCH ×2 (12:41→18:37)
[2016-11-06] MEDS: MAGNESIUM SULFATE 1 GM PREMIX 100 ML IV SCH ×2 (14:17→15:36)
--- NOTE | 2016-11-06 17:52 | PD.ORT.PN ---
Subjective Subjective Remarks pt resting comfortably denies any pain anywhere is feeling better today Objective Vitals Vital Signs Date Time Temp Pulse Resp B/P Pulse Ox O2 Delivery O2 Flow Rate FiO2 11/06/16 16:00 98.9 71 18 125/65 97 11/06/16 14:41 79 11/06/16 12:00 99.1 80 18 158/72 93 11/06/16 08:00 98.9 84 18 175/77 94 11/06/16 04:00 97.0 90 20 155/73 95 11/06/16 01:00 98.0 94 18 186/79 95 11/05/16 20:00 97.2 81 18 175/79 96 I/O 11/05/16 11/05/16 11/05/16 11/06/16 11/06/16 11/06/16 07:00 15:00 23:00 07:00 15:00 23:00 Intake Total 1000 ml 1358 ml 480 ml Balance 1000 ml 1358 ml 480 ml Intake Oral 480 ml IV Total 1000 ml 1358 ml # Voids 2 3 3 # Bowel Movements 1 Result Diagram: 11/06/16 0617 11/06/16 0617 Imaging Last [address] 11/01/16 1041 Signed Impressions: Service Date/Time: Tuesday, November 01, 2016 11:29 - CONCLUSION: 1. No acute intracranial abnormality. 2. Pineal cyst. Zhen Arboleda MD Chest X-Ray 11/01/16 1041 Signed Impressions: Service Date/Time: Tuesday, November 01, 2016 12:04 - CONCLUSION: Cardiomegaly with patchy airspace disease as described above. Considerations include both congestive failure an a inflammatory process. Dameon Simmons MD FACR Head Magnetic Resonance Angiography 11/01/16 0000 Signed Impressions: Service Date/Time: Tuesday, November 01, 2016 16:35 - CONCLUSION: Significant intracranial atherosclerotic vascular disease. Dameon Simmons MD FACR Brain MRI 11/01/16 0000 Signed Impressions: Service Date/Time: Tuesday, November 01, 2016 16:35 - CONCLUSION: Focal areas of restricted diffusion as described above. Location is unusual for an embolic process. However, this can occur with isolated embolus to the pericallosal artery. The second area of ischemia is in the distal anterior cerebral artery branches, both on the same side of the hemisphere. Dameon Simmons MD FACR Objective Remarks Lumbar spine wound healing well, dressing in place Satisfactory motor strength to RLE and bilateral upper extremities L LE 0/5, does have sensation to touch Assessment & Plan Assessment and Plan POD # 7 s/p L4-5 laminectomy patient has evidence of stroke in right cerebral artery dry dressing to lumbar incision daily physical therapy my resume xarelto now since she is one week out from her lumbar surgery Continue medical/neuro management Cammy Castillo November 06, 2016 17:52
[2016-11-06] MEDS ORDERED: diphenhydrAMINE HCL 50 MG/ML VIAL IV PUSH PRN (18:00)
--- NOTE | 2016-11-06 18:03 | HHI.PR ---
Subjective Remarks This is a pleasant 71 y/o Female stable in her bedroom no discussed with patient and her Daughter Mrs Jolene Contreras her other Daughter by the Phone, has constipation and pain increased pain medicine, Neck CTA performed in awaiting final recommendations by Neurology and Orthopedic Surgery for transfer to [facility]. No nausea, vomit and Diarrhea. complaint of generalized pain, Constipation. Blood culture positive for Coagulase Negative Staph aureus continue Vancomycin and Cefepime. 11/06: Patient seen in her bedroom and discussed with her Daughter in the room Miss Pal also another Daughter on the Phone, no nausea, vomit or diarrhea, today continue titrating her Blood pressure medicines and continue blood pressure medicines titration , not yet ready for discharge Objective Vital Signs Date Time Temp Pulse Resp B/P Pulse Ox O2 Delivery O2 Flow Rate FiO2 11/06/16 16:00 98.9 71 18 125/65 97 11/06/16 14:41 79 11/06/16 12:00 99.1 80 18 158/72 93 11/06/16 08:00 98.9 84 18 175/77 94 11/06/16 04:00 97.0 90 20 155/73 95 11/06/16 01:00 98.0 94 18 186/79 95 11/05/16 20:00 97.2 81 18 175/79 96 I/O 11/05/16 11/05/16 11/05/16 11/06/16 11/06/16 11/06/16 07:00 15:00 23:00 07:00 15:00 23:00 Intake Total 1000 ml 1358 ml 480 ml Balance 1000 ml 1358 ml 480 ml Intake Oral 480 ml IV Total 1000 ml 1358 ml # Voids 2 3 3 # Bowel Movements 1 Result Diagram: 11/06/1661611/06/16 0617 Imaging Last Impressions Neck CTA 11/02/16 0000 Signed Impressions: Service Date/Time: Friday, November 04, 2016 07:57 - CONCLUSION: No significant stenosis within either carotid artery. Zhen Arboleda MD Head CTA 11/02/16 0000 Signed Impressions: Service Date/Time: Friday, November 04, 2016 07:57 - CONCLUSION: Extensive atherosclerotic changes with multifocal areas of narrowing throughout the middle, anterior and posterior cerebral arteries. Zhen Arboleda MD Chest X-Ray 11/02/16 0000 Signed Impressions: Service Date/Time: October 04:04 - CONCLUSION: Limited by breathing motion artifact. Clear lungs. Flash Kinsey Jr., MD Carotid Artery Ultrasound 11/02/16 0000 Signed Impressions: Service Date/Time: October 10:56 - CONCLUSION: 1. Calcified plaque noted in the carotid arteries bilaterally especially around the carotid bifurcations but without hemodynamically significant stenosis. Vertebral artery flow antegrade bilaterally. Kurt Bolanos MD Head CT 11/01/16 1041 Signed Impressions: Service Date/Time: Tuesday, November 01, 2016 11:29 - CONCLUSION: 1. No acute intracranial abnormality. 2. Pineal cyst. Zhen Arboleda MD Lumbar Spine MRI 11/01/16 0000 Signed Impressions: Service Date/Time: Tuesday, November 01, 2016 16:35 - CONCLUSION: Postoperative changes as described above. I do not see an etiology for the patient's inability to bear weight. Dameon Simmons MD FACR Head Magnetic Resonance Angiography 11/01/16 0000 Signed Impressions: Service Date/Time: Tuesday, November 01, 2016 16:35 - CONCLUSION: Significant intracranial atherosclerotic vascular disease. Dameon Simmons MD FACR Brain MRI 11/01/16 0000 Signed Impressions: Service Date/Time: Tuesday, November 01, 2016 16:35 - CONCLUSION: Focal areas of restricted diffusion as described above. Location is unusual for an embolic process. However, this can occur with isolated embolus to the pericallosal artery. The second area of ischemia is in the distal anterior cerebral artery branches, both on the same side of the hemisphere. Dameon Simmons MD FACR Procedures No procedures performed. Other Results Laboratory Tests Test 11/02/16 11/02/16 11/03/16 11/05/16 01:00 07:55 07:48 11:15 Troponin I 0.21 NG/ML Prothrombin Time 12.8 SEC Prothromb Time International 1.2 RATIO Ratio Activated Partial 35.3 SEC Thromboplast Time Lactic Acid Level 1.3 mmol/L Triglycerides Level 87 MG/DL Cholesterol Level 143 MG/DL LDL Cholesterol 83 MG/DL HDL Cholesterol 42.8 MG/DL Cholesterol/HDL Ratio 3.34 RATIO Total Bilirubin 0.7 MG/DL Aspartate Amino Transf 19 U/L (AST/SGOT) Alanine Aminotransferase 16 U/L (ALT/SGPT) Alkaline Phosphatase 67 U/L Total Protein 7.2 GM/DL Albumin 2.4 GM/DL Vancomycin Level Trough 11.4 MCG/ML Test 11/06/16 06:17 White Blood Count 7.5 TH/MM3 Red Blood Count 3.12 MIL/MM3 Hemoglobin 9.2 GM/DL Hematocrit 26.9 % Mean Corpuscular Volume 86.3 FL Mean Corpuscular Hemoglobin 29.6 PG Mean Corpuscular Hemoglobin 34.3 % Concent Red Cell Distribution Width 14.6 % Platelet Count 209 TH/MM3 Mean Platelet Volume 8.5 FL Neutrophils (%) (Auto) 73.8 % Lymphocytes (%) (Auto) 12.7 % Monocytes (%) (Auto) 12.1 % Eosinophils (%) (Auto) 1.0 % Basophils (%) (Auto) 0.4 % Neutrophils # (Auto) 5.5 TH/MM3 Lymphocytes # (Auto) 1.0 TH/MM3 Monocytes # (Auto) 0.9 TH/MM3 Eosinophils # (Auto) 0.1 TH/MM3 Basophils # (Auto) 0.0 TH/MM3 CBC Comment DIFF FINAL Differential Comment Sodium Level 136 MEQ/L Potassium Level 3.1 MEQ/L Chloride Level 99 MEQ/L Carbon Dioxide Level 27.9 MEQ/L Anion Gap 9 MEQ/L Blood Urea Nitrogen 8 MG/DL Creatinine 0.47 MG/DL Estimat Glomerular Filtration 158 ML/MIN Rate Random Glucose 159 MG/DL Calcium Level 8.6 MG/DL Phosphorus Level 2.0 MG/DL Magnesium Level 1.8 MG/DL Objective Remarks GENERAL: Obese patient in no apparent distress. CARDIOVASCULAR: Regular rate and regular rhythm without murmurs, gallops, or rubs. RESPIRATORY: Clear to auscultation. Breath sounds equal bilaterally. No wheezes , rales, or rhonchi. GASTROINTESTINAL: Abdomen soft, non-tender, nondistended. Normal, active bowel sounds MUSCULOSKELETAL: Extremities without clubbing, cyanosis, or edema. NEURO: Alert and oriented x 3. left sided weakness Medications and IVs Current Medications Medications (Trade) Dose Ordered Sig/Taisha Route Start Time Stop Time Status Last Admin (Vancomycin Consult Pharmacy) 0 ml @ 0 mls/hr UNSCH OTHER 11/01/16 13:30 (Xalatan 0.005% Opth Soln) 1 drop HS EACH EYE 11/01/16 21:00 11/05/16 21:00 (Protonix) 40 mg DAILY PO 11/02/16 09:00 11/06/16 09:26 (Detrol La) 2 mg DAILY PO 11/02/16 09:00 11/06/16 09:33 Nitroglycerin 2 inch 2 inch Q6HR PRN TOPICAL 11/01/16 14:00 11/05/16 01:11 (NS 1000 ml Inj) 1,000 ml @ 84 mls/hr [id number] IV 11/01/16 13:31 11/05/16 23:54 (Tylenol) 650 mg Q6H PRN PO 11/01/16 14:00 11/03/16 22:12 ([place] 5-325 Mg) 1 tab Q4H PRN PO 11/01/16 14:00 11/05/16 14:06 (Tears Naturale Opth Soln) 1 drop TID EACH EYE 11/01/16 18:00 11/06/16 14:25 (Zofran Inj) 4 mg Q6H PRN IV 11/01/16 14:00 (Colace) 100 mg BID PO 11/01/16 21:00 11/06/16 09:27 (Senokot) 17.2 mg Q12HR PRN PO 11/01/16 21:00 11/04/16 20:47 Miscellaneous Information 1 Q361D XX 11/01/16 13:45 (Chlorhexidine 2% Cloth) 3 pack Taper DAILY@04 TOP 11/02/16 04:00 10/29/17 03:59 11/03/16 04:00 (Chlorhexidine 2% Cloth) 3 pack UNSCH PRN TOP 11/01/16 13:45 (Mag-Ox) 800 mg UNSCH PRN PO 11/01/16 15:30 (Aspirin) 325 mg DAILY PO 11/02/16 09:00 11/06/16 09:26 (Pravachol) 40 mg HS PO 11/01/16 21:00 11/05/16 21:36 (Lipitor) 20 mg DAILY PO 11/03/16 09:00 11/06/16 09:25 (Isordil) 10 mg Q8HR PO 11/02/16 22:00 11/06/16 14:16 (NS Flush) 2 ml BID IV FLUSH 11/02/16 21:00 11/06/16 09:00 (NS Flush) 2 ml UNSCH PRN IV FLUSH 11/02/16 20:45 (D50w (Vial) Inj) 25 ml UNSCH PRN IV PUSH 11/02/16 20:45 (Glucagon Inj) 1 mg UNSCH PRN IM/SQ 11/02/16 20:45 (Fleets Enema (Adult)) 133 ml UNSCH PRN RECTAL 11/04/16 10:00 11/04/16 23:45 ([place] 10-325 Mg) 1 tab Q4H PRN PO 11/04/16 12:15 11/06/16 15:37 Insulin Detemir 10 units 10 units BID SQ 11/05/16 11:00 11/06/16 09:35 (Vancomycin Inj/ NS 500 ml Inj) 520 ml @ 250 mls/hr Q12H IV 11/05/16 12:00 11/06/16 11:34 (Norvasc) 10 mg DAILY PO 11/06/16 09:00 11/06/16 09:27 (Catapres) 0.1 mg Q8HR PO 11/05/16 21:00 11/06/16 14:16 (Vasotec Inj) 1.25 mg Q6H PRN IV PUSH 11/06/16 01:15 (Tenormin) 50 mg BID PO 11/06/16 09:00 11/06/16 09:26 (Benadryl Inj) 25 mg Q12HR PRN IV PUSH 11/06/16 18:00 A/P Assessment and Plan 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 EEG 11/01 revealed no epileptiform activity MRI brain revealed CVA and right KAMLESH distribution along with right centrum semiovale ovale and corpus callosum MRA brain revealed significant efforts chronic disease without focal stenosis Carotid Dopplers revealed plaquing at the carotid bulb without hemodynamic limiting flow MRI L-spine revealed no surgical findings with no hematoma/abscess noted continue aspirin and statin Neurochecks Okay for aspirin 325 daily per orthopedics Okay to resume Xarelto on Sunday per orthopedics. neurology consult appreciated CTA head and neck today- continue with rehab efforts; PT/OT /ST Hypertensive crisis- BP trend overall improving. Elevated troponin On atenolol,hydralazine and Isordil continue to monitor BP and adjust the regimen as needed. troponin trending down currently 0.21. Currently chest pain-free Echocardiogram revealed EF of 70% She sees Dr. Shae Patel as an outpatient Gastroesophageal reflux disease History diverticulosis ADA diet Protonix for GI prophylaxis. On Nexium 40 mg daily at home Colace/as needed Senokot for bowel regimen Overflow incontinence Continue treatment Ditropan 5 mg by mouth 3 times a day Diabetes mellitus continue ADA diabetic diet and sliding scale. Levemir. TSH within normal limits Normocytic anemia positive blood culture for Coagulase negative Staph aureus, only one bottle found, continue cefepime and Vancomycin and follow, May be Contaminant. started on cefepime/vancomycin for recent lumbar/neurosurgery per [facility] recommendations POD # 3 s/p L4-5 laminectomy Osteoarthritis PT /OT evaluate and treat Followed by Dr. Tucker Hypokalemia-replaced. Prophylaxis - GI - Protonix - DVT - SCD/holding pharmacological prophylaxis in light of recent lumbar surgery Discharge Planning Not yet cleared for discharge. Bc Oneill MD November 06, 2016 18:03
--- NOTE | 2016-11-06 19:03 | HHI.PR ---
Review/Management Diagnosis right anterior cerebral artery/pericallosal artery stroke Plan continue asa Diagnosis/Plan: Daily Summary right anterior cerebral artery/pericallosal artery stroke Subjective Subjective Comments No acute events reported Active Medications Current Medications Medications (Trade) Dose Ordered Sig/Taisha Route Start Time Stop Time Status Last Admin (Vancomycin Consult Pharmacy) 0 ml @ 0 mls/hr UNSCH OTHER 11/01/16 13:30 (Xalatan 0.005% Opth Soln) 1 drop HS EACH EYE 11/01/16 21:00 11/05/16 21:00 (Protonix) 40 mg DAILY PO 11/02/16 09:00 11/06/16 09:26 (Detrol La) 2 mg DAILY PO 11/02/16 09:00 11/06/16 09:33 Nitroglycerin 2 inch 2 inch Q6HR PRN TOPICAL 11/01/16 14:00 11/05/16 01:11 (NS 1000 ml Inj) 1,000 ml @ 84 mls/hr [id number] IV 11/01/16 13:31 11/06/16 18:37 (Tylenol) 650 mg Q6H PRN PO 11/01/16 14:00 11/03/16 22:12 ([place] 5-325 Mg) 1 tab Q4H PRN PO 11/01/16 14:00 11/05/16 14:06 (Tears Naturale Opth Soln) 1 drop TID EACH EYE 11/01/16 18:00 11/06/16 18:18 (Zofran Inj) 4 mg Q6H PRN IV 11/01/16 14:00 (Colace) 100 mg BID PO 11/01/16 21:00 11/06/16 09:27 (Senokot) 17.2 mg Q12HR PRN PO 11/01/16 21:00 11/04/16 20:47 Miscellaneous Information 1 Q361D XX 11/01/16 13:45 (Chlorhexidine 2% Cloth) 3 pack Taper DAILY@04 TOP 11/02/16 04:00 10/29/17 03:59 11/03/16 04:00 (Chlorhexidine 2% Cloth) 3 pack UNSCH PRN TOP 11/01/16 13:45 (Mag-Ox) 800 mg UNSCH PRN PO 11/01/16 15:30 (Aspirin) 325 mg DAILY PO 11/02/16 09:00 11/06/16 09:26 (Pravachol) 40 mg HS PO 11/01/16 21:00 11/05/16 21:36 (Lipitor) 20 mg DAILY PO 11/03/16 09:00 11/06/16 09:25 (Isordil) 10 mg Q8HR PO 11/02/16 22:00 11/06/16 14:16 (NS Flush) 2 ml BID IV FLUSH 11/02/16 21:00 11/06/16 09:00 (NS Flush) 2 ml UNSCH PRN IV FLUSH 11/02/16 20:45 (D50w (Vial) Inj) 25 ml UNSCH PRN IV PUSH 11/02/16 20:45 (Glucagon Inj) 1 mg UNSCH PRN IM/SQ 11/02/16 20:45 (Fleets Enema (Adult)) 133 ml UNSCH PRN RECTAL 11/04/16 10:00 11/04/16 23:45 ([place] 10-325 Mg) 1 tab Q4H PRN PO 11/04/16 12:15 11/06/16 15:37 Insulin Detemir 10 units 10 units BID SQ 11/05/16 11:00 11/06/16 09:35 (Vancomycin Inj/ NS 500 ml Inj) 520 ml @ 250 mls/hr Q12H IV 11/05/16 12:00 11/06/16 11:34 (Norvasc) 10 mg DAILY PO 11/06/16 09:00 11/06/16 09:27 (Catapres) 0.1 mg Q8HR PO 11/05/16 21:00 11/06/16 14:16 (Vasotec Inj) 1.25 mg Q6H PRN IV PUSH 11/06/16 01:15 (Tenormin) 50 mg BID PO 11/06/16 09:00 11/06/16 09:26 (Benadryl Inj) 25 mg Q12HR PRN IV PUSH 11/06/16 18:00 11/06/16 18:32 Allergies Allergies Coded Allergies Darvocet-N 100 (Verified Allergy, Severe, RASH, 11/01/16) Exam I&O / VS 11/05/16 11/05/16 11/06/16 15:00 23:00 07:00 Intake Total 1000 ml 1358 ml Balance 1000 ml 1358 ml IV Total 1000 ml 1358 ml # Voids 3 Vital Signs Date Time Temp Pulse Resp B/P Pulse Ox O2 Delivery O2 Flow Rate FiO2 11/06/16 16:00 98.9 71 18 125/65 97 11/06/16 14:41 79 11/06/16 12:00 99.1 80 18 158/72 93 11/06/16 08:00 98.9 84 18 175/77 94 11/06/16 04:00 97.0 90 20 155/73 95 11/06/16 01:00 98.0 94 18 186/79 95 11/05/16 20:00 97.2 81 18 175/79 96 Respiratory: Lungs CTA, Non-labored respirations, BS equal Cardiology: Normal rate, Regular Rhythm Musculoskeletal: ROM (Within functional limits) Exam Comments lethargic cn intact motor LLE 3/5 proximal and distal strength. 5/5 RLE strength Objective Radiology Results CTA brain--atherosclerosis in several vascular territories CTA neck--no significant carotid stenosis Micro and Labs Laboratory Tests Test 11/06/16 06:17 White Blood Count 7.5 Red Blood Count 3.12 Hemoglobin 9.2 Hematocrit 26.9 Mean Corpuscular Volume 86.3 Mean Corpuscular Hemoglobin 29.6 Mean Corpuscular Hemoglobin 34.3 Concent Red Cell Distribution Width 14.6 Platelet Count 209 Mean Platelet Volume 8.5 Neutrophils (%) (Auto) 73.8 Lymphocytes (%) (Auto) 12.7 Monocytes (%) (Auto) 12.1 Eosinophils (%) (Auto) 1.0 Basophils (%) (Auto) 0.4 Neutrophils # (Auto) 5.5 Lymphocytes # (Auto) 1.0 Monocytes # (Auto) 0.9 Eosinophils # (Auto) 0.1 Basophils # (Auto) 0.0 CBC Comment DIFF FINAL Differential Comment Sodium Level 136 Potassium Level 3.1 Chloride Level 99 Carbon Dioxide Level 27.9 Anion Gap 9 Blood Urea Nitrogen 8 Creatinine 0.47 Estimat Glomerular Filtration 158 Rate Random Glucose 159 Calcium Level 8.6 Phosphorus Level 2.0 Magnesium Level 1.8 Date/Time Procedure Status Source Growth 11/05/16 13:09 Aerobic Blood Culture - Preliminary Resulted Blood Peripheral NO GROWTH IN 1 DAY 5/14/17 13:09 Anaerobic Blood Culture - Preliminary Resulted Blood Peripheral NO GROWTH IN 1 DAY Khoi Nath PhD November 06, 2016 19:03
[2016-11-06] MEDS: PRAVASTATIN SOD 40 MG TAB PO SCH (22:03)
[2016-11-06] MEDS: LATANOPROST 0.005% OPHT SOLN 2.5 ML BTL EACH EYE SCH (22:03)
[2016-11-07] VITALS (8 sets, daily range): BP systolic 143–183; BP diastolic 60–78; PULSE 70–76; RESP 18–20; TEMP 97.2–100.1; O2SAT 95–99
[2016-11-07] MEDS: CHLORHEXIDINE GLUCONATE 2 % 1 PACK (2 CLOTHS) TOP SCH (03:51)
[2016-11-07] MEDS: ISOSORBIDE DINITRATE 10 MG TAB PO SCH ×3 (06:01→21:58)
[2016-11-07] MEDS: cloNIDine HCL 0.1 MG TAB PO SCH (06:01)
[2016-11-07] MEDS: INSULIN ASPART SUPPLEMENTAL SCALE SQ SCH ×4 (06:47→21:00)
[2016-11-07] MEDS: NITROGLYCERIN 2% OINT 1 GM PACKET TOPICAL PRN (06:55)
--- NOTE | 2016-11-07 07:32 | PD.ORT.PN ---
Subjective Subjective Remarks POD#8 L4-5 Kofi decompressive laminectomy fo spinal stenosis. Pre-op patient had L>R LE weakness with foot drop;post-op patient and family stated that she had excellent recovery of LE weakness Patient c/o anterior chest pain;Medical attending notified. Since patient has been in hospital, L UE motor is the same,speech and mental status alertness,slightly slurred,mild confusion;patient still has L LE weakness Objective Vitals Vital Signs Date Time Temp Pulse Resp B/P Pulse Ox O2 Delivery O2 Flow Rate FiO2 11/07/16 04:27 97.7 71 18 164/75 95 11/07/16 00:28 97.2 74 18 176/78 95 11/06/16 20:00 97.8 80 18 195/91 93 11/06/16 16:00 98.9 71 18 125/65 97 11/06/16 14:41 79 11/06/16 12:00 99.1 80 18 158/72 93 11/06/16 08:00 98.9 84 18 175/77 94 I/O 11/06/16 11/06/16 11/06/16 11/07/16 11/07/16 11/07/16 07:00 15:00 23:00 07:00 15:00 23:00 Intake Total 480 ml Balance 480 ml Intake Oral 480 ml # Voids 3 3 3 2 # Bowel Movements 0 0 Result Diagram: 11/06/16 0617 11/06/16 1855 Imaging Last [address] 11/01/16 1041 Signed Impressions: Service Date/Time: Tuesday, November 01, 2016 11:29 - CONCLUSION: 1. No acute intracranial abnormality. 2. Pineal cyst. Zhen Arboleda MD Chest X-Ray 11/01/16 1041 Signed Impressions: Service Date/Time: Tuesday, November 01, 2016 12:04 - CONCLUSION: Cardiomegaly with patchy airspace disease as described above. Considerations include both congestive failure an a inflammatory process. Dameon Simmons MD FACR Head Magnetic Resonance Angiography 11/01/16 0000 Signed Impressions: Service Date/Time: Tuesday, November 01, 2016 16:35 - CONCLUSION: Significant intracranial atherosclerotic vascular disease. Dameon Simmons MD FACR Brain MRI 11/01/16 0000 Signed Impressions: Service Date/Time: Tuesday, November 01, 2016 16:35 - CONCLUSION: Focal areas of restricted diffusion as described above. Location is unusual for an embolic process. However, this can occur with isolated embolus to the pericallosal artery. The second area of ischemia is in the distal anterior cerebral artery branches, both on the same side of the hemisphere. Dameon Simmons MD FACR Objective Remarks Lumbar spine wound healing well, dressing in place Satisfactory motor strength to RLE and bilateral upper extremities L LE 0/5, does have sensation to touch Assessment & Plan Assessment and Plan POD # 8 s/p L4-5 laminectomy patient has evidence of stroke in right cerebral artery dry dressing to lumbar incision daily physical therapy my resume xarelto now since she is one week out from her lumbar surgery Continue medical/neuro management Await medical eval for cardiac evaluation for chest pain Spoke with daughter,Leeann Dhaval Tucker MD November 07, 2016 07:32
[2016-11-07] MEDS: DOCUSATE SODIUM 100 MG CAP PO SCH ×2 (08:37→21:58)
[2016-11-07] MEDS: PANTOPRAZOLE SOD 40 MG DELAYED RELEASE TAB PO SCH (08:38)
[2016-11-07] MEDS: ATENOLOL 50 MG TAB PO SCH ×2 (08:38→21:58)
[2016-11-07] MEDS: TOLTERODINE TARTRATE 2 MG CAP LA PO SCH (08:38)
[2016-11-07] MEDS: ATORVASTATIN 20 MG TAB PO SCH (08:38)
[2016-11-07] MEDS: ASPIRIN 325 MG TAB PO SCH (08:38)
[2016-11-07] MEDS: amLODIPine BESYLATE 5 MG TAB PO SCH (08:38)
[2016-11-07] MEDS: INSULIN DETEMIR 100 UNITS/ML VIAL SQ SCH ×2 (08:41→22:06)
[2016-11-07 09:43] LABS: CREATINE KINASE 61 U/L (26-192)
[2016-11-07] MEDS: SODIUM CHLORIDE 0.9% FLUSH 10 ML FLUSH IV FLUSH SCH ×2 (11:43→22:06)
[2016-11-07] MEDS ORDERED: PHARMACY ORDERED LAB ONE (11:45)
[2016-11-07] MEDS: cloNIDine HCL 0.2 MG TAB PO SCH ×2 (13:06→21:58)
[2016-11-07] MEDS: VANCOMYCIN INJ 2,000 MG in SODIUM CHLORID 0.9% 500 ML INJ 500 ML IV SCH (13:07)
[2016-11-07] MEDS: ARTIFICIAL TEARS OPTH SOLN 15 ML BTL EACH EYE SCH ×2 (13:10→18:00)
--- NOTE | 2016-11-07 13:22 | EKG ---
Date Performed: 11/07/2016 Time Performed: 06:53:48 PTAGE: 71 years EKG: Sinus rhythm BORDERLINE LEFT AXIS DEVIATION ST DEVIATION AND MODERATE T-WAVE ABNORMALITY, CONSIDER LATERAL ISCHEM IA ABNORMAL ECG PREVIOUS TRACING : 11/01/2016 10.48 Compared to prior tracing no significant change DOCTOR: Josiah Mcmahan Interpretating Date/Time 11/07/2016 13:21:26
--- NOTE | 2016-11-07 15:28 | HHI.IDPN ---
Note Infectious Disease Note Patient in no distress. Pleasant and jovial. Talkative. Comprehensible speech. Afebrile. Says she feels cold. No BM last couple of days. Daughter at bedside. Presented with inability to bear weight on the legs. She had become more lethargic and apparently was having pain and weakness in the left leg. The patient was admitted and has been worked up. She has been found to have a CVA. recent L4-L5 bilateral decompressive hemilaminectomy and bilateral foraminotomy by Dr. Tucker on 10/30/16. PAST MEDICAL HISTORY: 1. Hypertension. 2. Gastroesophageal reflux disease (GERD). 3. Diabetes mellitus. 4. Spinal stenosis. 5. Glaucoma. 6. Overflow incontinence. 7. History of left lower extremity deep venous thrombosis. 8. L4-5 decompressive hemilaminectomy. 9. Partial hysterectomy. ALLERGIES: DARVOCET N-100 ANTIBIOTICS: Vancomycin. OBJECTIVE: Vital Signs Date Time Temp Pulse Resp B/P Pulse Ox O2 Delivery O2 Flow Rate FiO2 11/07/16 12:00 99.3 75 20 178/77 99 11/07/16 08:00 100.1 76 20 160/70 98 11/07/16 04:27 97.7 71 18 164/75 95 11/07/16 00:28 97.2 74 18 176/78 95 11/06/16 20:00 97.8 80 18 195/91 93 11/06/16 16:00 98.9 71 18 125/65 97 11/06/16 11/06/16 11/07/16 14:59 22:59 06:59 Intake Total 480 ml Balance 480 ml Intake Oral 480 ml # Voids 3 3 2 # Bowel Movements 0 0 Laboratory Tests Test 11/06/16 06:17 White Blood Count 7.5 TH/MM3 Red Blood Count 3.12 MIL/MM3 Hemoglobin 9.2 GM/DL Hematocrit 26.9 % Mean Corpuscular Volume 86.3 FL Mean Corpuscular Hemoglobin 29.6 PG Mean Corpuscular Hemoglobin 34.3 % Concent Red Cell Distribution Width 14.6 % Platelet Count 209 TH/MM3 Mean Platelet Volume 8.5 FL Neutrophils (%) (Auto) 73.8 % Lymphocytes (%) (Auto) 12.7 % Monocytes (%) (Auto) 12.1 % Eosinophils (%) (Auto) 1.0 % Basophils (%) (Auto) 0.4 % Neutrophils # (Auto) 5.5 TH/MM3 Lymphocytes # (Auto) 1.0 TH/MM3 Monocytes # (Auto) 0.9 TH/MM3 Eosinophils # (Auto) 0.1 TH/MM3 Basophils # (Auto) 0.0 TH/MM3 CBC Comment DIFF FINAL Differential Comment Laboratory Tests Test 11/06/16 11/06/16 11/07/16 06:17 18:55 08:56 Sodium Level 136 MEQ/L Potassium Level 3.1 MEQ/L 3.4 MEQ/L Chloride Level 99 MEQ/L Carbon Dioxide Level 27.9 MEQ/L Anion Gap 9 MEQ/L Blood Urea Nitrogen 8 MG/DL Creatinine 0.47 MG/DL Estimat Glomerular Filtration 158 ML/MIN Rate Random Glucose 159 MG/DL Calcium Level 8.6 MG/DL Phosphorus Level 2.0 MG/DL Magnesium Level 1.8 MG/DL Total Creatine Kinase 61 U/L Troponin I LESS THAN 0.02 NG/ML Microbiology Date/Time Procedure Status Source Growth 11/05/16 11:31 Aerobic Blood Culture - Preliminary Resulted Blood Peripheral NO GROWTH IN 2 DAYS 11/05/16 11:31 Anaerobic Blood Culture - Preliminary Resulted Blood Peripheral NO GROWTH IN 2 DAYS 11/05/16 13:09 Aerobic Blood Culture - Preliminary Resulted Blood Peripheral NO GROWTH IN 2 DAYS 11/05/16 13:09 Anaerobic Blood Culture - Preliminary Resulted Blood Peripheral NO GROWTH IN 2 DAYS PHYSICAL EXAMINATION GENERAL: No acute distress. Awake and alert. HEAD, EYES, EARS, NOSE, THROAT: No icterus. Oropharynx with moist mucosa without lesions. NECK: The neck is supple. LUNGS: Clear breath sounds. HEART: Regular S1 and S2. No audible murmurs, rubs or gallops. ABDOMEN: Abdomen distended. Positive bowel sounds. Non tender. EXTREMITIES: Trace edema of the left lower extremity. No clubbing or cyanosis. SKIN: No rash. NEUROLOGIC: Weakness of the left lower extremity and to some extent the left upper extremity. PSYCHIATRIC: Pleasant, calm. IMPRESSION: Bacteremia due to Staph coagulase negative in one of two sets of blood cultures. Most likely pseudobacteremia from contamination. Patient is clinically stable. RECOMMEND: Discontinue Vancomycin. I will sign off now. She can be discharged from my standpoint. Ulysses Marocs MD November 07, 2016 15:28
--- NOTE | 2016-11-07 17:04 | RADRPT ---
EXAM DATE/TIME: 11/07/2016 16:24 [facility] COMPARISON: CHEST SINGLE AP, November 01, 2016, 12:04. INDICATIONS : Short of breath. MEDICAL HISTORY : None. SURGICAL HISTORY : None. ENCOUNTER: Initial ACUITY: 1 week PAIN SCORE: 0/10 LOCATION: Bilateral chest FINDINGS: The cardiac silhouette is enlarged in transverse diameter. There is prominence of the aortic knob is with calcification characteristic of atherosclerotic vascular disease. There is subsegmental atelecta sis in the right base. No pleural effusions are identified. CONCLUSION: 1. Cardiomegaly 2. Subsegmental atelectasis right base. Kevin Johnson MD on November 07, 2016 at 17:01 Board Certified Radiologist. This report was verified electronically.
--- NOTE | 2016-11-07 17:12 | HHI.PR ---
Subjective Remarks This is a pleasant 71 y/o Female stable in her bedroom no discussed with patient and her Daughter Mrs Jolene Contreras her other Daughter by the Phone, has constipation and pain increased pain medicine, Neck CTA performed in awaiting final recommendations by Neurology and Orthopedic Surgery for transfer to [facility]. No nausea, vomit and Diarrhea. complaint of generalized pain, Constipation. Blood culture positive for Coagulase Negative Staph aureus continue Vancomycin and Cefepime. 11/07: Seen in his bedroom in the presence of her Daughter Miss Pal, and her another Daughter through the phone no nausea, vomit or diarrhea, they do not want to go to Rehab, they want her to go to [facility] she will discuss later today with another relative coming from another state. complaint of Chest pain taken CXR did not show Pneumonia also ECG no changes and Cardiac enzymes within normal limits. Objective Vital Signs Date Time Temp Pulse Resp B/P Pulse Ox O2 Delivery O2 Flow Rate FiO2 11/07/16 16:00 99.8 74 20 162/69 97 11/07/16 12:00 99.3 75 20 178/77 99 11/07/16 08:00 100.1 76 20 160/70 98 11/07/16 04:27 97.7 71 18 164/75 95 11/07/16 00:28 97.2 74 18 176/78 95 11/06/16 20:00 97.8 80 18 195/91 93 I/O 11/06/16 11/06/16 11/06/16 11/07/16 11/07/16 11/07/16 07:00 15:00 23:00 07:00 15:00 23:00 Intake Total 480 ml 720 ml Balance 480 ml 720 ml Intake Oral 480 ml 720 ml # Voids 3 3 3 2 4 # Bowel Movements 0 0 Result Diagram: 11/06/16 0617 11/06/16 1855 Imaging Last Impressions Chest X-Ray 11/07/16 0000 Signed Impressions: Service Date/Time: Monday, November 07, 2016 16:24 - CONCLUSION: 1. Cardiomegaly 2. Subsegmental atelectasis right base. Kevin Johnson MD Neck CTA 11/02/16 0000 Signed Impressions: Service Date/Time: Friday, November 04, 2016 07:57 - CONCLUSION: No significant stenosis within either carotid artery. Zhen Arboleda MD Head CTA 11/02/16 0000 Signed Impressions: Service Date/Time: Friday, November 04, 2016 07:57 - CONCLUSION: Extensive atherosclerotic changes with multifocal areas of narrowing throughout the middle, anterior and posterior cerebral arteries. Zhen Arboleda MD Carotid Artery Ultrasound 11/02/16 0000 Signed Impressions: Service Date/Time: October 10:56 - CONCLUSION: 1. Calcified plaque noted in the carotid arteries bilaterally especially around the carotid bifurcations but without hemodynamically significant stenosis. Vertebral artery flow antegrade bilaterally. Kurt Bolanos MD Head CT 11/01/16 1041 Signed Impressions: Service Date/Time: Tuesday, November 01, 2016 11:29 - CONCLUSION: 1. No acute intracranial abnormality. 2. Pineal cyst. Zhen Arboleda MD Lumbar Spine MRI 11/01/16 0000 Signed Impressions: Service Date/Time: Tuesday, November 01, 2016 16:35 - CONCLUSION: Postoperative changes as described above. I do not see an etiology for the patient's inability to bear weight. Dameon Simmons MD FACR Head Magnetic Resonance Angiography 11/01/16 0000 Signed Impressions: Service Date/Time: Tuesday, November 01, 2016 16:35 - CONCLUSION: Significant intracranial atherosclerotic vascular disease. Dameon Simmons MD FACR Brain MRI 11/01/16 0000 Signed Impressions: Service Date/Time: Tuesday, November 01, 2016 16:35 - CONCLUSION: Focal areas of restricted diffusion as described above. Location is unusual for an embolic process. However, this can occur with isolated embolus to the pericallosal artery. The second area of ischemia is in the distal anterior cerebral artery branches, both on the same side of the hemisphere. Dameon Simmons MD FACR Procedures No procedures performed. Other Results Laboratory Tests Test 11/03/16 11/06/16 11/06/16 11/07/16 07:48 06:17 18:55 08:56 Total Bilirubin 0.7 MG/DL Aspartate Amino Transf 19 U/L (AST/SGOT) Alanine Aminotransferase 16 U/L (ALT/SGPT) Alkaline Phosphatase 67 U/L Total Protein 7.2 GM/DL Albumin 2.4 GM/DL White Blood Count 7.5 TH/MM3 Red Blood Count 3.12 MIL/MM3 Hemoglobin 9.2 GM/DL Hematocrit 26.9 % Mean Corpuscular Volume 86.3 FL Mean Corpuscular Hemoglobin 29.6 PG Mean Corpuscular Hemoglobin 34.3 % Concent Red Cell Distribution Width 14.6 % Platelet Count 209 TH/MM3 Mean Platelet Volume 8.5 FL Neutrophils (%) (Auto) 73.8 % Lymphocytes (%) (Auto) 12.7 % Monocytes (%) (Auto) 12.1 % Eosinophils (%) (Auto) 1.0 % Basophils (%) (Auto) 0.4 % Neutrophils # (Auto) 5.5 TH/MM3 Lymphocytes # (Auto) 1.0 TH/MM3 Monocytes # (Auto) 0.9 TH/MM3 Eosinophils # (Auto) 0.1 TH/MM3 Basophils # (Auto) 0.0 TH/MM3 CBC Comment DIFF FINAL Differential Comment Sodium Level 136 MEQ/L Chloride Level 99 MEQ/L Carbon Dioxide Level 27.9 MEQ/L Anion Gap 9 MEQ/L Blood Urea Nitrogen 8 MG/DL Creatinine 0.47 MG/DL Estimat Glomerular Filtration 158 ML/MIN Rate Random Glucose 159 MG/DL Calcium Level 8.6 MG/DL Phosphorus Level 2.0 MG/DL Magnesium Level 1.8 MG/DL Potassium Level 3.4 MEQ/L Total Creatine Kinase 61 U/L Troponin I LESS THAN 0.02 NG/ML Test 11/07/16 12:09 Vancomycin Level Trough 15.6 MCG/ML Objective Remarks GENERAL: Obese patient in no apparent distress. CARDIOVASCULAR: Regular rate and regular rhythm without murmurs, gallops, or rubs. RESPIRATORY: Clear to auscultation. Breath sounds equal bilaterally. No wheezes , rales, or rhonchi. GASTROINTESTINAL: Abdomen soft, non-tender, nondistended. Normal, active bowel sounds MUSCULOSKELETAL: Extremities without clubbing, cyanosis, or edema. NEURO: Alert and oriented x 3. left sided weakness Medications and IVs Current Medications Medications (Trade) Dose Ordered Sig/Taisha Route Start Time Stop Time Status Last Admin (Xalatan 0.005% Opth Soln) 1 drop HS EACH EYE 11/01/16 21:00 11/06/16 22:03 (Protonix) 40 mg DAILY PO 11/02/16 09:00 11/07/16 08:38 (Detrol La) 2 mg DAILY PO 11/02/16 09:00 11/07/16 08:38 (Nitroglycerin 2% Oint) 2 inch Q6HR PRN TOPICAL 11/01/16 14:00 11/07/16 06:55 (Tylenol) 650 mg Q6H PRN PO 11/01/16 14:00 11/03/16 22:12 ([place] 5-325 Mg) 1 tab Q4H PRN PO 11/01/16 14:00 11/05/16 14:06 (Tears Naturale Opth Soln) 1 drop TID EACH EYE 11/01/16 18:00 11/07/16 13:10 (Zofran Inj) 4 mg Q6H PRN IV 11/01/16 14:00 (Colace) 100 mg BID PO 11/01/16 21:00 11/07/16 08:37 (Senokot) 17.2 mg Q12HR PRN PO 11/01/16 21:00 11/04/16 20:47 Miscellaneous Information 1 Q361D XX 11/01/16 13:45 (Chlorhexidine 2% Cloth) Taper DAILY@04 TOP 11/02/16 04:00 10/29/17 03:59 11/03/16 04:00 (Chlorhexidine 2% Cloth) 3 pack UNSCH PRN TOP 11/01/16 13:45 (Mag-Ox) 800 mg UNSCH PRN PO 11/01/16 15:30 (Aspirin) 325 mg DAILY PO 11/02/16 09:00 11/07/16 08:38 (Pravachol) 40 mg HS PO 11/01/16 21:00 11/06/16 22:03 (Lipitor) 20 mg DAILY PO 11/03/16 09:00 11/07/16 08:38 (Isordil) 10 mg Q8HR PO 11/02/16 22:00 11/07/16 13:06 (NS Flush) 2 ml BID IV FLUSH 11/02/16 21:00 11/07/16 11:43 (NS Flush) 2 ml UNSCH PRN IV FLUSH 11/02/16 20:45 (D50w (Vial) Inj) 25 ml UNSCH PRN IV PUSH 11/02/16 20:45 (Glucagon Inj) 1 mg UNSCH PRN IM/SQ 11/02/16 20:45 (Fleets Enema (Adult)) 133 ml UNSCH PRN RECTAL 11/04/16 10:00 11/04/16 23:45 ([place] 10-325 Mg) 1 tab Q4H PRN PO 11/04/16 12:15 11/06/16 15:37 (Norvasc) 10 mg DAILY PO 11/06/16 09:00 11/07/16 08:38 (Vasotec Inj) 1.25 mg Q6H PRN IV PUSH 11/06/16 01:15 (Tenormin) 50 mg BID PO 11/06/16 09:00 11/07/16 08:38 (Benadryl Inj) 25 mg Q12HR PRN IV PUSH 11/06/16 18:00 11/06/16 18:32 (Levemir Inj) 12 units BID SQ 11/07/16 09:00 11/07/16 08:41 (Catapres) 0.2 mg Q8HR PO 11/07/16 14:00 11/07/16 13:06 A/P Assessment and Plan 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 EEG 11/01 revealed no epileptiform activity MRI brain revealed CVA and right KAMLESH distribution along with right centrum semiovale ovale and corpus callosum MRA brain revealed significant efforts chronic disease without focal stenosis Carotid Dopplers revealed plaquing at the carotid bulb without hemodynamic limiting flow MRI L-spine revealed no surgical findings with no hematoma/abscess noted continue aspirin and statin Neurochecks Okay for aspirin 325 daily per orthopedics Okay to resume Xarelto on Sunday per orthopedics. neurology consult appreciated CTA head and neck today- continue with rehab efforts; PT/OT /ST Hypertensive crisis- BP trend overall improving. Elevated troponin On atenolol,hydralazine and Isordil continue to monitor BP and adjust the regimen as needed. troponin trending down currently 0.21. Currently chest pain-free Echocardiogram revealed EF of 70% She sees Dr. Shae Patel as an outpatient new set of Cardiac enzymes within normal limits Gastroesophageal reflux disease History diverticulosis ADA diet Protonix for GI prophylaxis. On Nexium 40 mg daily at home Colace/as needed Senokot for bowel regimen Overflow incontinence Continue treatment Ditropan 5 mg by mouth 3 times a day Diabetes mellitus continue ADA diabetic diet and sliding scale. Levemir. TSH within normal limits Normocytic anemia positive blood culture for Coagulase negative Staph aureus, only one bottle found, continue cefepime and Vancomycin and follow, May be Contaminant. started on cefepime/vancomycin for recent lumbar/neurosurgery per Becker recommendations POD # 3 s/p L4-5 laminectomy Osteoarthritis PT /OT evaluate and treat Followed by Dr. Tucker Hypokalemia-replaced. Prophylaxis - GI - Protonix - DVT - SCD/holding pharmacological prophylaxis in light of recent lumbar surgery Discharge Planning Cleared for discharge to [facility] MD November 07, 2016 17:12
[2016-11-07] MEDS: ACETAMINOPHEN/HYDROcodone 325 MG/10 MG TAB PO PRN (21:58)
[2016-11-07] MEDS: LATANOPROST 0.005% OPHT SOLN 2.5 ML BTL EACH EYE SCH (21:58)
[2016-11-07] MEDS: SENNOSIDES 8.6 MG TAB PO PRN (21:58)
[2016-11-07] MEDS: PRAVASTATIN SOD 40 MG TAB PO SCH (21:58)
[2016-11-08 00:50] VITALS: BP 146/49; PULSE 74; RESP 18; TEMP 96.3; O2SAT 100
[2016-11-08] MEDS: CHLORHEXIDINE GLUCONATE 2 % 1 PACK (2 CLOTHS) TOP SCH (04:00)
[2016-11-08] MEDS: ACETAMINOPHEN/HYDROcodone 325 MG/10 MG TAB PO PRN ×2 (04:49→08:26)
[2016-11-08] MEDS: cloNIDine HCL 0.2 MG TAB PO SCH ×2 (04:49→13:55)
[2016-11-08 05:27] VITALS: BP 163/57; PULSE 95; RESP 19; TEMP 99.6; O2SAT 99
[2016-11-08 05:54] VITALS: PULSE 67
[2016-11-08] MEDS: ISOSORBIDE DINITRATE 10 MG TAB PO SCH ×3 (06:00→13:55)
[2016-11-08] MEDS: INSULIN ASPART SUPPLEMENTAL SCALE SQ SCH ×2 (06:26→11:33)
--- NOTE | 2016-11-08 07:55 | PD.ORT.PN ---
Subjective Subjective Remarks POD#9 L4-5 Kofi decompressive laminectomy fo spinal stenosis. Pre-op patient had L>R LE weakness with foot drop;post-op patient and family stated that she had excellent recovery of LE weakness Patient has no c/o anterior chest pain today Since patient has been in hospital, L UE motor is the same,speech and mental status alertness,slightly slurred,mild confusion;patient still has L LE weakness Objective Vitals Vital Signs Date Time Temp Pulse Resp B/P Pulse Ox O2 Delivery O2 Flow Rate FiO2 11/08/16 05:27 99.6 95 19 163/57 99 11/08/16 00:50 96.3 74 18 146/49 100 11/07/16 20:16 97.6 74 18 183/60 98 11/07/16 18:14 97 21 11/07/16 16:00 75 11/07/16 16:00 99.8 74 20 162/69 97 11/07/16 12:00 99.3 75 20 178/77 99 11/07/16 08:53 97 21 11/07/16 08:00 100.1 76 20 160/70 98 I/O 11/07/16 11/07/16 11/07/16 11/08/16 11/08/16 11/08/16 06:59 14:59 22:59 06:59 14:59 22:59 Intake Total 720 ml Balance 720 ml Intake Oral 720 ml # Voids 2 4 1 # Bowel Movements 0 Result Diagram: 11/06/16 0617 11/06/16 1855 Imaging Last [address] 11/01/16 1041 Signed Impressions: Service Date/Time: Tuesday, November 01, 2016 11:29 - CONCLUSION: 1. No acute intracranial abnormality. 2. Pineal cyst. Zhen Arboleda MD Chest X-Ray 11/01/16 1041 Signed Impressions: Service Date/Time: Tuesday, November 01, 2016 12:04 - CONCLUSION: Cardiomegaly with patchy airspace disease as described above. Considerations include both congestive failure an a inflammatory process. Dameon Simmons MD FACR Head Magnetic Resonance Angiography 11/01/16 0000 Signed Impressions: Service Date/Time: Tuesday, November 01, 2016 16:35 - CONCLUSION: Significant intracranial atherosclerotic vascular disease. Dameon Simmons MD FACR Brain MRI 11/01/16 0000 Signed Impressions: Service Date/Time: Tuesday, November 01, 2016 16:35 - CONCLUSION: Focal areas of restricted diffusion as described above. Location is unusual for an embolic process. However, this can occur with isolated embolus to the pericallosal artery. The second area of ischemia is in the distal anterior cerebral artery branches, both on the same side of the hemisphere. Dameon Simmons MD FACR Objective Remarks Lumbar spine wound healing well, dressing in place Satisfactory motor strength to RLE and bilateral upper extremities L LE 0/5, Assessment & Plan Assessment and Plan POD # 9 s/p L4-5 laminectomy patient has evidence of stroke in right cerebral artery dry dressing to lumbar incision daily physical therapy my resume xarelto now since she is > one week out from her lumbar surgery Continue medical/neuro management Ortho stable to be transferred to Inpatient rehab today Dhaval Tucker MD November 08, 2016 07:55
[2016-11-08 08:15] VITALS: BP 166/55; PULSE 66; RESP 18; TEMP 99.1; O2SAT 100
[2016-11-08] MEDS: DOCUSATE SODIUM 100 MG CAP PO SCH (08:24)
[2016-11-08] MEDS: PANTOPRAZOLE SOD 40 MG DELAYED RELEASE TAB PO SCH (08:25)
[2016-11-08] MEDS: amLODIPine BESYLATE 5 MG TAB PO SCH (08:25)
[2016-11-08] MEDS: ATORVASTATIN 20 MG TAB PO SCH (08:25)
[2016-11-08] MEDS: ATENOLOL 50 MG TAB PO SCH (08:25)
[2016-11-08] MEDS: ASPIRIN 325 MG TAB PO SCH (08:25)
[2016-11-08] MEDS: ARTIFICIAL TEARS OPTH SOLN 15 ML BTL EACH EYE SCH ×2 (08:26→13:00)
[2016-11-08] MEDS: SODIUM CHLORIDE 0.9% FLUSH 10 ML FLUSH IV FLUSH SCH (08:26)
[2016-11-08] MEDS: TOLTERODINE TARTRATE 2 MG CAP LA PO SCH (08:26)
[2016-11-08] MEDS: INSULIN DETEMIR 100 UNITS/ML VIAL SQ SCH (08:30)
[2016-11-08 08:44] LABS: BICARBONATE 29.4 MEQ/L (21.0-32.0); MAGNESIUM 1.9 MG/DL (1.5-2.5); POTASSIUM 3.6 MEQ/L (3.5-5.1)
[2016-11-08] MEDS ORDERED: ISOS10TA PO (11:53)
[2016-11-08] MEDS ORDERED: CLON.2 PO (11:53)
[2016-11-08] MEDS ORDERED: ASPI325T PO (11:53)
[2016-11-08] MEDS ORDERED: AMLO5 PO (11:53)
[2016-11-08] MEDS ORDERED: ATEN50TA PO (11:53)
[2016-11-08] MEDS ORDERED: PRAV40TA PO (11:53)
[2016-11-08 12:00] VITALS: BP 162/71; PULSE 61; RESP 18; TEMP 97.4; O2SAT 99
--- NOTE | 2016-11-08 12:22 | HHI.DS ---
Discharge Summary Admission Date November 01, 2016 at 13:24 Discharge Date: November 08, 2016 Admitting Diagnosis Sepsis, Altered mental status (1) Abdominal pain ICD Code: R10.9 Diagnosis: Principal (2) Altered mental state ICD Code: R41.82 Diagnosis: Principal (3) Hypertension ICD Code: I10 Diagnosis: Principal (4) Elevated troponin ICD Code: R74.8 Diagnosis: Principal (5) Gastro-esophageal reflux ICD Code: K21.9 Diagnosis: Principal (6) Diabetes mellitus ICD Code: E11.9 Diagnosis: Principal (7) Left foot drop ICD Code: M21.372 Diagnosis: Principal (8) History of DVT (deep vein thrombosis) ICD Code: Z86.718 Diagnosis: Principal (9) Overflow incontinence ICD Code: N39.490 Diagnosis: Principal (10) UTI (urinary tract infection) ICD Code: N39.0 Diagnosis: Principal (11) Diverticulosis ICD Code: K57.90 Diagnosis: Principal (12) Glaucoma ICD Code: H40.9 Diagnosis: Principal (13) History of lumbar laminectomy ICD Code: Z98.890 Diagnosis: Principal (14) Severe sepsis ICD Code: A41.9 Diagnosis: Principal Procedures L4/5 bilateral decompressive hemilaminectomy, bilateral foraminotomy , bilateral partial facetectomy with depression nerve roots secondary to L4/5 severe spinal stenosis, right lumbar radiculitis with left greater than right lower extremity weakness, left foot drop Brief History - From Admission 71-year-old AAF. Date of admission 11/01/2016. Past medical history includes recent (10/30/16) L4/L5 bilateral decompressive hemilaminectomy, bilateral foraminotomy, bilateral partial facet colectomy with decompression the nerve roots secondary to L4/L5 moderate severe spinal stenosis, left greater than right lumbar radiculitis with left greater than right lower extremity weakness and left foot drop. 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 She presents to [facility] with the following history. According to family,, patient has had weakness in her left leg and has been previously able to stand on her right leg. However since surgery, noticed increasing weakness in left and now in right lower extremity. She is able to walk once last night and was brought in by family for evaluation. Last received pain medication at 1 AM. There was concern that she is unable to stand/bear weight on the right foot . Upon presentation, she had a blood pressure 230 systolic. For this she was given [address] head revealed no acute intracranial findings. Chest x-ray shows no signs of focal pneumonia. He has a urinary tract infection and a rapid cell count of 13,000. Troponin was elevated 0.15. EKG revealed ST elevation in V1 and V2 with ST depression in leads a/aVF, V3 through V6, left axis deviation with sinus rhythm. There was vague complaints of chest pain radiating down her back towards her coccyx. This is not pressure. This does not radiate to her neck or down her shoulder. It is not sharp. On examination, she does have subjective weakness to her left lower extremity. She has range of motion her right lower extremity but unable to stand. Dr. Dhaval Tucker was notified by ED physician. He does not believe this is infectious etiology. He states that the patient might not recover function in her left lower extremity. On examination, the surgical site is clean dry and intact. Without erythema or drainage. There are no meningeal signs on examination. CBC/BMP: 11/06/16 0617 11/08/16 0805 Significant Findings Laboratory Tests Test 11/06/16 11/06/16 11/07/16 11/07/16 06:17 18:55 08:56 12:09 Red Blood Count 3.12 MIL/MM3 (4.00-5.30) Hemoglobin 9.2 GM/DL (11.6-15.3) Hematocrit 26.9 % (35.0-46.0) Neutrophils (%) (Auto) 73.8 % (16.0-70.0) Monocytes (%) (Auto) 12.1 % (0.0-8.0) Potassium Level 3.1 MEQ/L 3.4 MEQ/L (3.5-5.1) (3.5-5.1) Creatinine 0.47 MG/DL (0.50-1.00) Random Glucose 159 MG/DL (74-106) Phosphorus Level 2.0 MG/DL (2.5-4.9) Troponin I LESS THAN 0.02 NG/ML (0.02-0.05) Vancomycin Level Trough 15.6 MCG/ML (5.0-10.0) Test 11/08/16 08:05 Creatinine 0.44 MG/DL (0.50-1.00) Random Glucose 147 MG/DL (74-106) Imaging Last Impressions Chest X-Ray 11/07/16 0000 Signed Impressions: Service Date/Time: Monday, November 07, 2016 16:24 - CONCLUSION: 1. Cardiomegaly 2. Subsegmental atelectasis right base. Kevin Johnson MD Neck CTA 11/02/16 0000 Signed Impressions: Service Date/Time: Friday, November 04, 2016 07:57 - CONCLUSION: No significant stenosis within either carotid artery. Zhen Arboleda MD Head CTA 11/02/16 0000 Signed Impressions: Service Date/Time: Friday, November 04, 2016 07:57 - CONCLUSION: Extensive atherosclerotic changes with multifocal areas of narrowing throughout the middle, anterior and posterior cerebral arteries. Zhen Arboleda MD Carotid Artery Ultrasound 11/02/16 0000 Signed Impressions: Service Date/Time: October 10:56 - CONCLUSION: 1. Calcified plaque noted in the carotid arteries bilaterally especially around the carotid bifurcations but without hemodynamically significant stenosis. Vertebral artery flow antegrade bilaterally. Kurt Bolanos MD Head CT 11/01/16 1041 Signed Impressions: Service Date/Time: Tuesday, November 01, 2016 11:29 - CONCLUSION: 1. No acute intracranial abnormality. 2. Pineal cyst. Zhen Arboleda MD Lumbar Spine MRI 11/01/16 0000 Signed Impressions: Service Date/Time: Tuesday, November 01, 2016 16:35 - CONCLUSION: Postoperative changes as described above. I do not see an etiology for the patient's inability to bear weight. Dameon Simmons MD FACR Head Magnetic Resonance Angiography 11/01/16 0000 Signed Impressions: Service Date/Time: Tuesday, November 01, 2016 16:35 - CONCLUSION: Significant intracranial atherosclerotic vascular disease. Dameon Simmons MD FACR Brain MRI 11/01/16 0000 Signed Impressions: Service Date/Time: Tuesday, November 01, 2016 16:35 - CONCLUSION: Focal areas of restricted diffusion as described above. Location is unusual for an embolic process. However, this can occur with isolated embolus to the pericallosal artery. The second area of ischemia is in the distal anterior cerebral artery branches, both on the same side of the hemisphere. Dameon Simmons MD FACR PE at Discharge GENERAL: Obese patient in no apparent distress. CARDIOVASCULAR: Regular rate and regular rhythm without murmurs, gallops, or rubs. RESPIRATORY: Clear to auscultation. Breath sounds equal bilaterally. No wheezes , rales, or rhonchi. GASTROINTESTINAL: Abdomen soft, non-tender, nondistended. Normal, active bowel sounds MUSCULOSKELETAL: Extremities without clubbing, cyanosis, or edema. NEURO: Alert and oriented x 3. left sided weakness, and left facial palsy. Hospital Course This is a pleasant 71 y/o Female stable in her bedroom no discussed with patient and her Daughter Mrs Jolene Contreras her other Daughter by the Phone, has constipation and pain increased pain medicine, Neck CTA performed in awaiting final recommendations by Neurology and Orthopedic Surgery for transfer to [facility]. No nausea, vomit and Diarrhea. complaint of generalized pain, Constipation. Blood culture positive for Coagulase Negative Staph aureus continue Vancomycin and Cefepime. 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 EEG 11/01 revealed no epileptiform activity MRI brain revealed CVA and right KAMLESH distribution along with right centrum semiovale ovale and corpus callosum MRA brain revealed significant efforts chronic disease without focal stenosis Carotid Dopplers revealed plaquing at the carotid bulb without hemodynamic limiting flow MRI L-spine revealed no surgical findings with no hematoma/abscess noted continue aspirin and statin Neurochecks Okay for aspirin 325 daily per orthopedics Okay to resume Xarelto on Sunday per orthopedics. neurology consult appreciated CTA head and neck today- continue with rehab efforts; PT/OT /ST Hypertensive crisis- BP trend overall improving. Elevated troponin On atenolol,hydralazine and Isordil continue to monitor BP and adjust the regimen as needed. troponin trending down currently 0.21. Currently chest pain-free Echocardiogram revealed EF of 70% She sees Dr. Shae Patel as an outpatient new set of Cardiac enzymes within normal limits Gastroesophageal reflux disease History diverticulosis ADA diet Protonix for GI prophylaxis. On Nexium 40 mg daily at home Colace/as needed Senokot for bowel regimen Overflow incontinence Continue treatment Ditropan 5 mg by mouth 3 times a day Diabetes mellitus continue ADA diabetic diet and sliding scale. Levemir. TSH within normal limits Normocytic anemia positive blood culture for Coagulase negative Staph aureus, only one bottle found, continue cefepime and Vancomycin and follow, May be Contaminant. started on cefepime/vancomycin for recent lumbar/neurosurgery per Becker recommendations POD # 3 s/p L4-5 laminectomy Osteoarthritis PT /OT evaluate and treat Followed by Dr. Tucker Hypokalemia-replaced. Prophylaxis - GI - Protonix - DVT - SCD/holding pharmacological prophylaxis in light of recent lumbar surgery Discharge Planning Cleared for discharge to [facility] Pt Condition on Discharge: Stable Discharge Disposition: Rehab Inpatient Discharge Time: > 30 minutes Discharge Instructions DIET: Follow Instructions for: Heart Healthy Diet, Diabetic Diet Activities you can perform: Regular-No Restrictions Bc Oneill MD November 08, 2016 12:06
--- NOTE | 2016-11-08 12:22 | HHI.PR ---
Subjective Remarks This is a pleasant 71 y/o Female stable in her bedroom no discussed with patient and her Daughter Mrs Jolene Contreras her other Daughter by the Phone, has constipation and pain increased pain medicine, Neck CTA performed in awaiting final recommendations by Neurology and Orthopedic Surgery for transfer to [facility]. No nausea, vomit and Diarrhea. complaint of generalized pain, Constipation. Blood culture positive for Coagulase Negative Staph aureus continue Vancomycin and Cefepime. 11/08: Seen in her bedroom no new issues, no complaint, sitting in her chair, states she is feeling well today No nausea, vomit or diarrhea, her relatives wants her to go to [facility] will continue Rehab Objective Vital Signs Date Time Temp Pulse Resp B/P Pulse Ox O2 Delivery O2 Flow Rate FiO2 11/08/16 08:15 99.1 66 18 166/55 100 11/08/16 05:27 99.6 95 19 163/57 99 11/08/16 00:50 96.3 74 18 146/49 100 11/07/16 20:16 97.6 74 18 183/60 98 11/07/16 18:14 97 21 11/07/16 16:00 75 11/07/16 16:00 99.8 74 20 162/69 97 I/O 11/07/16 11/07/16 11/07/16 11/08/16 11/08/16 11/08/16 07:00 15:00 23:00 07:00 15:00 23:00 Intake Total 720 ml Balance 720 ml Intake Oral 720 ml # Voids 2 4 1 # Bowel Movements 0 Result Diagram: 11/06/16 0617 11/08/16 0805 Imaging Last Impressions Chest X-Ray 11/07/16 0000 Signed Impressions: Service Date/Time: Monday, November 07, 2016 16:24 - CONCLUSION: 1. Cardiomegaly 2. Subsegmental atelectasis right base. Kevin Johnson MD Neck CTA 11/02/16 0000 Signed Impressions: Service Date/Time: Friday, November 04, 2016 07:57 - CONCLUSION: No significant stenosis within either carotid artery. Zhen Arboleda MD Head CTA 11/02/16 0000 Signed Impressions: Service Date/Time: Friday, November 04, 2016 07:57 - CONCLUSION: Extensive atherosclerotic changes with multifocal areas of narrowing throughout the middle, anterior and posterior cerebral arteries. Zhen Arboleda MD Carotid Artery Ultrasound 11/02/16 0000 Signed Impressions: Service Date/Time: October 10:56 - CONCLUSION: 1. Calcified plaque noted in the carotid arteries bilaterally especially around the carotid bifurcations but without hemodynamically significant stenosis. Vertebral artery flow antegrade bilaterally. Kurt Bolanos MD Head CT 11/01/16 1041 Signed Impressions: Service Date/Time: Tuesday, November 01, 2016 11:29 - CONCLUSION: 1. No acute intracranial abnormality. 2. Pineal cyst. Zhen Arboleda MD Lumbar Spine MRI 11/01/16 0000 Signed Impressions: Service Date/Time: Tuesday, November 01, 2016 16:35 - CONCLUSION: Postoperative changes as described above. I do not see an etiology for the patient's inability to bear weight. Dameon Simmons MD FACR Head Magnetic Resonance Angiography 11/01/16 0000 Signed Impressions: Service Date/Time: Tuesday, November 01, 2016 16:35 - CONCLUSION: Significant intracranial atherosclerotic vascular disease. Dameon Simmons MD FACR Brain MRI 11/01/16 0000 Signed Impressions: Service Date/Time: Tuesday, November 01, 2016 16:35 - CONCLUSION: Focal areas of restricted diffusion as described above. Location is unusual for an embolic process. However, this can occur with isolated embolus to the pericallosal artery. The second area of ischemia is in the distal anterior cerebral artery branches, both on the same side of the hemisphere. Dameon Simmons MD FACR Procedures L4/5 bilateral decompressive hemilaminectomy, bilateral foraminotomy , bilateral partial facetectomy with depression nerve roots secondary to L4/5 severe spinal stenosis, right lumbar radiculitis with left greater than right lower extremity weakness, left foot drop Other Results Laboratory Tests Test 11/06/16 11/07/16 11/07/16 11/08/16 06:17 08:56 12:09 08:05 White Blood Count 7.5 TH/MM3 Red Blood Count 3.12 MIL/MM3 Hemoglobin 9.2 GM/DL Hematocrit 26.9 % Mean Corpuscular Volume 86.3 FL Mean Corpuscular Hemoglobin 29.6 PG Mean Corpuscular Hemoglobin 34.3 % Concent Red Cell Distribution Width 14.6 % Platelet Count 209 TH/MM3 Mean Platelet Volume 8.5 FL Neutrophils (%) (Auto) 73.8 % Lymphocytes (%) (Auto) 12.7 % Monocytes (%) (Auto) 12.1 % Eosinophils (%) (Auto) 1.0 % Basophils (%) (Auto) 0.4 % Neutrophils # (Auto) 5.5 TH/MM3 Lymphocytes # (Auto) 1.0 TH/MM3 Monocytes # (Auto) 0.9 TH/MM3 Eosinophils # (Auto) 0.1 TH/MM3 Basophils # (Auto) 0.0 TH/MM3 CBC Comment DIFF FINAL Differential Comment Total Creatine Kinase 61 U/L Troponin I LESS THAN 0.02 NG/ML Vancomycin Level Trough 15.6 MCG/ML Sodium Level 137 MEQ/L Potassium Level 3.6 MEQ/L Chloride Level 98 MEQ/L Carbon Dioxide Level 29.4 MEQ/L Anion Gap 10 MEQ/L Blood Urea Nitrogen 7 MG/DL Creatinine 0.44 MG/DL Estimat Glomerular Filtration 171 ML/MIN Rate Random Glucose 147 MG/DL Calcium Level 9.1 MG/DL Phosphorus Level 3.1 MG/DL Magnesium Level 1.9 MG/DL Objective Remarks GENERAL: Obese patient in no apparent distress. CARDIOVASCULAR: Regular rate and regular rhythm without murmurs, gallops, or rubs. RESPIRATORY: Clear to auscultation. Breath sounds equal bilaterally. No wheezes , rales, or rhonchi. GASTROINTESTINAL: Abdomen soft, non-tender, nondistended. Normal, active bowel sounds MUSCULOSKELETAL: Extremities without clubbing, cyanosis, or edema. NEURO: Alert and oriented x 3. left sided weakness, and left facial palsy. Medications and IVs Current Medications Medications (Trade) Dose Ordered Sig/Taisha Route Start Time Stop Time Status Last Admin (Xalatan 0.005% Opth Soln) 1 drop HS EACH EYE 11/01/16 21:00 11/07/16 21:58 (Protonix) 40 mg DAILY PO 11/02/16 09:00 11/08/16 08:25 (Detrol La) 2 mg DAILY PO 11/02/16 09:00 11/08/16 08:26 (Nitroglycerin 2% Oint) 2 inch Q6HR PRN TOPICAL 11/01/16 14:00 11/07/16 06:55 (Tylenol) 650 mg Q6H PRN PO 11/01/16 14:00 11/03/16 22:12 (Holdrege 5-325 Mg) 1 tab Q4H PRN PO 11/01/16 14:00 11/05/16 14:06 (Tears Naturale Opth Soln) 1 drop TID EACH EYE 11/01/16 18:00 11/08/16 08:26 (Zofran Inj) 4 mg Q6H PRN IV 11/01/16 14:00 (Colace) 100 mg BID PO 11/01/16 21:00 11/08/16 08:24 (Senokot) 17.2 mg Q12HR PRN PO 11/01/16 21:00 11/07/16 21:58 Miscellaneous Information 1 Q361D XX 11/01/16 13:45 (Chlorhexidine 2% Cloth) Taper DAILY@04 TOP 11/02/16 04:00 10/29/17 03:59 11/03/16 04:00 (Chlorhexidine 2% Cloth) 3 pack UNSCH PRN TOP 11/01/16 13:45 (Mag-Ox) 800 mg UNSCH PRN PO 11/01/16 15:30 (Aspirin) 325 mg DAILY PO 11/02/16 09:00 11/08/16 08:25 (Pravachol) 40 mg HS PO 11/01/16 21:00 11/07/16 21:58 (Lipitor) 20 mg DAILY PO 11/03/16 09:00 11/08/16 08:25 (Isordil) 10 mg Q8HR PO 11/02/16 22:00 11/07/16 21:58 (NS Flush) 2 ml BID IV FLUSH 11/02/16 21:00 11/08/16 08:26 (NS Flush) 2 ml UNSCH PRN IV FLUSH 11/02/16 20:45 (D50w (Vial) Inj) 25 ml UNSCH PRN IV PUSH 11/02/16 20:45 (Glucagon Inj) 1 mg UNSCH PRN IM/SQ 11/02/16 20:45 (Fleets Enema (Adult)) 133 ml UNSCH PRN RECTAL 11/04/16 10:00 11/04/16 23:45 (Holdrege 10-325 Mg) 1 tab Q4H PRN PO 11/04/16 12:15 11/08/16 08:26 (Norvasc) 10 mg DAILY PO 11/06/16 09:00 11/08/16 08:25 (Vasotec Inj) 1.25 mg Q6H PRN IV PUSH 11/06/16 01:15 (Tenormin) 50 mg BID PO 11/06/16 09:00 11/08/16 08:25 (Benadryl Inj) 25 mg Q12HR PRN IV PUSH 11/06/16 18:00 11/06/16 18:32 (Levemir Inj) 12 units BID SQ 11/07/16 09:00 11/08/16 08:30 (Catapres) 0.2 mg Q8HR PO 11/07/16 14:00 11/08/16 04:49 A/P Assessment and Plan 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 EEG 11/01 revealed no epileptiform activity MRI brain revealed CVA and right KAMLESH distribution along with right centrum semiovale ovale and corpus callosum MRA brain revealed significant efforts chronic disease without focal stenosis Carotid Dopplers revealed plaquing at the carotid bulb without hemodynamic limiting flow MRI L-spine revealed no surgical findings with no hematoma/abscess noted continue aspirin and statin Neurochecks Okay for aspirin 325 daily per orthopedics Okay to resume Xarelto on Sunday per orthopedics. neurology consult appreciated CTA head and neck today- continue with rehab efforts; PT/OT /ST Hypertensive crisis- BP trend overall improving. Elevated troponin On atenolol,hydralazine and Isordil continue to monitor BP and adjust the regimen as needed. troponin trending down currently 0.21. Currently chest pain-free Echocardiogram revealed EF of 70% She sees Dr. Shae Patel as an outpatient new set of Cardiac enzymes within normal limits Gastroesophageal reflux disease History diverticulosis ADA diet Protonix for GI prophylaxis. On Nexium 40 mg daily at home Colace/as needed Senokot for bowel regimen Overflow incontinence Continue treatment Ditropan 5 mg by mouth 3 times a day Diabetes mellitus continue ADA diabetic diet and sliding scale. Levemir. TSH within normal limits Normocytic anemia positive blood culture for Coagulase negative Staph aureus, only one bottle found, continue cefepime and Vancomycin and follow, May be Contaminant. started on cefepime/vancomycin for recent lumbar/neurosurgery per Becker recommendations POD # 3 s/p L4-5 laminectomy Osteoarthritis PT /OT evaluate and treat Followed by Dr. Tucker Hypokalemia-replaced. Prophylaxis - GI - Protonix - DVT - SCD/holding pharmacological prophylaxis in light of recent lumbar surgery Discharge Planning Cleared for discharge to [facility] Bc Oneill MD November 08, 2016 12:03
== END 2016-11-08 14:51 | DRG 64 ==
LOC: NEPE 09:56 → NEDA 13:24 → HIME 17:20 → N05B 11-03 19:03
PROVIDERS: ADMIT Internal Medicine; ATTEND Internal Medicine
PROC: 0T9B70Z Drainage of Bladder with Drainage Device, Via Natural or Artificial Opening (ICD-10-PCS; principal; 2016-11-01)
DX: I63.521 Cerebral infarction due to unspecified occlusion or stenosis of right anterior cerebral artery (principal); G93.40 Encephalopathy, unspecified; I67.2 Cerebral atherosclerosis; G81.91 Hemiplegia, unspecified affecting right dominant side; I16.9 Hypertensive crisis, unspecified; M19.90 Unspecified osteoarthritis, unspecified site; M21.372 Foot drop, left foot; E78.00 Pure hypercholesterolemia, unspecified; E11.8 Type 2 diabetes mellitus with unspecified complications; I10 Essential (primary) hypertension; K21.0 Gastro-esophageal reflux disease with esophagitis; R74.8 Abnormal levels of other serum enzymes; N39.490 Overflow incontinence; K57.90 Diverticulosis of intestine, part unspecified, without perforation or abscess without bleeding; H40.9 Unspecified glaucoma; M48.06 Spinal stenosis, lumbar region; D64.9 Anemia, unspecified; E87.6 Hypokalemia; R47.81 Slurred speech; M54.16 Radiculopathy, lumbar region; Z86.718 Personal history of other venous thrombosis and embolism; Z79.4 Long term (current) use of insulin; Z79.02 Long term (current) use of antithrombotics/antiplatelets
CPT/HCPCS: 70450; 70496; 70498; 70544; 70551; 71010; 71020; 72020; 72158; 76000; 76937; 80048; 80053; 80061; 80202; 80307; 81001; 82010; 82140; 82550; 82552; 82948; 83036; 83605; 83690; 83735; 84100; 84132; 84443; 84484; 85025; 85610; 85730; 86403; 87040; 87077; 87086; 87186; 87205; 87641; 93005; 93306; 93880; 94150; 94640; 94664; 95819; 96365; 96375; A9579; J0360; J0690; J0692; J1200; J1580; J1815; J2370; J2405; J2543; J2710; J3010; J3370; J3475; J3480; J7030; J7040; J7050; J7120; Q9967

== ENCOUNTER 2016-11-27 23:45 | Inpatient (IN) | payer MEDICARE ==
[~2016-11-27] VITALS: Ht 160 cm; Wt 89.4 kg
[~2016-11-27 23:45] MED LIST changes: +AMLO5 PO; +ASPI325T PO; -ASPI81CH PO; -ATOR20TA15 PO; -CELE100C PO; +CLON.2 PO; -GLIP10TA6 PO; -HYDR12.57 PO; +ISOS10TA PO; -METF850T PO; +PRAV40TA PO; -XARE20TA PO
[2016-11-27] MEDS ORDERED: ATEN50TA PO (23:48)
[2016-11-27] MEDS ORDERED: APIX5TAB PO (23:48)
[2016-11-27] MEDS ORDERED: LEVEMIR SQ (23:48)
[2016-11-27] MEDS ORDERED: ISOS30TA3 PO (23:48)
[2016-11-27] MEDS ORDERED: LISI-515 PO (23:48)
[2016-11-27] MEDS ORDERED: CIPR-9 PO (23:48)
[2016-11-27] MEDS ORDERED: POLY17S PO (23:48)
[2016-11-27] MEDS ORDERED: PRAV40TA PO (23:48)
[2016-11-27] MEDS ORDERED: CLON.1 PO (23:48)
[2016-11-27] MEDS ORDERED: VITA500T2 PO (23:48)
[2016-11-27] MEDS ORDERED: LATA0.002 EACH EYE (23:48)
[2016-11-27] MEDS ORDERED: ACET1TAB86 PO (23:48)
[2016-11-27] MEDS ORDERED: AMLO5 PO (23:48)
[2016-11-27] MEDS ORDERED: OXYB5TAB10 PO (23:48)
[2016-11-27] MEDS ORDERED: FERR325T20 PO (23:48)
[2016-11-27] MEDS ORDERED: DOCU1CAP39 PO (23:48)
[2016-11-27] MEDS ORDERED: FLUO20CA12 PO (23:48)
[2016-11-27] MEDS ORDERED: ASPI-99 PO (23:48)
[2016-11-27] MEDS ORDERED: PANT40TA3 PO (23:48)
[2016-11-27] MEDS ORDERED: FAMO20TA2 PO (23:48)
[2016-11-27] MEDS ORDERED: METF500 PO (23:48)
[2016-11-28] VITALS (22 sets, daily range): BP systolic 115–190; BP diastolic 55–96; PULSE 69–114; RESP 18; TEMP 97.9–98.8; O2SAT 97–100
[2016-11-28] MEDS ORDERED: hydrALAZINE HCL 20 MG/ML VIAL IV ONE (01:00)
[2016-11-28] MEDS ORDERED: hydrALAZINE HCL 25 MG TAB PO PRN (01:45)
[2016-11-28] MEDS ORDERED: SODIUM CHLORIDE 0.9% FLUSH 10 ML FLUSH IV FLUSH PRN (01:45)
[2016-11-28] MEDS ORDERED: ONDANSETRON HCL 4 MG/2 ML VIAL IVP PRN (01:45)
[2016-11-28] MEDS ORDERED: ACETAMINOPHEN 325 MG TAB PO PRN (01:45)
[2016-11-28] MEDS ORDERED: MAGNESIUM HYDROXIDE SUSP 30 ML CUP PO PRN (01:45)
[2016-11-28] MEDS ORDERED: NALOXONE HCL 0.4 MG/ML AMP IV PRN (01:45)
[2016-11-28] MEDS ORDERED: BISACODYL 10 MG SUPP RECTAL PRN (01:45)
[2016-11-28] MEDS ORDERED: DEXTROSE 50% IN WATER 50 ML VIAL(D50) IV PRN (02:00)
[2016-11-28] MEDS ORDERED: GLUCAGON 1 MG/ML VIAL OTHER PRN (02:00)
[2016-11-28] MEDS: ONDANSETRON HCL 4 MG/2 ML VIAL IV PUSH PRN ×2 (02:00→08:23)
[2016-11-28] MEDS: cloNIDine HCL 0.1 MG TAB PO PRN (03:33)
--- NOTE | 2016-11-28 04:55 | HHI.HP ---
HPI Service [facility] Primary Care Physician Unknown Admission Diagnosis Hypertensive urgency Chest pain Diagnoses: Chief Complaint: Chest pain with hypertensive urgency Travel History International Travel<30 Days: No Contact w/Intl Traveler <30 Da: No Traveled to Known Affected Are: No History of Present Illness Written by Erica Martinez, acting as scribe for Dr. Bautista on 11/28/16 at 04: 59. Patient is a 71 year old female with past medical history of HTN, DM 2, DVT, L4 to L5 moderate severe spinal stenosis, left greater than the right lumbar radiculitis with left greater than right lower extremity weakness and left foot drop who had a recent L4 to L5 bilateral decompressive dario- laminectomy, bilateral foraminotomy, bilateral partial facet colectomy with decompression of the nerve roots (10/27/16) done by Dr. Ruggiero same day surgery. Patient came in to the hospital 11/01/2016, for complaints of increasing weakness in the left upper and lower extremity. CT of the head revealed no acute intracranial findings. Old penial cyst. 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 MRA brain revealed significant efforts chronic disease without focal stenosis. Carotid Dopplers revealed plaquing at the carotid bulb without hemodynamic limiting flow. EEG without epileptiform activity. Clinical condition has improved patient was transferred to [place] for comprehensive rehabilitation on 11/08/2016. Patient found to have left lower extremity DVT 11/17/2016 was on Xarelto at that time per hematology patient was changed to Eliquis. Low-dose aspirin was added by neurology on 2016. Patient began to have midsternal chest pain described 11 out of 10 at its maximum associated with nausea and vomiting times one as well as shortness of breath. Patient reports the chest pain radiated to the right arm and jaw. EKG at that time revealed sinus rhythm rate [address] elevation in V1 and V2 and inverted T-wave in V1 and aVL No changes when Compared to prior EKG on 11/10/2016. At that time patient had blood pressure of 189/84. Patient was given when necessary clonidine with no relief of blood pressure blood pressure berkley to 210/95 the rapid response/ halicat was called and residents felt it was necessary to transfer to patient to CICU for possible nifedipine drip. Patient was then transferred to CICU given IV hydralazine with blood pressure decreasing to 155/65. Patient evaluated with 2 daughters at bedside bedside is no longer having chest pain. Reports she feels better at this time. Review of Systems ROS Limitations: Poor Historian Except as stated in HPI: all other systems reviewed are Neg Past Family Social History Past Medical History Review of records Glaucoma Chronic Xarelto use Hypertension Diverticulosis Gastroesophageal reflux disease Diabetes mellitus Left foot drop Spinal stenosis Overflow incontinence History of left lower extremity DVT Past Surgical History Review of records L4/L5 decompressive hemilaminectomy Partial hysterectomy cardiac catheterization at [facility] 09/2016- Dr. Shae Patel - per family negative Reported Medications Eq Acetaminophen (Acetaminophen) 325 Mg Tab 650 Mg PO Q4H PRN Catapres (Clonidine) 0.1 Mg Tab 0.1 Mg PO Q8HR PRN Cipro (Ciprofloxacin HCl) 500 Mg Tab 500 Mg PO Q12HR Ditropan (Oxybutynin Chloride) 5 Mg Tab 5 Mg PO Q12HR Levemir Inj (Insulin Detemir) 1,000 unit/ 10 ML Vial 12 Units SQ Q12HR Isosorbide Mononitrate ER (Isosorbide Mononitrate) 30 Mg Nishant 30 Mg PO DAILY@07 Adult Aspirin EC Low Strength (Aspirin) 81 Mg Tabec 81 Mg PO DAILY Fluoxetine (Fluoxetine HCl) 20 Mg Capsule 20 Mg PO DAILY Lisinopril 20 Mg Tab 20 Mg PO DAILY Atenolol 50 Mg Tab 100 Mg PO DAILY Polyethylene Glycol 3350 Powder (Polyethylene Glycol) 17 Gm Pow 17 Gm PO DAILY Pantoprazole (Pantoprazole Sodium) 40 Mg Tab 40 Mg PO DAILY Glucophage (Metformin HCl) 500 Mg Tab 1,000 Mg PO BIDPC Famotidine 20 Mg Tab 10 Mg PO BID Dok (Docusate Sodium) 100 Mg Cap 100 Mg PO BID Eliquis (Apixaban) 5 Mg Tab 5 Mg PO BID C 500/Berkley Hips (Ascorbic Acid) 500 Mg Tab 500 Mg PO BID Ferosul (Ferrous Sulfate) 325 Mg Tablet 325 Mg PO BID Pravachol (Pravastatin) 40 Mg Tab 40 Mg PO HS Norvasc (Amlodipine Besylate) 5 Mg Tab 10 Mg PO DAILY Latanoprost Opth Drops (Latanoprost) 0.005% Drops 1 Drop EACH EYE HS Refrigerate until opened. Allergies: Coded Allergies: Darvocet-N 100 (Verified Allergy, Severe, RASH, 11/01/16) Active Ordered Medications Current Medications Medications (Trade) Dose Ordered Sig/Taisha Route Start Time Stop Time Status Last Admin (Tylenol) 650 mg Q4H PRN PO 11/28/16 01:45 (Norvasc) 10 mg DAILY PO 11/28/16 09:00 (Eliquis) 5 mg BID PO 11/28/16 09:00 (Ecotrin Ec) 81 mg DAILY PO 11/28/16 09:00 (Tenormin) 100 mg DAILY PO 11/28/16 09:00 (Cipro) 500 mg Q12HR PO 11/28/16 09:00 (Catapres) 0.1 mg Q8H PRN PO 11/28/16 01:45 11/28/16 03:33 (Colace) 100 mg BID PO 11/28/16 09:00 (Ferrous Sulfate) 325 mg BIDAC PO 11/28/16 07:00 (PROzac) 20 mg DAILY PO 11/28/16 09:00 (Levemir Inj) 12 units Q12HR SQ 11/28/16 09:00 (Imdur) 30 mg DAILY@07 PO 11/28/16 07:00 (Xalatan 0.005% Opth Soln) 1 drop HS EACH EYE 11/28/16 21:00 (Ditropan) 5 mg Q12HR PO 11/28/16 09:00 (Protonix) 40 mg DAILY@06 PO 11/28/16 06:00 (Miralax) 17 gm DAILY PO 11/28/16 09:00 (Pravachol) 40 mg HS PO 11/28/16 21:00 (Apresoline) 25 mg Q8H PRN PO 11/28/16 01:45 (Zofran Inj) 4 mg Q6H PRN IV PUSH 11/28/16 01:45 11/28/16 02:00 (NS Flush) 2 ml UNSCH PRN IV FLUSH 11/28/16 01:45 (NS Flush) 2 ml BID IV FLUSH 11/28/16 09:00 (Tylenol) 650 mg Q4H PRN PO 11/28/16 01:45 (Narcan Inj) 0.4 mg UNSCH PRN IV 11/28/16 01:45 (Milk Of Magnesia Liq) 30 ml Q12H PRN PO 11/28/16 01:45 (Dulcolax Supp) 10 mg DAILY PRN RECTAL 11/28/16 01:45 (Prinivil) 40 mg DAILY PO 11/28/16 09:00 (D50w (Vial) Inj) 50 ml UNSCH PRN IV 11/28/16 02:00 (Glucagon Inj) 1 mg UNSCH PRN OTHER 11/28/16 02:00 Family History Mother has Hypertension Father unknown medical history Social History Denies alcohol use Denies tobacco use Denies illicit drug use Physical Exam Vital Signs Vital Signs Date Time Temp Pulse Resp B/P Pulse Ox O2 Delivery O2 Flow Rate FiO2 11/28/16 02:00 96 11/28/16 01:30 155/65 11/28/16 01:30 100 21 11/28/16 01:15 170/83 11/28/16 01:00 114 11/28/16 00:00 98.1 84 18 190/96 100 Physical Exam GENERAL: This is a well-nourished, well-developed patient, patient appears fatigued able to awake and answer questions appropriately SKIN: No rashes, ecchymoses or lesions. Cool and dry. HEAD: Atraumatic. Normocephalic. No temporal or scalp tenderness. EYES: Extraocular motions intact. No scleral icterus. No injection or drainage. CARDIOVASCULAR: Regular rate and rhythm with 2-3/6 systolic murmur primarily located in pulmonic area RESPIRATORY: Clear to auscultation. Breath sounds equal bilaterally. No wheezes , rales, or rhonchi. GASTROINTESTINAL: Abdomen soft, non-tender, nondistended. No hepato-splenomegaly , or palpable masses. No guarding. MUSCULOSKELETAL: Edema left lower extremity greater than right NEUROLOGICAL: Awake and alert. Left sided weakness. 4 out of 5 right upper and lower extremity 3 out of 5 left upper and lower extremity Normal speech. Laboratory Laboratory Tests Test 11/28/16 00:01 Troponin I LESS THAN 0.02 Assessment and Plan Problem List: (1) Hypertensive urgency ICD Code: I16.0 Status: Acute (2) Chest pain ICD Code: R07.9 Status: Acute Assessment and Plan Patient is a 71 year old female with past medical history of HTN, DM 2, DVT, L4 to L5 moderate severe spinal stenosis, left greater than the right lumbar radiculitis with left greater than right lower extremity weakness and left foot drop who had a recent L4 to L5 bilateral decompressive dario- laminectomy, bilateral foraminotomy, bilateral partial facet colectomy with decompression of the nerve roots (10/27/16) done by Dr. Ruggiero same day surgery. Patient came in to the hospital 11/01/2016, for complaints of increasing weakness in the left upper and lower extremity. 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 Clinical condition has improved patient was transferred to [place] for comprehensive rehabilitation on 11/08/2016. Patient found to have left lower extremity DVT 11/17/2016 was on Xarelto at that time per hematology patient was changed to Eliquis. Low-dose aspirin was added by neurology on 2016. Patient began to have midsternal chest pain and hypertensive urgency patient then transferred to [facility]. Chest pain likely related to hypertensive urgency monitor serial enzymes and serial EKGs Initial EKG reviewed and revealed revealed sinus rhythm rate [address] elevation in V1 and V2 and inverted T-wave in V1 and aVL No changes when Compared to prior EKG on 11/10/2016 Her daughters at bedside patient had a cardiac catheterization September [address] Patel which was negative at that time. 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 MRA brain revealed significant intracranial atherosclerotic vascular disease - continue aspirin 81mg and pravastatin 40 mg daily at bedtime - Hematology consulted - Dr. Cooper started Eliquis 5mg BID. Discontinue Xarelto. - MRI shows restricted diffusion abnormality involving the corpus callosum and right-sided periventricular white matter which is more extensive than on the comparison study of 04/10. - Sedimentation rate and CRP elevated. RF negative. DEVON and RPR negative. - Neurology following, appreciate their assistance, recommends Eliquis and low dose aspirin and repeat MRI of the brain next week. DM 2 - Continue Levemir 12 units twice a day, with low dose insulin sliding scale - Monitor Accu-Cheks. - A1c 10.4 on 11/01. UTI - Urine culture growing Citrobacter freundii. Previously on Macrobid, changed to Cipro 500 mg PO Q12hr with increased sensitivity per JOSE. Continue treatment for a total of 7 days. Overflow incontinence/Urinary Retention - Continue treatment Ditropan 5 mg by mouth 2 times a day DVT prop - Eliquis Discussed with Dr. Bonilla, patient and daughters at bedside Physician Certification 2 Midnight Certification Type: Admission for Inpatient Services Order for Inpatient Services The services are ordered in accordance with Medicare regulations or non- Medicare payer requirements, as applicable. In the case of services not specified as inpatient-only, they are appropriately provided as inpatient services in accordance with the 2-midnight benchmark. Estimated LOS (days): 3 days is the estimated time the patient will need to remain in the hospital, assuming treatment plan goals are met and no additional complications. Post-Hospital Plan: Not yet determined Erica Martinez Nov 28, 2016 04:55
[2016-11-28] MEDS: PANTOPRAZOLE SOD 40 MG DELAYED RELEASE TAB PO SCH (06:25)
[2016-11-28] MEDS: ISOSORBIDE MONONITRATE 30 MG TAB PO SCH (06:25)
[2016-11-28] MEDS: FERROUS SULFATE 325 MG (65 MG ELEMENTAL IRON) TAB PO SCH ×2 (06:25→16:00)
[2016-11-28] MEDS: INSULIN ASPART SUPPLEMENTAL SCALE SQ SCH ×4 (06:35→20:15)
[2016-11-28] MEDS: ACETAMINOPHEN 325 MG TAB PO PRN ×2 (06:41→21:54)
[2016-11-28] MEDS: APIXABAN 5 MG TABLET PO SCH ×2 (07:56→21:30)
[2016-11-28] MEDS: FLUoxetine HCL 20 MG CAP PO SCH (07:56)
[2016-11-28] MEDS: DOCUSATE SODIUM 100 MG CAP PO SCH ×2 (07:56→21:30)
[2016-11-28] MEDS: ASPIRIN EC 81 MG TABEC PO SCH (07:56)
[2016-11-28] MEDS: ATENOLOL 50 MG TAB PO SCH (07:57)
[2016-11-28] MEDS: CIPROFLOXACIN 500 MG TAB PO SCH ×2 (07:57→21:29)
[2016-11-28] MEDS: SODIUM CHLORIDE 0.9% FLUSH 10 ML FLUSH IV FLUSH SCH ×2 (07:58→21:32)
[2016-11-28] MEDS: LISINOPRIL 20 MG TAB PO SCH (07:59)
[2016-11-28] MEDS: OXYBUTYNIN CHLORIDE 5 MG TAB PO SCH ×2 (07:59→21:29)
[2016-11-28] MEDS: POLYETHYLENE GLYCOL 17 GM PKG PO SCH (07:59)
[2016-11-28] MEDS: INSULIN DETEMIR 100 UNITS/ML VIAL SQ SCH ×2 (08:04→21:28)
[2016-11-28] MEDS ORDERED: LISINOPRIL 20 MG TAB PO SCH (09:00)
--- NOTE | 2016-11-28 10:17 | RADRPT ---
EXAM DATE/TIME: 11/28/2016 09:54 [facility] COMPARISON: CHEST SINGLE AP, November 22, 2016, 11:45. INDICATIONS : Congestion. MEDICAL HISTORY : Cardiovascular disease. Hypertension Diabetes mellitus type II. SURGICAL HISTORY : None. ENCOUNTER: Initial ACUITY: 1 month PAIN SCORE: 0/10 LOCATION: Bilateral chest FINDINGS: A single view of the chest demonstrates the lungs to be symmetrically aerated without evidence of mas s, infiltrate or effusion. The cardiomediastinal contours are unremarkable. Osseous structures are intact. CONCLUSION: The lungs are clear. Flash Brown MD on November 28, 2016 at 10:14 Board Certified Radiologist. This report was verified electronically.
--- NOTE | 2016-11-28 11:00 | RADRPT ---
EXAM DATE/TIME: 11/28/2016 09:56 [facility] COMPARISON: No previous studies available for comparison. INDICATIONS : Congestion and headaches. MEDICAL HISTORY : None. SURGICAL HISTORY : None. ENCOUNTER: Initial ACUITY: 2 days PAIN SCORE: 0/10 LOCATION: Bilateral cranial FINDINGS: Three-view examination demonstrates hyperostosis of the frontal and parietal bones. No gross abnorma lity seen in the paranasal sinuses. The mucosal thickening or air-fluid levels. CONCLUSION: No gross abnormality seen the paranasal sinuses. Hyperostosis of the calvarium. Flash Brown MD on November 28, 2016 at 10:58 Board Certified Radiologist. This report was verified electronically.
[2016-11-28] MEDS ORDERED: PRAVASTATIN SOD 40 MG TAB PO SCH (21:00)
[2016-11-28] MEDS ORDERED: LATANOPROST 0.005% OPHT SOLN 2.5 ML BTL EACH EYE SCH (21:00)
--- NOTE | 2016-11-28 22:04 | EKG ---
Date Performed: 11/28/2016 Time Performed: 03:06:24 PTAGE: 71 years EKG: Sinus tachycardia Leftward axis QRS changes V3/V4 may be due to LVH but cannot rule out ant erior infarct Left ventricular hypertrophy Lateral ST-T changes may be due to hypertrophy and/or isch emia Since previous tracing, no significant change noted Abnormal ECG PREVIOUS TRACING : 11/27/2016 20.08.40 DOCTOR: Evangelina Huston Interpretating Date/Time 11/28/2016 22:03:57
[2016-11-29] VITALS: BP 161/72; PULSE 80; RESP 16; TEMP 97.7; O2SAT 97
[2016-11-29] MEDS: ACETAMINOPHEN 325 MG TAB PO PRN ×2 (01:51→06:01)
[2016-11-29 04:00] VITALS: BP 181/77; PULSE 80; RESP 18; TEMP 98.2; O2SAT 97
[2016-11-29] MEDS: INSULIN ASPART SUPPLEMENTAL SCALE SQ SCH ×2 (06:00→11:00)
[2016-11-29] MEDS: ISOSORBIDE MONONITRATE 30 MG TAB PO SCH (06:01)
[2016-11-29] MEDS: PANTOPRAZOLE SOD 40 MG DELAYED RELEASE TAB PO SCH (06:01)
[2016-11-29] MEDS: FERROUS SULFATE 325 MG (65 MG ELEMENTAL IRON) TAB PO SCH (06:02)
[2016-11-29] MEDS: cloNIDine HCL 0.1 MG TAB PO PRN (06:03)
[2016-11-29 07:32] LABS: AUTOMATED NEUTROPHIL # 1.6 TH/MM3 (1.8-7.7); BASOPHIL % 0.7 % (0.0-2.0); EOSINOPHIL # 0.1 TH/MM3 (0-0.4); EOSINOPHIL % 1.8 % (0.0-4.0); HEMATOCRIT 30.9 % (35.0-46.0); HEMO FLAGS DIFF FINAL; LYMPH % 38.5 % (9.0-44.0); LYMPHOCYTE # 1.5 TH/MM3 (1.0-4.8); MEAN CELL VOLUME 85.2 FL (80.0-100.0); MEAN CORPUSCULAR HEMOGLOBIN 27.9 PG (27.0-34.0); MEAN CORPUSCULAR HGB CONC 32.7 % (32.0-36.0); MONO % 16.6 % (0.0-8.0); NEUT % 42.4 % (16.0-70.0); PLATELET COUNT 208 TH/MM3 (150-450); RED BLOOD COUNT 3.62 MIL/MM3 (4.00-5.30); WHITE BLOOD COUNT 3.8 TH/MM3 (4.0-11.0)
[2016-11-29 07:55] LABS: BICARBONATE 28.1 MEQ/L (21.0-32.0); POTASSIUM 4.1 MEQ/L (3.5-5.1)
[2016-11-29 08:00] VITALS: BP 152/68; PULSE 71; PULSE 74; PULSE 82; RESP 18; TEMP 98.3; O2SAT 96
[2016-11-29] MEDS: LISINOPRIL 20 MG TAB PO SCH (08:46)
[2016-11-29] MEDS: OXYBUTYNIN CHLORIDE 5 MG TAB PO SCH (08:46)
[2016-11-29] MEDS: CIPROFLOXACIN 500 MG TAB PO SCH (08:46)
[2016-11-29] MEDS: ATENOLOL 50 MG TAB PO SCH (08:46)
[2016-11-29] MEDS: DOCUSATE SODIUM 100 MG CAP PO SCH (08:46)
[2016-11-29] MEDS: FLUoxetine HCL 20 MG CAP PO SCH (08:46)
[2016-11-29] MEDS: APIXABAN 5 MG TABLET PO SCH (08:46)
[2016-11-29] MEDS: POLYETHYLENE GLYCOL 17 GM PKG PO SCH (08:47)
[2016-11-29] MEDS: SODIUM CHLORIDE 0.9% FLUSH 10 ML FLUSH IV FLUSH SCH (08:47)
[2016-11-29] MEDS: ASPIRIN EC 81 MG TABEC PO SCH (08:47)
[2016-11-29 09:02] VITALS: O2SAT 98
[2016-11-29] MEDS ORDERED: guaiFENesin E.R. 600 MG TAB PO SCH (10:00)
[2016-11-29] MEDS ORDERED: ACETAMINOPHEN/HYDROcodone 325 MG/5 MG TAB PO PRN (10:00)
[2016-11-29] MEDS ORDERED: TEMAZEPAM 15 MG CAP PO PRN (10:00)
--- NOTE | 2016-11-29 10:04 | HHI.PR ---
Subjective Remarks Follow up for hypertension. Ms. Contreras is currently doing well. She does have some lower back pain and leg pain - these are chronic. No chest pain, SOB, fever , chills. Daughter at bedside. Objective Vitals Vital Signs Date Time Temp Pulse Resp B/P Pulse Ox O2 Delivery O2 Flow Rate FiO2 11/29/16 08:00 98.3 71 18 152/68 96 11/29/16 04:00 98.2 80 18 181/77 97 11/29/16 00:00 97.7 80 16 161/72 97 11/28/16 20:00 97.9 78 18 162/73 97 11/28/16 18:27 98.4 69 18 143/66 99 11/28/16 17:05 76 11/28/16 16:34 75 11/28/16 15:08 98.8 73 18 115/55 98 11/28/16 15:08 76 11/28/16 14:32 72 11/28/16 13:03 79 11/28/16 12:02 77 11/28/16 11:24 98.7 79 18 143/68 97 11/28/16 11:24 80 11/28/16 10:24 79 11/28/16 10:12 100 21 I/O 11/28/16 11/28/16 11/28/16 11/29/16 11/29/16 11/29/16 06:59 14:59 22:59 06:59 14:59 22:59 Intake Total 120 ml 600 ml 120 ml Output Total 250 ml 400 ml Balance -130 ml 200 ml 120 ml Intake Oral 120 ml 600 ml 120 ml IV Total 0 ml 0 ml Output Urine Total 250 ml 400 ml # Voids 0 3 # Bowel Movements 0 1 Result Diagram: 11/29/16 0633 11/29/16 0633 Imaging Last Impressions Sinuses X-Ray 11/28/16 0000 Signed Impressions: Service Date/Time: Monday, November 28, 2016 09:56 - CONCLUSION: No gross abnormality seen the paranasal sinuses. Hyperostosis of the calvarium. Flash Brown MD Chest X-Ray 11/28/16 0000 Signed Impressions: Service Date/Time: Monday, November 28, 2016 09:54 - CONCLUSION: The lungs are clear. Flash Brown MD Objective Remarks GENERAL: AOx3, NAD. SKIN: Warm and dry. HEAD: Normocephalic. EYES: No scleral icterus. No injection or drainage. NECK: Supple, trachea midline. No JVD or lymphadenopathy. CARDIOVASCULAR: Regular rate and rhythm without murmurs, gallops, or rubs. RESPIRATORY: Breath sounds equal bilaterally. No accessory muscle use. GASTROINTESTINAL: Abdomen soft, non-tender, nondistended. MUSCULOSKELETAL: No cyanosis, or edema. BACK: Nontender without obvious deformity. No CVA tenderness. A/P Problem List: (1) Hypertensive urgency ICD Code: I16.0 Status: Acute (2) Chest pain ICD Code: R07.9 Status: Acute Assessment and Plan Patient is a 71 year old female with past medical history of HTN, DM 2, DVT, L4 to L5 moderate severe spinal stenosis, left greater than the right lumbar radiculitis with left greater than right lower extremity weakness and left foot drop who had a recent L4 to L5 bilateral decompressive dario- laminectomy, bilateral foraminotomy, bilateral partial facet colectomy with decompression of the nerve roots (10/27/16) done by Dr. Ruggiero same day surgery. Patient came in to the hospital 11/01/2016, for complaints of increasing weakness in the left upper and lower extremity. 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 Clinical condition has improved patient was transferred to [place] for comprehensive rehabilitation on 11/08/2016. Patient found to have left lower extremity DVT 11/17/2016 was on Xarelto at that time per hematology patient was changed to Eliquis. Low-dose aspirin was added by neurology on 2016. Patient began to have midsternal chest pain and hypertensive urgency patient then transferred to [facility]. Chest pain likely related to hypertensive urgency Troponins negative. Initial EKG reviewed and revealed revealed sinus rhythm rate [address] elevation in V1 and V2 and inverted T-wave in V1 and aVL No changes when Compared to prior EKG on 11/10/2016 No further chest pain. Hypertensive urgency Continue patient's current blood pressure medication with atenolol 100 mg daily, amlodipine 10 mg daily, isosorbide 30 mg daily increased lisinopril to 40 mg daily Continue clonidine as needed and hydralazine as needed BP well controlled. 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 MRA brain revealed significant intracranial atherosclerotic vascular disease - continue aspirin 81mg and pravastatin 40 mg daily at bedtime - Hematology consulted - Dr. Cooper started Eliquis 5mg BID. Discontinue Xarelto. - MRI shows restricted diffusion abnormality involving the corpus callosum and right-sided periventricular white matter which is more extensive than on the comparison study of 04/10. - Sedimentation rate and CRP elevated. RF negative. DEVON and RPR negative. - Neurology following, appreciate their assistance, recommends Eliquis and low dose aspirin and repeat MRI of the brain next week. DM 2 - Continue Levemir 12 units twice a day, with low dose insulin sliding scale - Monitor Accu-Cheks. - A1c 10.4 on 11/01. UTI - Urine culture growing Citrobacter freundii. Previously on Macrobid, changed to Cipro 500 mg PO Q12hr with increased sensitivity per JOSE. Received Ciprofloxacin. Overflow incontinence/Urinary Retention - Continue treatment Ditropan 5 mg by mouth 2 times a day DVT prop - Eliquis Discharge to SNF today. Discharge patient to SNF Condition on discharge: Improved Heart healthy Diet as tolerated Ad Kristyn activity Rx written: Gabapentin 200 mg by mouth 3 times a day Guaifenesin 200 mg by mouth liquid every 4 hours when necessary [place] 53 25 mg by mouth every 6 hours when necessary for pain. Follow-up with primary care physician per SNF arrangements. Kavin Thacker DO Nov 29, 2016 10:04 am
[2016-11-29] MEDS ORDERED: guaiFENesin SOLUTION 200 MG/10 ML CUP PO PRN (10:15)
[2016-11-29] MEDS ORDERED: MUPIROCIN 2% OINT 22 GM TUBE TOPICAL SCH (10:30)
[2016-11-29] MEDS: INSULIN DETEMIR 100 UNITS/ML VIAL SQ SCH (11:10)
[2016-11-29] MEDS ORDERED: COUG100S PO (11:27)
[2016-11-29] MEDS ORDERED: HYDR-3516 PO (11:27)
[2016-11-29] MEDS ORDERED: GABA100C4 PO (11:27)
[2016-11-29 12:00] VITALS: BP_SYST 126; BP_SYST 153; BP_DIAS 61; BP_DIAS 89; PULSE 68; RESP 20; TEMP 97; O2SAT 95; O2SAT 97
[2016-11-29] MEDS ORDERED: GABAPENTIN 100 MG CAP PO SCH (13:00)
== END 2016-11-29 13:28 | DRG 305 ==
LOC: HCIS 23:45 → N04A 11-28 18:18
PROVIDERS: ADMIT Hospitalist; ATTEND Hospitalist
DX: I16.0 Hypertensive urgency (principal); N39.0 Urinary tract infection, site not specified; B96.89 Other specified bacterial agents as the cause of diseases classified elsewhere; R07.89 Other chest pain; E11.9 Type 2 diabetes mellitus without complications; Z79.84 Long term (current) use of oral hypoglycemic drugs; H40.9 Unspecified glaucoma; K21.9 Gastro-esophageal reflux disease without esophagitis; I10 Essential (primary) hypertension; Z86.718 Personal history of other venous thrombosis and embolism; Z79.02 Long term (current) use of antithrombotics/antiplatelets; Z79.82 Long term (current) use of aspirin; Z86.73 Personal history of transient ischemic attack (TIA), and cerebral infarction without residual deficits; N39.490 Overflow incontinence; R33.9 Retention of urine, unspecified
CPT/HCPCS: 70220; 71010; 80048; 82948; 84484; 85025; 93005; J0360; J1815; J2405